=== PATIENT | female | born 1970 | race Caucasian/White ===

== ENCOUNTER → 2020-11-21 09:19 | Outpatient (BNVA) | payer OTHER, SELFPAY | PROVIDERS: PCP Internal Medicine; Visit Provider Nurse Practitioner ==

== ENCOUNTER 2020-11-25 15:42 | Outpatient (REF) | payer OTHER, SELFPAY ==
--- NOTE | ~2020-11-25 | XR_ITS ---
EXAMINATION: XR KNEE, RIGHT CLINICAL INFORMATION: Pain in right knee COMPARISON: None TECHNIQUE: Four views of the right knee. FINDINGS: No fracture or subluxation. Compartmental joint spaces are maintained. Small joint effusion. The soft tissues appear unremarkable. XR/XR knee RT 4V IMPRESSION: Small joint effusion. No acute osseous abnormality.
== END 2020-11-25 15:43 | disposition home or self-care (01) ==
LOC: HO.HMGCX 15:42
PROVIDERS: PCP Internal Medicine; Visit Provider Hospitalist
DX: M25.561 Pain in right knee (principal)
CPT/HCPCS: 73564

== ENCOUNTER 2020-12-17 18:27 | Outpatient (REF) | payer OTHER, SELFPAY ==
--- NOTE | ~2020-12-17 | MR_ITS ---
EXAMINATION: MR KNEE WITHOUT CONTRAST, RIGHT CLINICAL INFORMATION: Pain in right knee. Patient reports medial pain with symptoms for 2 months, no injury. COMPARISON: XR right knee 11/25/2020 TECHNIQUE: MRI of the knee without contrast was performed using routine sequences on a high-field scanner. FINDINGS: MENISCI: Medial Meniscus: Intact Lateral Meniscus: Intact LIGAMENTS: Cruciate: Intact Collateral: Intact EXTENSOR MECHANISM: Intact ARTICULAR CARTILAGE/BONE: Patellofemoral Compartment: Normal Medial Compartment: There is moderate patchy bone marrow edema in the medial femoral condyle extending to the intercondylar region, most intense in the immediate subchondral region. There is associated mild cortical thickening or sclerosis. There is no definite discrete subchondral fracture. The overlying cartilage appears intact. There is associated edema in the adjacent intercondylar fat. Lateral Compartment: Normal. JOINT FLUID AND BURSAE: There is a trace joint effusion. MR/MR knee RT wo con IMPRESSION: 1. Moderate patchy bone marrow edema in the medial femoral condyle, most intense in the subarticular region. Although there is no definite discrete fracture identified, this may represent an insufficiency injury. 2. Trace joint effusion. 3. Intact menisci and ligaments.
== END 2020-12-17 18:28 | disposition home or self-care (01) ==
LOC: HO.MRI 18:27
PROVIDERS: PCP Internal Medicine; Visit Provider Internal Medicine
DX: M25.561 Pain in right knee (principal)
CPT/HCPCS: 73721

== ENCOUNTER → 2021-05-27 09:01 | Outpatient (BNVA) | payer OTHER, SELFPAY | PROVIDERS: PCP Internal Medicine; Visit Provider Nurse Practitioner ==

== ENCOUNTER 2021-08-20 09:46 | Outpatient (REF) | payer OTHER, SELFPAY | END 2021-08-20 09:47 | disposition home or self-care (01) | LOC: HO.HMGCLDS 09:46 | PROVIDERS: PCP Internal Medicine; Visit Provider Internal Medicine | DX: Z20.822 Contact with and (suspected) exposure to COVID-19 (principal) | CPT/HCPCS: C9803; U0003; U0005 ==

== ENCOUNTER 2021-09-24 08:15 | Outpatient (REF) | payer OTHER, SELFPAY | END 2021-09-24 08:16 | disposition home or self-care (01) | LOC: HO.HMGCLDS 08:15 | PROVIDERS: Visit Provider Internal Medicine | DX: Z20.822 Contact with and (suspected) exposure to COVID-19 (principal) | CPT/HCPCS: C9803; U0003; U0005 ==

== ENCOUNTER 2022-05-02 07:01 | Outpatient (REF) | payer OTHER, SELFPAY ==
[2022-05-02 11:10] LABS: MANUAL DIFF FLAG NO
[2022-05-02 11:16] LABS: Basophils Percent Auto 0.5 % (0-2); Eosinophils Absolute Auto 0.3 X10*3/uL (0.0-0.4); Eosinophils Percent Auto 4.2 % (0-4); Hematocrit 38.8 % (37.0-47.0); Hemoglobin 12.2 g/dl (12.0-16.0); Imm Gran Abs Auto 0.03 X10*3/uL (0.00-0.03); Imm Gran Pct Auto 0.4 % (0.0-0.4); Lymphocytes Absolute Auto 2.9 X10*3/uL (1.2-4.9); Lymphocytes Percent Auto 38.8 % (20-40); Mean Corpuscular HGB Conc 31.4 g/dl (31.0-35.0); Mean Corpuscular Hemoglobin 23.2 pg (27.0-33.0); Mean Corpuscular Volume 73.9 fL (80.0-98.0); Mean Platelet Volume 10.9 fL (9.4-12.3); Monocytes Absolute Auto 0.7 X10*3/uL (0.1-1.2); Monocytes Percent Auto 9.1 % (2-11); Neutrophils Absolute Auto 3.5 x10*3/uL (2.0-8.3); Platelet Count 209 X10*3/uL (160-400); Red Blood Count 5.25 X10*6/uL (4.20-5.50); Red Cell Distribution Width 18.5 % (11.0-16.0); White Blood Count 7.4 X10*3/uL (4.8-10.8)
[2022-05-02 11:28] LABS: Appearance Urine CLEAR; Color Urine YELLOW; Glucose Urine UA NEG (NEG); Leukocyte Esterase Urine NEG (NEG); Nitrite Urine NEG (NEG); PH 6.5 (5.0-8.0); Urine Blood TRACE (NEG); Urine Ketones NEG (NEG); Urine Protein TRACE MG/DL (NEG-TRACE)
[2022-05-02 11:42] LABS: Alanine Aminotransferase 10 U/L (0-31); Albumin Level 4.3 g/dL (3.5-5.0); Alkaline Phosphatase 66 U/L (39-117); Anion Gap 17 (12-20); Aspartate Amino Transferase 13 U/L (5-31); Bilirubin Total 0.4 mg/dL (0.0-1.0); Blood Urea Nitrogen 11 mg/dL (9-16); Calcium 8.8 mg/dL (8.4-10.2); Carbon Dioxide 21 mmol/L (22-29); Chloride 104 mmol/L (96-108); Cholesterol 140 mg/dL; Estimated Glomerular Filt Rate > 60; Glucose Fasting 95 mg/dL (60-99); HDL Cholesterol 57 mg/dL; LDL Cholesterol Calculated 40 mg/dl; Sodium 138 mmol/L (135-145); Total Protein 6.8 g/dL (6.5-8.0); Triglycerides 219 mg/dL
[2022-05-02 11:57] LABS: RBC Urine 0 /HPF (0); Squamous Epithelial Cell Urine 3+ /LPF; WBC Urine 0 /HPF (0-4)
[2022-05-02 12:03] LABS: TSH reflex Free T4 0.86 uIU/mL (0.32-4.0)
== END 2022-05-02 07:02 | disposition home or self-care (01) ==
LOC: HO.HMGCLDS 07:01
PROVIDERS: PCP Internal Medicine; Visit Provider Internal Medicine
DX: Z00.00 Encounter for general adult medical examination without abnormal findings (principal)
CPT/HCPCS: 36415; 80053; 80061; 81001; 84443; 85025

== ENCOUNTER 2022-05-13 16:25 | Outpatient (REF) | payer OTHER, SELFPAY ==
[2022-05-13 17:19] LABS: Influenza A PCR NEGATIVE (Negative); Influenza B PCR NEGATIVE (Negative); Resp Syncy Virus RNA Qual PCR NEGATIVE (Negative); SARS COV2 PCR INHOUSE POSITIVE (Negative)
== END 2022-05-13 16:26 | disposition home or self-care (01) ==
LOC: HO.LNP 16:25
PROVIDERS: Visit Provider Family Medicine
DX: Z20.822 Contact with and (suspected) exposure to COVID-19 (principal); B34.9 Viral infection, unspecified
CPT/HCPCS: 0241U

== ENCOUNTER 2022-06-17 14:34 | Outpatient (REF) | payer OTHER, SELFPAY ==
[2022-06-20 14:16] LABS: HPV mRNA E6/E7 rflx Not Detected (Not Detected)
== END 2022-06-17 14:35 | disposition home or self-care (01) ==
LOC: HO.LNP 14:34
PROVIDERS: Visit Provider Internal Medicine
DX: Z01.419 Encounter for gynecological examination (general) (routine) without abnormal findings (principal); Z11.51 Encounter for screening for human papillomavirus (HPV)
CPT/HCPCS: 87624; 88142

== ENCOUNTER 2022-10-21 11:19 | Outpatient (REF) | payer OTHER, SELFPAY ==
[2022-10-21 12:15] LABS: Influenza A PCR NEGATIVE (Negative); Influenza B PCR NEGATIVE (Negative); Resp Syncy Virus RNA Qual PCR NEGATIVE (Negative); SARS COV2 PCR INHOUSE POSITIVE (Negative)
== END 2022-10-21 11:20 | disposition home or self-care (01) ==
LOC: HO.LNP 11:19
PROVIDERS: Visit Provider Internal Medicine
DX: R43.9 Unspecified disturbances of smell and taste (principal); Z20.822 Contact with and (suspected) exposure to COVID-19
CPT/HCPCS: 0241U

== ENCOUNTER 2023-06-14 08:59 | Outpatient (AMB) | payer OTHER, SELFPAY ==
--- NOTE | 2023-06-14 09:30 | MHC.OFFWIV ---
Intake Vital Signs 06/14/23 09:34 Height 4 ft 10 in Weight 54.148 kg BMI 24.9 BP 120/72 Blood Pressure Location Lt brachial Position Sitting Pulse 82 Pulse Source Pulse Oximeter Temp 96.3 F L Temp Source Temporal Artery Scan Pulse Oximetry (%) 100 Oxygen Delivery Method Room Air Intake Visit Reasons: EST/blood pressure issues Intake Note: Pt is here c/o having high BP over the weekend reading 163/103. Pt states she did take her bp med today and is reading 120/72. Patient Tobacco Use Status: Current everyday Tobacco user Allergies No Known Allergies [No Known Allergies*] Allergy (Verified 06/14/23 09:30) Do you need a note to return to daycare/school/sports/work: Yes HPI EST/blood pressure issues HPI Details Patient presents with intermittent heart palpitations over the past 1-2 weeks. She notes some episodes of high blood pressure even when taking her blood pressure med. Over the weekend she got readings of 160s/100s on a few occasions with a home cuff. She notes often times at work she will be standing and get heart palpitations where it feels like her heart will beat out of her chest. It lasts a few minutes then resolved but over return over the next hour or 2. I did review her previous labs from last year and she did have mild anemia and a low TSH but within normal limits. No personal history of thyroid disease however she notes significant family history. She also notes intake of 4 alcoholic drinks per night times 20 years. She notes when she is drinking she does not have these palpitations. Denies chest pain, shortness of breath, dyspnea on exertion. PENDING SALE TO [facility] Medical History Chronic anxiety COPD, mild Diarrhea Dysphagia GERD (gastroesophageal reflux disease) Hemorrhoids Surgical History History of section History of esophagogastroduodenoscopy (EGD) History of tubal ligation Hx of cholecystectomy Hx of colonoscopy Hx of tonsillectomy Family History Father No problems noted. Mother No problems noted. Social History Housing: House Alcohol intake: current Alcohol intake frequency: 3 or more drinks per day Patient Tobacco Use Status: Current everyday Tobacco user Cigarette Packs Per Day: 1 Cigarettes Per Day: 20 e-Cigarette/Vaping Use: Never Used service: No Current occupational status: employed Cognitive needs: No Hearing needs: No Vision needs: Yes Review of Systems Const Reports as per HPI and Reports no additional complaints Card Reports as per HPI and Reports no additional complaints Resp Reports as per HPI and Reports no additional complaints Neuro Reports no additional complaints and Reports as per HPI Physical Exam Vital Signs: Last Vital Signs Temp 96.3 F L 06/14/23 09:34 Pulse 82 06/14/23 09:34 BP 120/72 06/14/23 09:34 Pulse Ox 100 06/14/23 09:34 Oxygen Delivery Method Room Air 06/14/23 09:34 BMI result Body Mass Index 24.9 Const General: cooperative, comfortable and no acute distress Orientation/consciousness: patient oriented x3 Resp Effort & Inspection: normal respiratory effort Auscultation: clear to auscultation bilaterally Cardio Rate: regular rate Rhythm: regular rhythm Heart sounds: S1 normal heart sound present and S2 normal heart sound present Neuro General: patient oriented x3 Extrem General: Yes no pedal edema Office Procedures EKG 36101-[id number], Complete Results Reviewed Results Reviewed: EKG reviewed by me shows normal sinus rhythm with regular rate and intervals are no signs of ischemia. Assessment & Plan Assessment & Plan (1) Heart palpitations: Code(s): R00.2 - Palpitations Plan: Will check basic labs to rule out thyroid disease, anemia, electrolyte imbalance. I did discuss with patient that alcohol likely plays a role in her symptoms as withdrawals can cause arrhythmia. We discussed alcohol intake reduction moving towards complete cessation. She has follow-up with her PCP in 2-3 weeks. I encouraged her to reduce her nightly alcohol intake by 1 drink per week between now and then to see if it makes a difference in her symptoms. PCP may consider Holter monitor p.r.n. if symptoms persist. ER if chest pain shortness of breath or any persisting palpitations. (2) Alcohol intake above recommended sensible limits with complication: Code(s): F10.99 - Alcohol use, unspecified with unspecified alcohol-induced disorder Orders: Orders Complete Blood Count Auto Diff Today R00.2 - Palpitations IRON PROFILE Today R00.2 - Palpitations Basic Metabolic Panel Today R00.2 - Palpitations TSH reflex Free T4 Today R00.2 - Palpitations Coding Level of Care Code Est Pt Level 4 (73985) Diagnoses Heart palpitations R00.2 Alcohol intake above recommended sensible limits with complication F10.99 CPT Codes EKG - CPT: 28803-[id number], Complete ([id number])
[2023-06-14 09:34] VITALS: BP 120/72; PULSE 82; TEMP 35.7; O2SAT 100; BMI 24.9
== END 2023-06-14 10:49 | disposition home or self-care (01) ==
PROVIDERS: PCP Internal Medicine; Visit Provider Physician Assistant
DX: R00.2 Palpitations (principal); F10.99 Alcohol use, unspecified with unspecified alcohol-induced disorder
CPT/HCPCS: 93000; 99214

== ENCOUNTER 2023-06-14 10:51 | Outpatient (REF) | payer OTHER, SELFPAY ==
[2023-06-14 13:06] LABS: MANUAL DIFF FLAG NO
[2023-06-14 13:16] LABS: Basophils Percent Auto 0.3 % (0-2); Eosinophils Absolute Auto 0.1 X10*3/uL (0.0-0.4); Eosinophils Percent Auto 1.2 % (0-4); Hematocrit 38.9 % (37.0-47.0); Hemoglobin 11.5 g/dl (12.0-16.0); Imm Gran Abs Auto 0.04 X10*3/uL (0.00-0.03); Imm Gran Pct Auto 0.4 % (0.0-0.4); Lymphocytes Absolute Auto 2.7 X10*3/uL (1.2-4.9); Mean Corpuscular HGB Conc 29.6 g/dl (31.0-35.0); Mean Corpuscular Hemoglobin 22.2 pg (27.0-33.0); Mean Corpuscular Volume 75.1 fL (80.0-98.0); Mean Platelet Volume 10.6 fL (9.4-12.3); Monocytes Absolute Auto 0.7 X10*3/uL (0.1-1.2); Monocytes Percent Auto 6.2 % (2-11); Neutrophils Absolute Auto 6.9 x10*3/uL (2.0-8.3); Neutrophils Percent Auto 65.9 % (45-73); Platelet Count 222 X10*3/uL (160-400); Red Blood Count 5.18 X10*6/uL (4.20-5.50); White Blood Count 10.4 X10*3/uL (4.8-10.8)
[2023-06-14 13:48] LABS: Anion Gap 14 (12-20); Blood Urea Nitrogen 10 mg/dL (9-16); Calcium 9.1 mg/dL (8.4-10.2); Carbon Dioxide 20 mmol/L (22-29); Chloride 106 mmol/L (96-108); Estimated Glomerular Filt Rate > 60; Glucose Random 88 mg/dL (60-115); Iron 65 mcg/dL (30-160); Percent Iron Saturation 14 % (15-50); Potassium 4.2 mmol/L (3.3-5.1); Sodium 136 mmol/L (135-145); Total Iron Binding Capacity 454 mcg/dL (228-428); Unsaturated Iron Binding 389 ug/dL
[2023-06-14 13:49] LABS: TSH reflex Free T4 0.88 uIU/mL (0.32-4.0)
== END 2023-06-14 10:52 | disposition home or self-care (01) ==
LOC: HO.HMGCLDS 10:51
PROVIDERS: PCP Internal Medicine; Visit Provider Physician Assistant
DX: R00.2 Palpitations (principal); F10.99 Alcohol use, unspecified with unspecified alcohol-induced disorder; R03.0 Elevated blood-pressure reading, without diagnosis of hypertension
CPT/HCPCS: 36415; 80048; 83540; 84443; 85025

== ENCOUNTER → 2023-06-30 09:23 | Outpatient (BNVA) | payer OTHER, SELFPAY | PROVIDERS: PCP Internal Medicine; Visit Provider Physician Assistant | DX: M65.841 Other synovitis and tenosynovitis, right hand (principal) | CPT/HCPCS: 99204 ==

== ENCOUNTER 2023-07-06 08:51 | Outpatient (AMB) | payer OTHER, SELFPAY ==
[2023-07-06 08:58] VITALS: BP 120/60; PULSE 90; O2SAT 98; BMI 24.7
--- NOTE | 2023-07-06 08:58 | MHC.PC.OV ---
Vital Signs 07/06/23 08:58 Height 4 ft 10 in Weight 118 lb BMI 24.7 BP 120/60 Blood Pressure Location Lt brachial Position Sitting Pulse 90 Pulse Source Pulse Oximeter Pulse Oximetry (%) 98 Oxygen Delivery Method Room Air Intake Visit Reasons: Physical exam Intake Note: Pt is here today for PE. Allergies No Known Allergies [No Known Allergies*] Allergy (Verified 07/06/23 09:00) Medication List - Last Reconciled 07/06/23 by Agatha Cosme MD metoprolol succinate ER 50 mg PO DAILY Tobacco use date assessed: 07/06/23 Dental Screening Dental Screen Date: 07/06/23 Did you have a dental visit in the last 12 months?: No Did you have a dental problem in the last 6 months where you did not have access to dental care?: No Was dental information given to patient?: Patient declined HPI Physical exam HPI Details Patient presents for physical. [facility] Medical History (Updated 07/06/23 @ 09:46 by Agatha Cosme MD) Annual physical exam Diarrhea GERD (gastroesophageal reflux disease) Dysphagia Chronic anxiety COPD, mild Hemorrhoids Surgical History History of tubal ligation History of section Hx of tonsillectomy History of esophagogastroduodenoscopy (EGD) Hx of colonoscopy Hx of cholecystectomy Family History Father No problems noted. Mother No problems noted. Social History Housing: House Alcohol intake: current Alcohol intake frequency: 3 or more drinks per day Patient Tobacco Use Status: Current everyday Tobacco user Tobacco use type: Cigarette Cigarette Packs Per Day: 1 Cigarettes Per Day: 20 e-Cigarette/Vaping Use: Never Used service: No Current occupational status: employed Cognitive needs: No Hearing needs: No Vision needs: Yes Questionnaire PHQ-9 Over the last 2 weeks, how often have you been bothered by any of the following problems? 1. Little interest or pleasure in doing things: not at all 2. Feeling down, depressed, or hopeless: not at all 3. Trouble falling or staying asleep, or sleeping too much: nearly every day 4. Feeling tired or having little energy: nearly every day 5. Poor appetite or overeating: nearly every day 6. Feeling bad about yourself - or that you are a failure or have let yourself or your family down: not at all 7. Trouble concentrating on things, such as reading the newspaper or watching television: not at all 8. Moving or speaking so slowly that other people could have noticed. Or the opposite - being so fidgety or restless that you have been moving around a lot more than usual: not at all 9. Thoughts that you would be better off or of hurting yourself in some way: not at all Total score: 9 Depression Screening Interpretation: Positive Depression Screening Done: Yes Source: Developed by Drs. Harshil Giron, Mira Conrad, Andres Luke and colleagues, with an educational lily from [employer]. Thrive Questionnaire Date Thrive assessed: 07/06/23 I am a: Patient What is your living situation today?: I have a steady place to live Within the past 12 months, did the food you bought not last and you didn't have the money to get more?: Never true Within the past 12 months, did you worry whether your food would run out before you got money to buy more?: Never true Do you have trouble paying for medicines?: No Do you have trouble getting transportation to medical appointments?: No Do you have trouble paying your heating and electricity bill?: No Do you have trouble taking care of your child, family member or friend?: No Do you have trouble with day-to-day activities such as bathing, preparing meals, shopping, managing finances, etc.?: No Are you currently unemployed and looking for a job?: No Are you interested in more education?: No Please select the resources that you would like help with: None AUDIT C Alcohol Use Questionnaire (AUDIT-C) 1. How often do you have a drink containing alcohol?: 4 or more times a week 2. How many drinks containing alcohol do you have on a typical day when you are drinking?: 3 or 4 3. How often do you have six or more drinks on one occasion?: Never Total Score: 5 MARCO ANTONIO-7 AMB Questionnaire MARCO ANTONIO-7 Date MARCO ANTONIO - 7 assessed: 07/06/23 Feeling nervous, anxious, or on edge: 0 = Not at all Not being able to stop or control worryin = Not at all Worrying too much about different things: 3 = Nearly every day Trouble relaxin = Several days Being so restless that it is hard to sit still: 3 = Nearly every day Becoming easily annoyed or irritable: 0 = Not at all Feeling afraid as if something awful might happen: 0 = Not at all Total MARCO ANTONIO-7 score (0-4 normal; 5-9 mild; 10-14 moderate; 15-21 severe): 7 Source: Developed by Drs. Harshil Giron, Mira Conrad, Andres Luke and colleagues, with an educational lily from [employer]. Review of Systems Const All systems reviewed & are unremarkable except as noted in HPI and below Reports no additional complaints Eyes Reports no additional complaints ENT Reports no additional complaints Card Reports no additional complaints Resp Reports no additional complaints GI Reports no additional complaints Reports no additional complaints Musc Reports no additional complaints Physical exam (Primary Care) Vital Signs: Last Vital Signs Pulse 90 07/06/23 08:58 BP 120/60 07/06/23 08:58 Pulse Ox 98 07/06/23 08:58 Oxygen Delivery Method Room Air 07/06/23 08:58 BMI result Body Mass Index 24.7 Tobacco/Smoking Status: Tobacco use Status Tobacco use date assessed 07/06/23 07/06/23 09:04 Patient Tobacco Use Status Current everyday Tobacco 07/06/23 09:04 Tobacco use type Cigarette 07/06/23 09:04 e-Cigarette/Vaping Use Never Used 07/06/23 09:04 Depression Screening Interpretation: Positive Thrive Assessment: Date of Thrive Assessment Date Thrive assessed 05/01/22 07/06/23 09:04 Const General: no acute distress HENMT Face and sinus: Yes normal facial exam Mouth: Normal oral and palatal mucosa present Throat: Yes posterior oropharynx normal Eyes General: appearance normal, both eyes and all related structures Resp Effort & Inspection: normal respiratory effort Auscultation: wheezes Cardio Rhythm: regular rhythm Heart sounds: S1 normal heart sound present and S2 normal heart sound present GI Inspection: Yes normal to inspection Palpation (GI): Soft to palpation Percussion: Yes normal to percussion Auscultation: normal bowel sounds Assessment and Plan Assessment & Plan (1) Annual physical exam: Code(s): Z00.00 - Encounter for general adult medical examination without abnormal findings Plan: A well balanced diet regular physical activity discussed with the patient. She will schedule mammogram and obtain colonoscopy report (2) Cough: Code(s): R05.9 - Cough, unspecified Plan: For chronic cough check chest x-ray, obtain PFTs since started Spiriva. Tobacco quitting discussed with the patient (3) Hemorrhoids: Comment: intermittent rectal bleed, colonoscopy 2014? Dr. Guzman , pt will get a report 07/12 Code(s): K64.9 - Unspecified hemorrhoids Orders: Orders Hemoglobin A1c Today Z00.00 - Encounter for general adult medical examination without abnormal findings Lipid Panel Today Z00.00 - Encounter for general adult medical examination without abnormal findings PFT pulmonary function test Today J44.9 - Chronic obstructive pulmonary disease, unspecified Medications: New tiotropium bromide 2.5 mcg/actuation (Spiriva Respimat) 2 puffs inhalation DAILY 4 grams 4RF Coding Level of Care Code Est Pt Prev Care 40-64y(32651) Diagnoses Annual physical exam Z00.00 Cough R05.9 Hemorrhoids K64.9
== END 2023-07-06 09:55 | disposition home or self-care (01) ==
PROVIDERS: PCP Internal Medicine; Visit Provider Internal Medicine
DX: Z00.00 Encounter for general adult medical examination without abnormal findings (principal); R05.9 Cough, unspecified; K64.9 Unspecified hemorrhoids
CPT/HCPCS: 99396

== ENCOUNTER 2023-07-06 09:42 | Outpatient (REF) | payer OTHER, SELFPAY ==
--- NOTE | ~2023-07-06 | XR_ITS ---
EXAMINATION: XR CHEST CLINICAL INFORMATION: Cough, unspecified COMPARISON: Chest 12/07/2017 TECHNIQUE: 2 views of the chest were obtained. FINDINGS: No significant abnormality is noted involving the heart, lungs, mediastinum or soft tissues. There are mild degenerative changes of the thoracic spine. Surgical clips in the right upper quadrant are consistent with prior cholecystectomy. XR/XR chest 2V IMPRESSION: No acute cardiopulmonary disease.
== END 2023-07-06 09:43 | disposition home or self-care (01) ==
LOC: HO.HMGCX 09:42
PROVIDERS: PCP Internal Medicine; Visit Provider Internal Medicine
DX: R05.9 Cough, unspecified (principal)
CPT/HCPCS: 71046

== ENCOUNTER → 2023-07-08 09:26 | Outpatient (BNVA) | payer OTHER, SELFPAY | PROVIDERS: PCP Internal Medicine; Visit Provider Physician Assistant | DX: M65.841 Other synovitis and tenosynovitis, right hand (principal) | CPT/HCPCS: 99213 ==

== ENCOUNTER 2023-07-17 07:39 | Outpatient (REF) | payer OTHER, SELFPAY ==
[2023-07-17 11:35] LABS: Cholesterol 127 mg/dL (<200); HDL Cholesterol 45 mg/dL (>40); LDL Cholesterol Calculated 50 mg/dL (<100); Triglycerides 164 mg/dL (<150)
[2023-07-17 11:40] LABS: Estimated Average Glucose 105 mg/dL; Hemoglobin A1C 85.3938 umol/L; Hemoglobin A1c % 5.3 % (<6.0)
== END 2023-07-17 07:40 | disposition home or self-care (01) ==
LOC: HO.HMGCLDS 07:39
PROVIDERS: PCP Internal Medicine; Visit Provider Internal Medicine
DX: Z00.00 Encounter for general adult medical examination without abnormal findings (principal)
CPT/HCPCS: 36415; 80061; 83036

== ENCOUNTER 2023-07-24 09:15 | Outpatient (AMB) | payer OTHER, SELFPAY ==
[2023-07-24 09:54] VITALS: BP 134/80; PULSE 88; TEMP 36.6; O2SAT 99; BMI 24.7
--- NOTE | 2023-07-24 09:54 | AM.OFFWIN_ITS ---
Intake Vital Signs 07/24/23 09:54 Height 4 ft 10 in Weight 118 lb 4 oz BMI 24.7 BP 134/80 Blood Pressure Location Lt brachial Position Sitting Pulse 88 Pulse Source Pulse Oximeter Temp 97.9 F Temp Source Temporal Artery Scan Pulse Oximetry (%) 99 Oxygen Delivery Method Room Air Intake Visit Reasons: EP wheezing/coughing [phone] Intake Note: pt is here for c/o coughing and wheezing 1x week Patient Tobacco Use Status: Current everyday Tobacco user Allergies No Known Allergies [No Known Allergies*] Allergy (Verified 07/24/23 09:55) Do you need a note to return to daycare/school/sports/work: Yes HPI EP wheezing/coughing [phone] HPI Details Patient is 53-year-old asthmatic who complains of a few days of acute respiratory symptoms this seems to be aggravating her asthma causing wheezing and intermittent coughing. She has not tested yet for COVID. She states that albuterol temporarily relieves symptoms. She has associated postnasal drip and nasal congestion, with no reported fever or chills, and she denies nausea vomiting or diarrhea malaise or myalgias, weakness or dizziness, current chest pain or congestion, shortness of breath, significant sore throat, loss of sense of taste or smell or other significant associated symptoms. Reviewed past medical history [facility] Medical History (Updated 07/06/23 @ 09:46 by Agatha Cosme MD) Annual physical exam Diarrhea GERD (gastroesophageal reflux disease) Dysphagia Chronic anxiety COPD, mild Hemorrhoids Surgical History History of tubal ligation History of section Hx of tonsillectomy History of esophagogastroduodenoscopy (EGD) Hx of colonoscopy Hx of cholecystectomy Family History Father No problems noted. Mother No problems noted. Social History Housing: House Alcohol intake: current Alcohol intake frequency: 3 or more drinks per day Patient Tobacco Use Status: Current everyday Tobacco user Tobacco use type: Cigarette Cigarette Packs Per Day: 1 Cigarettes Per Day: 20 e-Cigarette/Vaping Use: Never Used service: No Current occupational status: employed Cognitive needs: No Hearing needs: No Vision needs: Yes Review of Systems Const All systems reviewed & are unremarkable except as noted in HPI and below Physical Exam Vital Signs: Last Vital Signs Temp 97.9 F 07/24/23 09:54 Pulse 88 07/24/23 09:54 BP 134/80 07/24/23 09:54 Pulse Ox 99 07/24/23 09:54 Oxygen Delivery Method Room Air 07/24/23 09:54 BMI result Body Mass Index 24.7 Const General: cooperative, healthy appearing, comfortable, no acute distress, alert, awake, Physically active and well groomed; No anxious, diaphoretic, ill appearing, intoxicated appearing, poor hygiene or tired appearing Nutritional Appearance: average body habitus Orientation/consciousness: oriented to person Limitations: no limitations HEENT Head: Yes normal to inspection, Yes normocephalic and Yes atraumatic Ears: hearing grossly normal bilaterally, external ears normal, EAC's normal and TM abnormal (b/l) erythematous General nose exam: Normal external nose present, Normal nares present, No nasal polyps present, Normal nasal mucous membranes and turbinates present, Normal septum present and No nasal discharge present Face and sinus: Yes face symmetric and Yes sinus tenderness Mouth: Normal oral and palatal mucosa present, lip normal, tongue normal, no drooling and no trismus Throat: Yes uvula midline, Yes abnormal tonsil (mildly erythematous bilaterally), No peritonsillar mass, Yes postnasal drainage, No uvular edema and No cobblestoning Eyes General: appearance normal, both eyes and all related structures Neck Neck: Yes normal visual inspection, Yes no lymphadenopathy, Yes trachea midline, Yes supple and No anterior neck swelling Chest Chest palpation & inspection: normal palpation of entire chest wall Resp Effort & Inspection: normal respiratory effort, able to speak in complete sentences, no audible wheezes, no grunting, not labored, no nasal flaring, no retractions and symmetric chest movement Auscultation: clear to auscultation bilaterally, no crackles, no rales, no rho nchi, no wheezes, lung sounds not diminished and No rub present Cardio Rate: regular rate Rhythm: regular rhythm Skin Other: Good color, warm and dry Neuro General: oriented to person Psych Appearance: grossly normal Mental Status: mental status grossly normal Speech and movement: Normal speech and movement present Affect: normal affect Attitude: cooperative Thought process: Normal thought process present Insight: Good insight present (Psych) Judgement: Good judgement present (Psych) Results Reviewed Results Reviewed: No acute cardiopulmonary disease on wet read of two view chest x-ray Assessment & Plan Assessment & Plan (1) Wheezing: Code(s): R06.2 - Wheezing Plan: Pending results for rapid COVID testing, as well as respiratory panel to rule out flu COVID and RSV. Will start patient on oral prednisone due to wheezing on exam, as well as frequent congested as well as reactive coughing, in setting of exacerbated asthma due to illness. Will also start her on azithromycin course, and she can use albuterol as needed with her nebulizer, as this improved her symptoms in the office today. Chest x-ray shows no acute cardiopulmonary disease on wet read. She is stable for outpatient treatment, but knows to go to the emergency department if she develops symptoms of shortness of breath. (2) Asthma exacerbation: Code(s): J45.901 - Unspecified asthma with (acute) exacerbation Qualifiers: Asthma severity: mild Asthma persistence: unspecified Qualified Code(s): J45.901 - Unspecified asthma with (acute) exacerbation Orders: Orders BinaxNOW Covid-19 Ag 07/24/23 Z20.822 - Contact with and (suspected) exposure to COVID-19 SARS-CoV2/FLU/RSV 07/24/23 R05.9 - Cough, unspecified XR chest 2V 07/24/23 R05.9 - Cough, unspecified AMB Nebulizer Treatment 07/24/23 R06.2 - Wheezing Medications: New albuterol sulfate 2.5 mg (3 mL) inhalation Q4-6H PRN 90 mL 2RF shortness of breath or wheezing prednisone then take 2 and half tabs daily for 3 days, then take 2 tabs daily for 3 days, then take 1 and half tabs daily for 3 days, and then take 1 tab daily for 3 days 60 mg (3 x 20 mg) PO DAILY 30 tabs 0RF 3 days azithromycin take 500 mg today (day 1), then 250 mg for 4 days (days 2-5) PO 6 tabs 0RF albuterol sulfate 2.5 mg (3 mL) inhalation ONCE 3 mL 0RF R06.2 - Wheezing Coding Level of Care Code Est Pt Level 5 (44529) Diagnoses Wheezing R06.2 Mild asthma with exacerbation, unspecified whether persistent J45.901 Asthma severity: mild Asthma persistence: unspecified
== END 2023-07-24 12:11 | disposition home or self-care (01) ==
PROVIDERS: PCP Internal Medicine; Visit Provider Physician Assistant Medical
DX: J45.901 Unspecified asthma with (acute) exacerbation (principal)
CPT/HCPCS: 99051; 99214

== ENCOUNTER 2023-07-24 10:43 | Outpatient (REF) | payer OTHER, SELFPAY ==
--- NOTE | ~2023-07-24 | XR_ITS ---
EXAMINATION: CHEST 2 VIEWS CLINICAL INFORMATION: R05.9 - Cough, unspecified. COMPARISON: 07/06/2023. TECHNIQUE: PA and lateral views of the chest obtained. FINDINGS: The lungs are well expanded. No focal infiltrate, effusion, edema, or pneumothorax. Cardiac and mediastinal silhouettes are within normal limits for technique. No acute bony abnormality seen with degenerative changes in the spine. Surgical clips in the right upper quadrant. XR/XR chest 2V IMPRESSION: No evidence of acute disease
[2023-07-24 11:53] LABS: Binax Internal Control QC Valid; Binax Now Covid-19 Ag Negative (Negative); Binax Performed by: HO.BONILM
== END 2023-07-24 10:44 | disposition home or self-care (01) ==
LOC: HO.HMGCX 10:43
PROVIDERS: PCP Internal Medicine; Visit Provider Physician Assistant Medical
DX: Z11.52 Encounter for screening for COVID-19 (principal); Z20.822 Contact with and (suspected) exposure to COVID-19; R05.9 Cough, unspecified
CPT/HCPCS: 71046; 87811; C9803

== ENCOUNTER 2023-07-24 11:25 | Outpatient (REF) | payer OTHER, SELFPAY ==
[2023-07-24 15:05] LABS: Influenza A PCR NEGATIVE (Negative); Influenza B PCR NEGATIVE (Negative); Resp Syncy Virus RNA Qual PCR NEGATIVE (Negative); SARS COV2 PCR INHOUSE NEGATIVE (Negative)
== END 2023-07-24 11:26 | disposition home or self-care (01) ==
LOC: HO.LAB 11:25
PROVIDERS: Visit Provider Physician Assistant Medical
DX: Z11.52 Encounter for screening for COVID-19 (principal); Z20.822 Contact with and (suspected) exposure to COVID-19; R05.9 Cough, unspecified
CPT/HCPCS: 0241U

== ENCOUNTER 2023-08-03 07:38 | Outpatient (REF) | payer OTHER, SELFPAY ==
--- NOTE | 2023-08-03 08:28 | PFT_ITS ---
Forced vital capacity 104%, FEV1 84%, FEV1/FVC ratio is 66. [id number] 38% and MVV 76%. Post bronchodilator therapy, there is a significant improvement in [id number]. No other change. Total lung capacity 98% and residual volume 101%. Diffusion capacity 73%. CONCLUSION: Mild obstructive airway disorder. There is good response to bronchodilator therapy as shown by improved [id number]. These findings suggest bronchial asthma, mild, clinical correlation is recommended. MD GREG Santana/MODL / [id number]
== END 2023-08-03 07:39 | disposition home or self-care (01) ==
LOC: HO.RESP 07:38
PROVIDERS: PCP Internal Medicine; Visit Provider Internal Medicine
DX: J44.9 Chronic obstructive pulmonary disease, unspecified (principal)
CPT/HCPCS: 94010; 94727; 94729

== ENCOUNTER → 2023-08-03 08:28 | Outpatient (BNV) | payer OTHER, SELFPAY | PROVIDERS: PCP Internal Medicine; Visit Provider Internal Medicine | DX: J44.9 Chronic obstructive pulmonary disease, unspecified (principal) | CPT/HCPCS: 94060; 94727; 94729 ==

== ENCOUNTER 2023-09-07 10:01 | Outpatient (AMB) | payer OTHER, SELFPAY ==
[2023-09-07 10:04] VITALS: BP 122/66; PULSE 90; O2SAT 99; BMI 25.9
--- NOTE | 2023-09-07 10:04 | MHC.PC.OV ---
Vital Signs 09/07/23 10:04 Height 4 ft 10 in Weight 124 lb BMI 25.9 BP 122/66 Blood Pressure Location Lt brachial Position Sitting Pulse 90 Pulse Source Pulse Oximeter Pulse Oximetry (%) 99 Oxygen Delivery Method Room Air Intake Visit Reasons: 2 month follow up Intake Note: Pt is here today for 2 months follow up visit. Allergies spiriva Adverse Reaction (Intermediate, Uncoded 09/07/23 11:02) Chest Pain Medication List - Last Reconciled 09/07/23 by Agatha Cosme MD albuterol sulfate 2.5 mg (3 mL) inhalation Q4-6H PRN bupropion HCl 75 mg PO TID metoprolol succinate ER 50 mg PO DAILY Tobacco use date assessed: 09/07/23 Dental Screening Dental Screen Date: 09/07/23 Did you have a dental visit in the last 12 months?: No Did you have a dental problem in the last 6 months where you did not have access to dental care?: No Was dental information given to patient?: Patient declined HPI 2 month follow up HPI Details Patient presents for the follow-up of recurrent bronchitis. She tried Spiriva but could not tolerate because of chest pain. Patient has been using albuterol updraft at least twice a day and reports intermittent cough wheezing but no sore throat fever chills or sputum production. She is cutting down on smoking down to half a pack a day. [facility] Medical History (Updated 09/07/23 @ 11:04 by Agatha Cosme MD) Annual physical exam Diarrhea GERD (gastroesophageal reflux disease) Dysphagia Chronic anxiety COPD, mild Hemorrhoids Surgical History History of tubal ligation History of section Hx of tonsillectomy History of esophagogastroduodenoscopy (EGD) Hx of colonoscopy Hx of cholecystectomy Family History Father No problems noted. Mother No problems noted. Social History Housing: House Alcohol intake: current Alcohol intake frequency: 3 or more drinks per day Patient Tobacco Use Status: Current everyday Tobacco user Tobacco use type: Cigarette Cigarettes Per Day: 10 e-Cigarette/Vaping Use: Never Used service: No Current occupational status: employed Cognitive needs: No Hearing needs: No Vision needs: Yes Questionnaire Thrive Questionnaire Date Thrive assessed: 07/06/23 MARCO ANTONIO-7 AMB Questionnaire MARCO ANTONIO-7 Date MARCO ANTONIO - 7 assessed: 07/06/23 Source: Developed by Drs. Harshil Giron, Mira Conrad, Andres Luke and colleagues, with an educational lily from [employer]. Review of Systems Const All systems reviewed & are unremarkable except as noted in HPI and below Reports no additional complaints Eyes Reports no additional complaints ENT Reports no additional complaints Card Reports no additional complaints Resp Reports no additional complaints GI Reports no additional complaints Reports no additional complaints Physical exam (Primary Care) Vital Signs: Last Vital Signs Pulse 90 09/07/23 10:04 BP 122/66 09/07/23 10:04 Pulse Ox 99 09/07/23 10:04 Oxygen Delivery Method Room Air 09/07/23 10:04 BMI result Body Mass Index 25.9 Tobacco/Smoking Status: Tobacco use Status Tobacco use date assessed 09/07/23 09/07/23 10:09 Patient Tobacco Use Status Current everyday Tobacco 09/07/23 10:09 Tobacco use type Cigarette 09/07/23 10:09 e-Cigarette/Vaping Use Never Used 09/07/23 10:09 Thrive Assessment: Date of Thrive Assessment Date Thrive assessed 07/06/23 09/07/23 10:09 Const General: no acute distress HENMT Head: Yes normal to inspection Ears: hearing grossly normal bilaterally Face and sinus: Yes normal facial exam Throat: Yes posterior oropharynx normal Neck Neck: Yes no lymphadenopathy Resp Effort & Inspection: normal respiratory effort Auscultation: wheezes and diminished lung sounds Cardio Rhythm: regular rhythm Heart sounds: S1 normal heart sound present and S2 normal heart sound present Assessment and Plan Assessment & Plan (1) Environmental allergies: Code(s): Z91.09 - Other allergy status, other than to drugs and biological substances Plan: Patient was advised to start Claritin and will be referred to driver starting gate for testing (2) COPD (chronic obstructive pulmonary disease): Comment: Intolerant to Spiriva Code(s): J44.9 - Chronic obstructive pulmonary disease, unspecified Plan: Start Symbicort 80/4.5 2 puffs twice a day and continue albuterol as needed, patient is trying to quit smoking and will try bupropion (3) HTN (hypertension): Code(s): I10 - Essential (primary) hypertension Plan: Change metoprolol to olmesartan 20 mg a day and follow-up in 1 month Orders: Referrals Allergy & Immunology Referral Z91.09 - Other allergy status, other than to drugs and biological substances Medications: New budesonide-formoterol 80-4.5 mcg/actuation (Symbicort) 2 puffs inhalation BID 10.2 grams 1RF olmesartan 20 mg PO DAILY 30 tabs 2RF bupropion HCl administer 6 hours apart 75 mg PO BID 60 tabs 2RF Refilled albuterol sulfate 2.5 mg (3 mL) inhalation Q4-6H PRN 180 mL 3RF shortness of breath or wheezing Discontinued metoprolol succinate ER Discontinued Reason: Doctor's Order 50 mg PO DAILY 90 tabs 3RF Coding Level of Care Code Est Pt Level 4 (22956) Diagnoses Environmental allergies Z91.09 COPD (chronic obstructive pulmonary disease) J44.9 HTN (hypertension) I10
== END 2023-09-07 11:07 | disposition home or self-care (01) ==
PROVIDERS: PCP Internal Medicine; Visit Provider Internal Medicine
DX: Z91.09 Other allergy status, other than to drugs and biological substances (principal); J44.9 Chronic obstructive pulmonary disease, unspecified; I10 Essential (primary) hypertension
CPT/HCPCS: 99214

== ENCOUNTER 2023-10-18 12:19 | Outpatient (AMB) | payer OTHER, SELFPAY ==
--- NOTE | 2023-10-18 12:35 | A.OFFPC_ITS ---
Vital Signs 10/18/23 12:36 Height 4 ft 10 in Weight 124 lb BMI 25.9 BP 110/64 Blood Pressure Location Lt brachial Position Sitting Pulse 81 Pulse Source Pulse Oximeter Pulse Oximetry (%) 99 Oxygen Delivery Method Room Air Intake Visit Reasons: 1 Month Follow Up ( HTN, COPD) Intake Note: Pt is here today for 1 month follow up on HTN and COPD. Allergies spiriva Adverse Reaction (Intermediate, Uncoded 10/18/23 12:39) Chest Pain Medication List - Last Reviewed 10/18/23 by JULIEN Kaiser albuterol sulfate 2.5 mg (3 mL) inhalation Q4-6H PRN budesonide-formoterol 80-4.5 mcg/actuation (Symbicort) 2 puffs inhalation BID bupropion HCl 75 mg PO BID metoprolol succinate ER 50 mg PO DAILY Tobacco use date assessed: 10/18/23 Dental Screening Dental Screen Date: 10/18/23 Did you have a dental visit in the last 12 months?: No Did you have a dental problem in the last 6 months where you did not have access to dental care?: No Was dental information given to patient?: Patient declined HPI 1 Month Follow Up ( HTN, COPD) HPI Details Pt presents for HTN and COPD. Patient could not tolerate olmesartan and restarted metoprolol. She is feeling better and cough resolved patient has been using albuterol up to 3 times a week and did not start Symbicort. she is waiting for an appointment for allergy testing. Patient smokes only 4 cigarettes a day and is trying to quit PFSH Medical History Annual physical exam Diarrhea GERD (gastroesophageal reflux disease) Dysphagia Chronic anxiety COPD, mild Hemorrhoids Surgical History History of tubal ligation History of section Hx of tonsillectomy History of esophagogastroduodenoscopy (EGD) Hx of colonoscopy Hx of cholecystectomy Family History Father No problems noted. Mother No problems noted. Social History Housing: House Alcohol intake: current Alcohol intake frequency: 3 or more drinks per day Patient Tobacco Use Status: Current everyday Tobacco user Tobacco use type: Cigarette Cigarettes Per Day: 10 e-Cigarette/Vaping Use: Never Used service: No Current occupational status: employed Cognitive needs: No Hearing needs: No Vision needs: Yes Questionnaire PHQ-9 Over the last 2 weeks, how often have you been bothered by any of the following problems? 1. Little interest or pleasure in doing things: not at all 2. Feeling down, depressed, or hopeless: not at all 3. Trouble falling or staying asleep, or sleeping too much: nearly every day 4. Feeling tired or having little energy: nearly every day 5. Poor appetite or overeating: not at all 6. Feeling bad about yourself - or that you are a failure or have let yourself or your family down: not at all 7. Trouble concentrating on things, such as reading the newspaper or watching television: not at all 8. Moving or speaking so slowly that other people could have noticed. Or the op posite - being so fidgety or restless that you have been moving around a lot more than usual: not at all 9. Thoughts that you would be better off or of hurting yourself in some way: not at all Total score: 6 Depression Screening Interpretation: Negative Depression Screening Done: Yes Source: Developed by Drs. Harshil Giron, Mira Conrad, Andres Luke and colleagues, with an educational lily from [employer]. Thrive Questionnaire Date Thrive assessed: 10/18/23 I am a: Patient What is your living situation today?: I have a steady place to live Within the past 12 months, did the food you bought not last and you didn't have the money to get more?: Never true Within the past 12 months, did you worry whether your food would run out before you got money to buy more?: Never true Do you have trouble paying for medicines?: No Do you have trouble getting transportation to medical appointments?: No Do you have trouble paying your heating and electricity bill?: No Do you have trouble taking care of your child, family member or friend?: No Do you have trouble with day-to-day activities such as bathing, preparing meals, shopping, managing finances, etc.?: No Are you currently unemployed and looking for a job?: No Are you interested in more education?: No Please select the resources that you would like help with: None Currently or been in a relationship where the following occur: no concerns reported THRIVE Score: 0 AUDIT C Alcohol Use Questionnaire (AUDIT-C) 1. How often do you have a drink containing alcohol?: 2-3 times a week 2. How many drinks containing alcohol do you have on a typical day when you are drinking?: 1 or 2 3. How often do you have six or more drinks on one occasion?: Never Total Score: 3 MARCO ANTONIO-7 AMB Questionnaire MARCO ANTONIO-7 Date MARCO ANTONIO - 7 assessed: 10/18/23 Feeling nervous, anxious, or on edge: 0 = Not at all Not being able to stop or control worryin = Not at all Worrying too much about different things: 0 = Not at all Trouble relaxin = Not at all Being so restless that it is hard to sit still: 0 = Not at all Becoming easily annoyed or irritable: 0 = Not at all Feeling afraid as if something awful might happen: 0 = Not at all Total MARCO ANTONIO-7 score (0-4 normal; 5-9 mild; 10-14 moderate; 15-21 severe): 0 Source: Developed by Drs. Harshil Giron, Mira Conrad, Andres Luke and colleagues, with an educational lily from [employer]. Review of Systems Const All systems reviewed & are unremarkable except as noted in HPI and below Reports no additional complaints Eyes Reports no additional complaints ENT Reports no additional complaints Card Reports no additional complaints Resp Reports no additional complaints GI Reports no additional complaints Reports no additional complaints Physical exam (Primary Care) Vital Signs: Last Vital Signs Pulse 81 10/18/23 12:36 BP 110/64 10/18/23 12:36 Pulse Ox 99 10/18/23 12:36 Oxygen Delivery Method Room Air 10/18/23 12:36 BMI result Body Mass Index 25.9 Tobacco/Smoking Status: Tobacco use Status Tobacco use date assessed 10/18/23 10/18/23 12:41 Patient Tobacco Use Status Current everyday Tobacco 10/18/23 12:36 Tobacco use type Cigarette 10/18/23 12:36 e-Cigarette/Vaping Use Never Used 10/18/23 12:36 Depression Screening Interpretation: Negative Thrive Assessment: Date of Thrive Assessment Date Thrive assessed 07/06/23 10/18/23 12:36 Currently or been in a relationship where the following occur: no concerns reported Const General: no acute distress HENMT Face and sinus: Yes normal facial exam Neck Neck: Yes supple Resp Effort & Inspection: normal respiratory effort Auscultation: clear to auscultation bilaterally Cardio Rhythm: regular rhythm Heart sounds: S1 normal heart sound present and S2 normal heart sound present Assessment and Plan Assessment & Plan (1) HTN (hypertension): Code(s): I10 - Essential (primary) hypertension Plan: Continue med (2) COPD (chronic obstructive pulmonary disease): Comment: Intolerant to Spiriva Code(s): J44.9 - Chronic obstructive pulmonary disease, unspecified Plan: Patient was advised to use Symbicort least once a day and albuterol as needed. Tobacco quitting discussed with the patient. She will have allergy testing (3) Annual physical exam: Code(s): Z00.00 - Encounter for general adult medical examination without abnormal findings Plan: Refer for colonoscopy and mammogram Orders: Orders MM screening mammo BI Today Z12.31 - Encounter for screening mammogram for malignant neoplasm of breast Comprehensive [place]. Panel Fast 10 Months I10 - Essential (primary) hypertension, J44.9 - Chronic obstructive pulmonary disease, unspecified, Z00.00 - Encounter for general adult medical examination without abnormal findings Complete Blood Count Auto Diff 10 Months I10 - Essential (primary) hypertension, J44.9 - Chronic obstructive pulmonary disease, unspecified, Z00.00 - Encounter for general adult medical examination without abnormal findings TSH reflex Free T4 10 Months I10 - Essential (primary) hypertension, J44.9 - Chronic obstructive pulmonary disease, unspecified, Z00.00 - Encounter for general adult medical examination without abnormal findings Lipid Panel 10 Months I10 - Essential (primary) hypertension, J44.9 - Chronic obstructive pulmonary disease, unspecified, Z00.00 - Encounter for general adult medical examination without abnormal findings Referrals Gastroenterology Referral Z00.00 - Encounter for general adult medical examination without abnormal findings Coding Level of Care Code Est Pt Level 3 (73700) Diagnoses HTN (hypertension) I10 COPD (chronic obstructive pulmonary disease) J44.9 Annual physical exam Z00.00
[2023-10-18 12:36] VITALS: BP 110/64; PULSE 81; O2SAT 99; BMI 25.9
== END 2023-10-18 13:16 | disposition home or self-care (01) ==
PROVIDERS: PCP Internal Medicine; Visit Provider Internal Medicine
DX: I10 Essential (primary) hypertension (principal); J44.9 Chronic obstructive pulmonary disease, unspecified; Z00.00 Encounter for general adult medical examination without abnormal findings
CPT/HCPCS: 99213

== ENCOUNTER 2023-11-30 15:21 | Outpatient (REF) | payer OTHER, SELFPAY ==
--- NOTE | ~2023-11-30 | MM_ITS ---
EXAMINATION: MM SCREENING DIGITAL BREAST TOMOSYNTHESIS, BILATERAL CLINICAL INFORMATION: Screening. Asymptomatic. COMPARISON: Mammography: There are no prior mammograms for comparison. TECHNIQUE: Digital breast tomosynthesis is performed in both the craniocaudal and mediolateral oblique views along with computer-aided detection (CAD). Synthesized 2D images are generated from the tomosynthesis. FINDINGS: There are scattered areas of fibroglandular density (ACR BI-RADS breast composition Category b). There are no significant masses, abnormal calcifications, or other abnormalities. There is tissue marker in the upper inner quadrant of the right breast from prior percutaneous biopsy. MM/MM tomosynthesis screening BI IMPRESSION: No mammographic evidence of malignancy. ASSESSMENT: BI-RADS BI-RADS 2 - Benign Findings RECOMMENDATION: Routine annual mammography screening. 1 year F/U This examination should not preclude the clinical evaluation of a suspicious palpable abnormality. This patient's information was entered into a reminder system with a target due date for their next mammogram.
== END 2023-11-30 15:22 | disposition home or self-care (01) ==
LOC: HO.MAMMO 15:21
PROVIDERS: PCP Internal Medicine; Visit Provider Internal Medicine
DX: Z12.31 Encounter for screening mammogram for malignant neoplasm of breast (principal)
CPT/HCPCS: 77063; 77067

== ENCOUNTER → 2023-11-30 16:00 | Outpatient (BNV) | payer OTHER, SELFPAY | PROVIDERS: PCP Internal Medicine; Visit Provider Radiology Diagnostic Radiology | DX: Z12.31 Encounter for screening mammogram for malignant neoplasm of breast (principal) | CPT/HCPCS: 77063; 77067 ==

== ENCOUNTER 2023-12-10 08:11 | Outpatient (AMB) | payer OTHER, SELFPAY ==
--- NOTE | 2023-12-10 08:17 | A.OFFVIS_ITS ---
Intake Vital Signs 3 12/10/23 08:20 Height 4 ft 10 in Weight 123 lb 7.342 oz BMI 25.8 BP 134/82 Blood Pressure Location Lt brachial Position Sitting Pulse 90 Intake Visit Reasons: colonoscopy screening Intake Note: Maggie presents in the office as a colonoscopy screening. CC: She states that she has had one 10 years ago. Process Control Engineer Required: No Allergies spiriva Adverse Reaction (Intermediate, Uncoded 12/10/23 08:20) Chest Pain HPI colonoscopy screening 2 HPI0 Details Assessment & Plan (1) GERD (gastroesophageal reflux diseas e): ?Code(s): K21.9 - Gastro-esophageal reflux disease without esophagitis ?Category:?Medical ?Plan - GEORGE La: 9:50 no ans, mailbox full.? I had to dig into the chart to discover she has a cellphone that is not listed as her primary phone number and this is how I reached the patient eventually at 10:00 o'clock. She continues to do well on her cholestyramine with good control of her diarrhea.? She also continues on her omeprazole and she is quite happy to report this is controlling her acid reflux well.? She remains satisfied with her regimen. She is agreeable to a 6 month follow-up and will call me if she has any worsening symptoms. (2) Diarrhea: ?Code(s): R19.7 - Diarrhea, unspecified ?Category:?Medical TODAY'S VISIT PATIENT HAS BEEN LOST TO FOLLOW-UP SINCE 05/27/2021. She had a prior scope at [facility] with Dr Guzman that was negative except for TICS. Her COPD is well controlled and she denies any cardiac problems. There are no prior problems with anesthesia or sedation. There are no infectious disease problems. As above her prior colonoscopy was negative in this no known family history of colon cancer or polyps. [facility] Medical History Annual physical exam Diarrhea GERD (gastroesophageal reflux disease) Dysphagia Chronic anxiety COPD, mild Hemorrhoids Surgical History History of tubal ligation History of section Hx of tonsillectomy History of esophagogastroduodenoscopy (EGD) Hx of colonoscopy Hx of cholecystectomy Family History Father No problems noted. Mother No problems noted. Social History Housing: House Alcohol intake: current Alcohol intake frequency: 3 or more drinks per day Patient Tobacco Use Status: Current everyday Tobacco user Tobacco use type: Cigarette Cigarettes Per Day: 10 e-Cigarette/Vaping Use: Never Used service: No Current occupational status: employed Cognitive needs: No Hearing needs: No Vision needs: Yes Review of Systems Const Denies fatigue, Denies fever(s), Denies night sweats, Denies poor appetite and Denies weight loss Eyes Details: glasses Reports requires corrective lenses ENT Reports Normal hearing present, Denies dental pain, Denies dysphagia, Denies hearing loss, Denies mouth pain, Denies odynophagia, Denies throat swelling, Denies tongue swelling and Reports other (Dentition adequate) Card Reports no additional complaints Resp Reports no additional complaints GI Details: Denies abdominal pain, Denies melena, Denies bloating, Denies hematochezia, Denies constipation, Denies GI cramping, Denies dysphagia, Denies excessive flatus, Denies early satiety, Reports heartburn, Reports diarrhea, Denies nausea, Denies odynophagia, Denies vomiting and Denies hematemesis Skin/Breast Denies pruritus, Denies lesions, Denies rash and Denies jaundice Neuro Reports Normal hearing present and Denies Abnormal speech present Endo Denies fatigue Aller/Immun Denies throat swelling and Denies tongue swelling Physical Exam Vital Signs: Last Vital Signs Pulse 90 12/10/23 08:20 BP 134/82 12/10/23 08:20 BMI result Body Mass Index 25.8 Const General: cooperative, no acute distress, well developed and well groomed Nutritional Appearance: well nourished and obese centrally obese Orientation/consciousness: oriented to person, oriented to place and oriented to time Limitations: No language barrier HEENT Head: Yes normocephalic and Yes atraumatic Eyes General: appearance normal, both eyes and all related structures Pupils: Equal, round and reactive pupils present Neck Neck: Yes normal visual inspection and Yes no lymphadenopathy Thyroid: Thyroid normal Resp Effort & Inspection: normal respiratory effort and able to speak in complete sentences Auscultation: clear to auscultation bilaterally Cardio Rate: regular rate Rhythm: regular rhythm Heart sounds: Normal, physiologic split S2 sound present Peripheral pulses: radial pulses present and posterior tibial pulses present GI Inspection: No distended, Yes Abdominal panniculus present and Yes obesity Palpation (GI): Soft to palpation, nontender, no guarding, not rigid and No hepatosplenomegaly present Percussion: Yes normal to percussion Auscultation: normal bowel sounds Rectal Exam - Female: deferred Abdomen image: 2 1. surgical scar Skin General skin exam: no rashes or lesions noted, turgor normal, skin not dry, no jaundice, No spider nevi and no striae Rashes: no rashes Nails: normal Neuro General: oriented to person, oriented to place and oriented to time Cranial nerves: Yes Equal, round and reactive pupils present and Yes Normal hearing present Speech: No Abnormal speech present Extrem General: Yes normal to inspection, No clubbing, No cyanosis and No edema Psych Appearance: grossly normal and well kempt Mental Status: mental status grossly normal Speech and movement: Normal speech and movement present Affect: normal affect Attitude: cooperative Thought process: Normal thought process present and not confabulating Thought content: Normal thought content present Insight: Fair insight present (Psych) Judgement: Fair judgement present (Psych) Assessment & Plan Assessment & Plan (1) Post-cholecystectomy syndrome: Code(s): K91.5 - Postcholecystectomy syndrome (2) GERD (gastroesophageal reflux disease): Code(s): K21.9 - Gastro-esophageal reflux disease without esophagitis (3) Pre-op examination: Code(s): Z01.818 - Encounter for other preprocedural examination Plan PATIENT HAS BEEN LOST TO FOLLOW-UP SINCE 05/27/2021. She had a prior scope at [facility] with Dr Guzman that was negative except for TICS. Her COPD is well controlled and she denies any cardiac problems. There are no prior problems with anesthesia or sedation. There are no infectious disease problems. As above her prior colonoscopy was negative in this no known family history of colon cancer or polyps. Orders: Orders 2 Colonoscopy - GI Use Only 03/22/24 Z01.818 - Encounter for other preprocedural examination Comprehensive Met. Panel 12/10/23 Z01.818 - Encounter for other preprocedural examination Complete Blood Count Auto Diff 12/10/23 Z01.818 - Encounter for other preprocedural examination Medications: New 2 bisacodyl (Dulcolax (bisacodyl)) 10 mg (2 x 5 mg) PO BEDTIME 4 tabs 0RF 2 days peg 3350-electrolytes 236-22.74-6.74 -5.86 gram (Golytely) until fecal effluent is clear; do not exceed a total volume of 2,000 mL 240 mL PO Q10M 4,000 mL 0RF 1 day Z12.11 - Encounter for screening for malignant neoplasm of colon Coding Level of Care Code Est Pt Level 4 (59260) Diagnoses Post-cholecystectomy syndrome K91.5 GERD (gastroesophageal reflux disease) K21.9 Pre-op examination Z
[2023-12-10 08:20] VITALS: BP 134/82; PULSE 90; BMI 25.8
== END 2023-12-10 08:45 | disposition home or self-care (01) ==
PROVIDERS: PCP Internal Medicine; Visit Provider Nurse Practitioner
DX: K91.5 Postcholecystectomy syndrome (principal); K21.9 Gastro-esophageal reflux disease without esophagitis; Z01.818 Encounter for other preprocedural examination
CPT/HCPCS: 99214

== ENCOUNTER → 2023-12-10 08:11 | Outpatient (BNVA) | payer OTHER, SELFPAY | PROVIDERS: PCP Internal Medicine; Visit Provider Nurse Practitioner ==

== ENCOUNTER 2024-02-05 09:09 | Outpatient (AMB) | payer OTHER, SELFPAY ==
[2024-02-05 09:17] VITALS: BP 136/74; PULSE 73; TEMP 36.8; O2SAT 98; BMI 26.1
--- NOTE | 2024-02-05 09:17 | AM.OFFWIN_ITS ---
Intake Vital Signs 02/05/24 09:17 Height 4 ft 10 in Weight 125 lb BMI 26.1 BP 136/74 Blood Pressure Location Lt brachial Position Sitting Pulse 73 Pulse Source Pulse Oximeter Temp 98.3 F Temp Source Oral Pulse Oximetry (%) 98 Oxygen Delivery Method Room Air Intake Visit Reasons: EP RT wrist pain Intake Note: Pt is here today c/o Rt wrist pain no injury noted [id number] Patient Tobacco Use Status: Current everyday Tobacco user Allergies spiriva Adverse Reaction (Intermediate, Uncoded 02/05/24 09:18) Chest Pain HPI EP RT wrist pain HPI0 Details Patient is a 53-year-old female apparent right wrist pain for 2 weeks, to the thumb side, with underlying job duties that require repetitive use of the hands and wrists. She does have a history of some pain due to her job duties, and was supposed to be wearing wrist immobilizers at night, however when symptoms improved she stopped the use of the nighttime splinting. She reports starting back up just 2 days ago, but no daytime relief has been shown yet. She has not used anti-inflammatories. And no icing yet, or heating. She denies weakness, numbness or tingling PFSH Medical History Annual physical exam Diarrhea GERD (gastroesophageal reflux disease) Dysphagia Chronic anxiety COPD, mild Hemorrhoids Surgical History History of tubal ligation History of section Hx of tonsillectomy History of esophagogastroduodenoscopy (EGD) Hx of colonoscopy Hx of cholecystectomy Family History Father No problems noted. Mother No problems noted. Social History Housing: House Alcohol intake: current Alcohol intake frequency: 3 or more drinks per day Patient Tobacco Use Status: Current everyday Tobacco user Tobacco use type: Cigarette Cigarettes Per Day: 10 e-Cigarette/Vaping Use: Never Used service: No Current occupational status: employed Cognitive needs: No Hearing needs: No Vision needs: Yes Review of Systems Const All systems reviewed & are unremarkable except as noted in HPI and below Physical Exam Vital Signs: Last Vital Signs Temp 98.3 F 02/05/24 09:17 Pulse 73 02/05/24 09:17 BP 136/74 02/05/24 09:17 Pulse Ox 98 02/05/24 09:17 Oxygen Delivery Method Room Air 02/05/24 09:17 BMI result Body Mass Index 26.1 Extrem Other: Right wrist tender at the radial aspect/thumb, and increased with range of motion, which is decreased especially with pincer action of the thumb and with thumb extension, as well as ulnar deviation. She has a positive Julio's test. Neurovascularly intact distally Results Reviewed Results Reviewed: Wet read of right wrist x-ray today shows no acute osseous trauma, consistent with radiologist read. There is some enthesophytes visible Assessment & Plan Assessment & Plan (1) De Quervain's disease (tenosynovitis): Code(s): M65.4 - Radial styloid tenosynovitis [de Quervain] Plan Patient with likely repetitive use injury to the right wrist, which seems to be a de Quervain tenosynovitis at this time. Plain film x-ray done and shows no acute trauma. We discussed starting an anti-inflammatory and continuing with the splinting of the wrist, during the day also for now, at least until symptoms start to resolve. As this is likely work related, I advised she consider getting authorization from work to [facility]-up [facility], for which she has been seen there in the past for a similar issue. She might benefit from orthopedic referral if symptoms are not improving with the oral regimen and the splinting. She might also be considered for occupational therapy evaluation for a custom splint, and therapy. Orders: Orders XR wrist RT min 3V 02/05/24 M25.531 - Pain in right wrist Medications: New naproxen 500 mg PO BID 14 days PRN 28 tabs 0RF pain Coding Level of Care Code Est Pt Level 4 (64760) Diagnoses De Quervain's disease (tenosynovitis) M65.4
== END 2024-02-05 10:50 | disposition home or self-care (01) ==
PROVIDERS: PCP Internal Medicine; Visit Provider Physician Assistant Medical
DX: M65.4 Radial styloid tenosynovitis [de Quervain] (principal)
CPT/HCPCS: 99214

== ENCOUNTER 2024-02-05 09:53 | Outpatient (REF) | payer OTHER, SELFPAY ==
--- NOTE | ~2024-02-05 | XR_ITS ---
EXAMINATION: XR WRIST, RIGHT CLINICAL INFORMATION: Right wrist pain. COMPARISON: Right wrist radiograph dated 06/30/2023. TECHNIQUE: PA, lateral, oblique, and scaphoid views of the right wrist. FINDINGS: No acute fracture or dislocation. Normal carpal alignment. No joint space narrowing or marginal osteophytes. No osseous erosion. No abnormal soft tissue calcification. XR/XR wrist RT min 3V IMPRESSION: No acute osseous abnormality.
== END 2024-02-05 09:54 | disposition home or self-care (01) ==
LOC: HO.HMGCX 09:53
PROVIDERS: PCP Internal Medicine; Visit Provider Physician Assistant Medical
DX: M25.531 Pain in right wrist (principal)
CPT/HCPCS: 73110

== ENCOUNTER 2024-04-29 06:35 | Outpatient (REF) | payer OTHER, SELFPAY ==
[2024-04-29 11:01] LABS: MANUAL DIFF FLAG NO
[2024-04-29 11:05] LABS: Basophils Percent Auto 0.4 % (0-2); Eosinophils Absolute Auto 0.2 X10*3/uL (0.0-0.4); Eosinophils Percent Auto 2.8 % (0-4); Hematocrit 36.9 % (37.0-47.0); Hemoglobin 10.7 g/dl (12.0-16.0); Imm Gran Abs Auto 0.02 X10*3/uL (0.00-0.03); Imm Gran Pct Auto 0.3 % (0.0-0.4); Lymphocytes Absolute Auto 2.1 X10*3/uL (1.2-4.9); Lymphocytes Percent Auto 30.7 % (20-40); Mean Corpuscular Hemoglobin 20.7 pg (27.0-33.0); Mean Corpuscular Volume 71.2 fL (80.0-98.0); Mean Platelet Volume 10.6 fL (9.4-12.3); Monocytes Absolute Auto 0.8 X10*3/uL (0.1-1.2); Monocytes Percent Auto 12.4 % (2-11); Neutrophils Absolute Auto 3.6 x10*3/uL (2.0-8.3); Neutrophils Percent Auto 53.4 % (45-73); Platelet Count 307 X10*3/uL (160-400); Red Blood Count 5.18 X10*6/uL (4.20-5.50); Red Cell Distribution Width 18.4 % (11.0-16.0); White Blood Count 6.8 X10*3/uL (4.8-10.8)
[2024-04-29 11:18] LABS: Alanine Aminotransferase 13 U/L (0-31); Albumin Level 4.2 g/dL (3.5-5.0); Alkaline Phosphatase 78 U/L (39-117); Anion Gap 11 (12-20); Aspartate Amino Transferase 16 U/L (5-31); Bilirubin Total 0.3 mg/dL (0.0-1.0); Blood Urea Nitrogen 9 mg/dL (9-16); Calcium 8.9 mg/dL (8.4-10.2); Carbon Dioxide 23 mmol/L (22-29); Chloride 105 mmol/L (96-108); Cholesterol 138 mg/dL (<200); Estimated Glomerular Filt Rate > 60; Glucose Fasting 91 mg/dL (60-99); Glucose Random 91 mg/dL (60-115); HDL Cholesterol 44 mg/dL (>40); LDL Cholesterol Calculated 76 mg/dL (<100); Potassium 4.2 mmol/L (3.3-5.1); Sodium 135 mmol/L (135-145); Total Protein 6.5 g/dL (6.5-8.0); Triglycerides 93 mg/dL (<150)
[2024-04-29 11:42] LABS: TSH reflex Free T4 1.03 uIU/mL (0.32-4.0)
== END 2024-04-29 06:36 | disposition home or self-care (01) ==
LOC: HO.HMGCLDS 06:35
PROVIDERS: Nurse Practitioner; PCP Internal Medicine; Visit Provider Internal Medicine
DX: Z01.818 Encounter for other preprocedural examination (principal); I10 Essential (primary) hypertension; J44.9 Chronic obstructive pulmonary disease, unspecified
CPT/HCPCS: 36415; 80053; 80061; 84443; 85025

== ENCOUNTER 2024-06-02 07:30 | Day surgery (SDC) | payer OTHER, SELFPAY ==
--- NOTE | 2024-05-31 15:12 | HO.ANESPROP2 ---
HPI - Anesthesia Eval Consult details Narrative: 53yo F for Colonoscopy PMFSH Active Problems Active Problems: All Active Problems Pre-op examination (Acute) HTN (hypertension) (Acute) Environmental allergies (Acute) COPD (chronic obstructive pulmonary disease) (Acute) Cough (Acute) Annual physical exam (Acute) Upper respiratory tract infection (Acute) Acute bronchitis (Acute) Viral illness (Acute) Post-cholecystectomy syndrome (Acute) Hemorrhagic gastritis (Acute) Hemorrhoids (Acute) GERD (gastroesophageal reflux disease) (Acute) Right knee pain (Acute) Past Medical History Medical History HTN (hypertension) Annual physical exam Diarrhea GERD (gastroesophageal reflux disease) Dysphagia Chronic anxiety COPD, mild Hemorrhoids Family History Family History Father No problems noted. Mother No problems noted. Surgical History Surgical History History of tubal ligation History of section Hx of tonsillectomy History of esophagogastroduodenoscopy (EGD) Hx of colonoscopy Hx of cholecystectomy Social History Social History Housing: House Alcohol intake: current Alcohol intake frequency: 3 or more drinks per day Patient Tobacco Use Status: Current everyday Tobacco user Tobacco use type: Cigarette Cigarettes Per Day: 15 e-Cigarette/Vaping Use: Never Used service: No Current occupational status: employed Cognitive needs: No Hearing needs: No Vision needs: Yes Meds Allergies Allergy/AdvReac Type Severity Reaction Status Date / Time spiriva AdvReac Intermediate Chest Pain Uncoded 06/02/24 07:57 Assessment and Plan Assessment Anesthesia Assessment: Chart Reviewed
--- NOTE | 2024-06-02 07:21 | MHC.SHP ---
Pre-Procedural Eval Section A - 24 Hr Update-Section A only Date of Service: 06/02/24 The patient is an INPATIENT: No The patient has been examined within 24 hours of the surgical procedure. The History & Physical has been completed within 30 days and I have reviewed it.: No Section B - Complete if H&P > 30 days Chief Complaint: Colon cancer screening Relevant Family History (Specify if Yes): No Relevant Social History: Tobacco Use Present Medications: see Short Stay Collaborative assessment Medical History: Significant History (Diarrhea GERD (gastroesophageal reflux disease) Dysphagia Chronic anxiety COPD, mild Hemorrhoids) History of Previous Operations: Relevant previous surgery/procedure and date(s) (History of tubal ligation History of section Hx of tonsillectomy History of esophagogastroduodenoscopy (EGD) Hx of colonoscopy Hx of cholecystectomy) Allergies: Allergies Allergy/AdvReac Type Severity Reaction Status Date / Time spiriva AdvReac Intermediate Chest Pain Uncoded 02/05/24 09:18 Review of Systems Sugical H&P ROS: Negative: Constitution, Cardiovascular, Respiratory and Gastrointestinal Exam Surgical H&P Exam: Normal: Heart, Normal: Lungs, Normal: Extremities and Normal: Abdomen Plan Diagnosis/Plan: Unchanged I have reviewed the history and physical and performed a pertinent physical examination on my patient. No changes have occurred unless specified. Time Spent With Patient Time: Total time managing care of this patient today ____ minutes.
[2024-06-02 07:58] VITALS: BMI 24.9
[2024-06-02 08:07] VITALS: BP 136/90; PULSE 89; RESP 16; TEMP 36.7; O2SAT 96
[2024-06-02] MEDS: Lactated Ringers 1,000 ML 100 ML IVCONT (08:08)
--- NOTE | 2024-06-02 08:20 | P.CONAN_ITS ---
[facility] Active Problems Active Problems: All Active Problems Pre-op examination (Acute) HTN (hypertension) (Acute) Environmental allergies (Acute) COPD (chronic obstructive pulmonary disease) (Acute) Cough (Acute) Upper respiratory tract infection (Acute) Acute bronchitis (Acute) Viral illness (Acute) Post-cholecystectomy syndrome (Acute) Hemorrhagic gastritis (Acute) Right knee pain (Acute) Annual physical exam (Acute) Hemorrhoids (Acute) GERD (gastroesophageal reflux disease) (Acute) Past Medical History Medical History HTN (hypertension) Annual physical exam Diarrhea GERD (gastroesophageal reflux disease) Dysphagia Chronic anxiety COPD, mild Hemorrhoids Patient : No Family History Family History Father No problems noted. Mother No problems noted. Family history of problems with anesthesia: No Surgical History Surgical History History of tubal ligation History of section Hx of tonsillectomy History of esophagogastroduodenoscopy (EGD) Hx of colonoscopy Hx of cholecystectomy History of Problems with Anesthesia: No Social History Social History Housing: House Alcohol intake: current Alcohol intake frequency: 3 or more drinks per day Patient Tobacco Use Status: Current everyday Tobacco user Tobacco use type: Cigarette Cigarettes Per Day: 15 e-Cigarette/Vaping Use: Never Used Use of substances other than those prescribed or required for medical reasons: No Are you DNR?: No Advance Directives: No Advance Directives Information Provided: Yes service: No Current occupational status: employed Cognitive needs: No Hearing needs: No Vision needs: Yes Meds Allergies Allergy/AdvReac Type Severity Reaction Status Date / Time spiriva AdvReac Intermediate Chest Pain Uncoded 06/02/24 07:57 Active Medications: Current Medications Albuterol Sulfate (Albuterol Sulfate (0.083%) 2.5 Mg/3 Ml Vial.Neb) 2.5 mg INHALE ONCE PRN PRN Reason: Shortness of Breath/Wheezing Lactated Ringer's (Lr) 1,000 mls @ 100 mls/hr IVCONT .Q10H SHABNAM Last Admin: 06/02/24 08:08 Dose: 100 mls/hr Exam Height,Weight and Vital Signs: Height 4 ft 10 in Weight 53.977 kg Last Vital Signs Temp 98.1 F 06/02/24 08:07 Pulse 89 06/02/24 08:07 Resp 16 06/02/24 08:07 BP 136/90 H 06/02/24 08:07 Pulse Ox 96 06/02/24 08:07 O2 Del Method Room Air 06/02/24 08:07 Airway Mallampati Class: II TM Dist: >3cm Neck ROM: Full Heart: RRR Lungs: CTA Assessment and Plan Assessment Anesthesia Assessment: Anesthesia Plan Discussed and Chart Reviewed Final Anesthetic Review Family History of Problems with Anesthesia: No History of Problems with Anesthesia: No NPO: Yes ASA Class: II Final Preanesthetic Review: Meds/Allgs Chart Reviewed, Consent Obtained/Reviewed and Anes Risks/Benef Reviewed Patient Risk: Low Procedure Risk: Low Anesthetic Plan Anesthetic Plan: MAC: Disposition: Standard PACU
--- NOTE | 2024-06-02 09:02 | HO.OPN-COLON ---
Colonoscopy Operative Note Operative Note Date of Service: 06/02/24 Narrative: COLONOSCOPY TILL CECUM WITH BIOPSIES Pre-op diagnosis: Colon cancer screening (2nd colon). Post-op diagnosis:? colon polyp, Diverticulosis, hemorrhoids Endoscopist:? Miley Caraballo MD Anesthesia:?MAC Consent: Indications for the procedure and potential complications of bleeding, perforation, reaction to medications and missed diagnosis were discussed with the patient and informed consent was obtained. Instrument: Olympus PCF H 190 L variable stiffness pediatric colonoscope Monitoring: Vital signs and clinical assessment, intermittent blood pressure monitoring, continuous EKG monitoring, Pulse oximetry and Carbon Dioxide monitoring were done throughout the procedure. Please see anesthesia flowsheet. Colon withdrawl time was 18 minutes. Procedure: The patient was placed in the left lateral decubitis position and pre-procedure medications were administered. After a digital rectal examination of the ano-rectum, the video colonoscope was inserted into the rectum and advanced through the colon to the cecum. The colonoscope was slowly withdrawn in a retrograde panoramic fashion and the colon mucosa was carefully examined including a retroflexed view of the rectum. Findings and interventions are described below. Procedure Difficulty: without difficulty Findings: Terminal Ileum: Not evaluated Cecum: Normal Ascending Colon: A 2-3 mm sessile polyp - removed with a cold biopsy. Moderate diverticulosis throughout the entire colon Transverse Colon: Moderate diverticulosis throughout the entire colon Descending Colon: Moderate diverticulosis throughout the entire colon Sigmoid Colon: Severe diverticulosis with luminal narrowing Rectum: Normal Ano-rectum: Moderate internal hemorrhoids Colon preparation: Good after copious irrigation. [place] Bowel Preparation Scale Right colon; 2 Transverse colon: 2 Left colon; 2 (0 = Unprepared colon segment with mucosa not seen due to solid stool that cannot be cleared. 1 = Portion of mucosa of the colon segment seen, but other areas of the colon segment not well seen due to staining, residual stool and/or opaque liquid. 2 = Minor amount of residual staining, small fragments of stool and/or opaque liquid, but mucosa of colon segment seen well. 3 = Entire mucosa of colon segment seen well with no residual staining, small fragments of stool or opaque liquid) Impression and Post Procedure Diagnosis: Colonoscopy Findings: One small polyp was removed Random biopsies were obtained from right and left colon to check for microscopic colitis Moderate to severe diverticulosis seen in the entire colon Moderate hemorrhoids on retroflexed exam. Plan: Pt has a FU appointment on 06/13/24 with Hannah Avalos NP, Repeat Colonoscopy in 5 years if polyps are adenomatous and 10 year if polyps are hyperplastic. Above findings were reviewed with the patient and relevant handouts were given and the discharge area.
[2024-06-02 09:03] VITALS: BP 91/54; PULSE 92; RESP 16; TEMP 36.2; O2SAT 97
[2024-06-02 09:18] VITALS: BP 147/90; PULSE 81; RESP 16; TEMP 36.4; O2SAT 99
--- NOTE | 2024-06-02 13:25 | HO.POSTANES ---
Post Anesthesia Evaluation Post Anesthesia Evaluation Date of Service: 06/02/24 Vital Signs: Vital Signs Temp Pulse Resp BP Pulse Ox O2 Del Method 06/02/24 09:18 97.5 F 81 16 147/90 H 99 Room Air 06/02/24 09:03 97.1 F 92 16 91/54 L 97 Room Air 06/02/24 08:07 98.1 F 89 16 136/90 H 96 Room Air Anesthesia: Monitored Mental Status: Awake Pain Control: Satisfactory Nausea/Vomiting: None Hydration: Adequate Anesthesia-Related Issues: No Anes. Related Issues
== END 2024-06-02 09:50 | disposition home or self-care (01) ==
PROVIDERS: PCP Internal Medicine; Visit Provider Internal Medicine Gastroenterology
PROC: 0DJD8ZZ Inspection of Lower Intestinal Tract, Via Natural or Artificial Opening Endoscopic (ICD-10-PCS; CPT 45378; principal; 2024-06-02 08:30)
DX: Z12.11 Encounter for screening for malignant neoplasm of colon (principal); K63.5 Polyp of colon; K57.30 Diverticulosis of large intestine without perforation or abscess without bleeding; K64.8 Other hemorrhoids; K56.699 Other intestinal obstruction unspecified as to partial versus complete obstruction; I10 Essential (primary) hypertension; J44.9 Chronic obstructive pulmonary disease, unspecified; K91.5 Postcholecystectomy syndrome; K21.9 Gastro-esophageal reflux disease without esophagitis; F17.210 Nicotine dependence, cigarettes, uncomplicated; Z79.899 Other long term (current) drug therapy
CPT/HCPCS: 45380; 88305; J2704

== ENCOUNTER → 2024-06-02 07:30 | Outpatient (BNV) | payer OTHER, SELFPAY | PROVIDERS: PCP Internal Medicine; Visit Provider Internal Medicine Gastroenterology | DX: Z12.11 Encounter for screening for malignant neoplasm of colon (principal); D12.2 Benign neoplasm of ascending colon; K57.90 Diverticulosis of intestine, part unspecified, without perforation or abscess without bleeding; K64.8 Other hemorrhoids | CPT/HCPCS: 45380 ==

== ENCOUNTER 2024-06-13 08:52 | Outpatient (AMB) | payer OTHER, SELFPAY ==
[2024-06-13 09:02] VITALS: BP 121/68; BMI 25.6
--- NOTE | 2024-06-13 09:02 | A.OFFVIS_ITS ---
Vital Signs 06/13/24 09:02 Height 4 ft 10 in Weight 122 lb 9.232 oz BMI 25.6 BP 121/68 Blood Pressure Location Lt brachial Position Sitting Intake Visit Reasons: s/p colonoscopy Intake Note: Maggie presents in follow up s/p colonoscopy. CC: Patient reports doing well and denies having any GI symptoms today. 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 She had a prior scope at [facility] with Dr Guzman that was negative except for TICS. Her COPD is well controlled and she denies any cardiac problems. There are no prior problems with anesthesia or sedation. There are no infectious disease problems. As above her prior colonoscopy was negative in this no known family history of colon cancer or polyps. Orders: Orders Colonoscopy - GI Use Only 12/10/23 Z01.818 - Encounter for other preprocedural examination Comprehensive Met. Panel 12/10/23 Z01.818 - Encounter for other preprocedural examination Complete Blood Count Auto Diff 12/10/23 Z01.818 - Encounter for other preprocedural examination Medications: New bisacodyl (Dulcolax (bisacodyl)) 10 mg (2 x 5 mg) PO BEDTIME 4 tabs 0RF 2 days peg 3350-electrolytes 236-22.74-6.74 -5.86 gram (Golytely) until fecal effluent is clear; do not exceed a total volume of 2,000 mL 240 mL PO Q10M 4,000 mL 0RF 1 day Z12.11 - Encounter for screening for malignant neoplasm of colon LABS: Laboratory Tests 04/29/24 06:39 WBC 6.8 Hgb 10.7 L Hct 36.9 L MCV 71.2 L MCH 20.7 L MCHC 29.0 L Plt Count 307 D Estimated GFR > 60 Total Bilirubin 0.3 AST 16 ALT 13 Alkaline Phosphatase 78 TSH 1.03 COLONOSCOPY 06/02/24 Findings: Terminal Ileum: Not evaluated Cecum: Normal Ascending Colon: A 2-3 mm sessile polyp - removed with a cold biopsy. Moderate diverticulosis throughout the entire colon Transverse Colon: Moderate diverticulosis throughout the entire colon Descending Colon: Moderate diverticulosis throughout the entire colon Sigmoid Colon: Severe diverticulosis with luminal narrowing Rectum: Normal Ano-rectum: Moderate internal hemorrhoids Impression and Post Procedure Diagnosis: Colonoscopy Findings: One small polyp was removed Random biopsies were obtained from right and left colon to check for microscopic colitis Moderate to severe diverticulosis seen in the entire colon Moderate hemorrhoids on retroflexed exam. Plan: Pt has a FU appointment on 06/13/24 with Hannah Avalos NP, Repeat Colonoscopy in 5 years if polyps are adenomatous and 10 year if polyps are hyperplastic. BIOPSY Received: 06/02/24 Diagnosis A. Colon, ascending polyp, biopsy: Clinically polypoid colonic mucosa noted; negative for a hyperplastic or neoplastic process. B. Colon, right, biopsy: Colonic mucosa within normal limits; negative for active, chronic or microscopic colitis. C. Colon, left, biopsy: Colonic mucosa within normal limits; negative for active, chronic or microscopic colitis TODAY'S VISIT The procedure should be repeated in 10 years. The procedure was well tolerated. The results were explained and the patient is agreeable to the follow-up interval as stated. The bowel pattern has returned to normal. Education was provided to tell any 1st degree relatives about their findings to be sure that they are screened by age 45. Educated that they will be put on a recall list when it is time for their repeat scope but should they move out of state or away from the hospital they will need to remember along with their primary to repeat the procedure in a timely fashion to avoid any adverse complications. [facility] Medical History HTN (hypertension) Annual physical exam Diarrhea GERD (gastroesophageal reflux disease) Dysphagia Chronic anxiety COPD, mild Hemorrhoids Surgical History (Updated 06/13/24 @ 09:13 by GEORGE La) History of tubal ligation History of section Hx of tonsillectomy History of esophagogastroduodenoscopy (EGD) Hx of colonoscopy Hx of cholecystectomy Family History Father No problems noted. Mother No problems noted. Social History Housing: House Alcohol intake: current Alcohol intake frequency: 3 or more drinks per day Patient Tobacco Use Status: Current everyday Tobacco user Tobacco use type: Cigarette Cigarettes Per Day: 15 e-Cigarette/Vaping Use: Never Used service: No Current occupational status: employed Cognitive needs: No Hearing needs: No Vision needs: Yes Review of Systems Const Denies fatigue, Denies fever(s), Denies night sweats, Denies poor appetite and Denies weight loss Eyes Details: glasses Reports requires corrective lenses ENT Reports Normal hearing present, Denies dental pain, Denies dysphagia, Denies hearing loss, Denies mouth pain, Denies odynophagia, Denies throat swelling, Denies tongue swelling and Reports other (Dentition adequate) GI Details: Denies abdominal pain, Denies melena, Denies bloating, Denies hematochezia, Denies constipation, Denies GI cramping, Denies dysphagia, Denies excessive flatus, Denies early satiety, Denies heartburn, Denies diarrhea, Denies nausea, Denies odynophagia, Denies vomiting and Denies hematemesis Skin/Breast Denies pruritus, Denies lesions, Denies rash and Denies jaundice Neuro Reports Normal hearing present and Denies Abnormal speech present Endo Denies fatigue Aller/Immun Denies throat swelling and Denies tongue swelling Physical Exam Vital Signs: Last Vital Signs BP 121/68 06/13/24 09:02 BMI result Body Mass Index 25.6 Const General: cooperative, no acute distress, well developed and well groomed Nutritional Appearance: average body habitus and well nourished Orientation/consciousness: oriented to person, oriented to place and oriented to time Limitations: No language barrier HEENT Head: Yes normocephalic and Yes atraumatic Eyes General: appearance normal, both eyes and all related structures Pupils: Equal, round and reactive pupils present Neck Neck: Yes normal visual inspection and Yes no lymphadenopathy Thyroid: Thyroid normal Resp Effort & Inspection: normal respiratory effort and able to speak in complete sentences Auscultation: clear to auscultation bilaterally Cardio Rate: regular rate Rhythm: regular rhythm Heart sounds: Normal, physiologic split S2 sound present Peripheral pulses: radial pulses present and posterior tibial pulses present GI Inspection: No distended and No Abdominal panniculus present Palpation (GI): Soft to palpation, nontender, no guarding, not rigid and No hepatosplenomegaly present Percussion: Yes normal to percussion Auscultation: normal bowel sounds Rectal Exam - Female: deferred Skin General skin exam: no rashes or lesions noted, turgor normal, skin not dry, no jaundice, No spider nevi and no striae Rashes: no rashes Nails: normal Neuro General: oriented to person, oriented to place and oriented to time Cranial nerves: Yes Equal, round and reactive pupils present and Yes Normal hearing present Speech: No Abnormal speech present Extrem General: Yes normal to inspection, No clubbing, No cyanosis and No edema Psych Appearance: grossly normal and well kempt Mental Status: mental status grossly normal Speech and movement: Normal speech and movement present Affect: normal affect Attitude: cooperative Thought process: Normal thought process present and not confabulating Thought content: Normal thought content present Insight: Good insight present (Psych) Judgement: Good judgement present (Psych) Assessment & Plan Assessment & Plan (1) Hx of colonoscopy: Comment: 04/2024 scope= negative study polyps were not adenomas repeat in 10 years Code(s): Z98.890 - Other specified postprocedural states Category: Surgical Plan The procedure should be repeated in 10 years. The procedure was well tolerated. The results were explained and the patient is agreeable to the follow-up interval as stated. The bowel pattern has returned to normal. Education was provided to tell any 1st degree relatives about their findings to be sure that they are screened by age 45. Educated that they will be put on a recall list when it is time for their repeat scope but should they move out of state or away from the hospital they will need to remember along with their primary to repeat the procedure in a timely fashion to avoid any adverse complication Coding Level of Care Code Est Pt Level 3 (38126) Diagnoses Hx of colonoscopy Z98.890
== END 2024-06-13 09:16 | disposition home or self-care (01) ==
PROVIDERS: PCP Internal Medicine; Visit Provider Nurse Practitioner
DX: Z98.890 Other specified postprocedural states (principal)
CPT/HCPCS: 99213

== ENCOUNTER → 2024-06-13 08:52 | Outpatient (BNVA) | payer OTHER, SELFPAY | PROVIDERS: PCP Internal Medicine; Visit Provider Nurse Practitioner ==

== ENCOUNTER 2024-07-19 11:26 | Outpatient (AMB) | payer OTHER, SELFPAY ==
[2024-07-19 11:27] VITALS: BP 108/64; PULSE 69; O2SAT 97; BMI 25.5
--- NOTE | 2024-07-19 11:27 | MHC.PC.OV ---
Vital Signs 07/19/24 11:27 Height 4 ft 10 in Weight 122 lb BMI 25.5 BP 108/64 Blood Pressure Location Lt brachial Position Sitting Pulse 69 Pulse Source Pulse Oximeter Pulse Oximetry (%) 97 Oxygen Delivery Method Room Air Intake Visit Reasons: Annual PE Intake Note: Pt is here today for PE. Allergies spiriva Adverse Reaction (Intermediate, Uncoded 07/19/24 11:30) Chest Pain Medication List - Last Reconciled 07/19/24 by Agatha Cosme MD albuterol sulfate 2.5 mg (3 mL) inhalation Q4-6H PRN budesonide-formoterol 80-4.5 mcg/actuation (Symbicort) 2 puffs inhalation BID metoprolol succinate ER 50 mg PO DAILY naproxen 500 mg PO BID PRN 14 days Tobacco use date assessed: 07/19/24 Dental Screening Dental Screen Date: 07/19/24 Did you have a dental visit in the last 12 months?: No Did you have a dental problem in the last 6 months where you did not have access to dental care?: No Was dental information given to patient?: Patient declined HPI Annual PE HPI Details Patient presents for physical. She complains of sinus congestion postnasal drip productive cough with yellow sputum for 1 week. She denies pleurisy fever chills. FORMERLY [facility], [facility] Medical History (Updated 07/19/24 @ 12:20 by Agatha Cosme MD) HTN (hypertension) Annual physical exam Diarrhea GERD (gastroesophageal reflux disease) Dysphagia Chronic anxiety COPD, mild Hemorrhoids Surgical History (Updated 06/13/24 @ 09:13 by GEORGE La) History of tubal ligation History of section Hx of tonsillectomy History of esophagogastroduodenoscopy (EGD) Hx of colonoscopy Hx of cholecystectomy Family History Father No problems noted. Mother No problems noted. Social History Housing: House Alcohol intake: current Alcohol intake frequency: 3 or more drinks per day Patient Tobacco Use Status: Current everyday Tobacco user Tobacco use type: Cigarette Cigarettes Per Day: 15 e-Cigarette/Vaping Use: Never Used service: No Current occupational status: employed Cognitive needs: No Hearing needs: No Vision needs: Yes Questionnaire PHQ-9 Over the last 2 weeks, how often have you been bothered by any of the following problems? 1. Little interest or pleasure in doing things: not at all 2. Feeling down, depressed, or hopeless: not at all 3. Trouble falling or staying asleep, or sleeping too much: not at all 4. Feeling tired or having little energy: nearly every day 5. Poor appetite or overeating: not at all 6. Feeling bad about yourself - or that you are a failure or have let yourself or your family down: not at all 7. Trouble concentrating on things, such as reading the newspaper or watching television: not at all 8. Moving or speaking so slowly that other people could have noticed. Or the opposite - being so fidgety or restless that you have been moving around a lot more than usual: not at all 9. Thoughts that you would be better off or of hurting yourself in some way: not at all Total score: 3 Depression Screening Interpretation: Negative Depression Screening Done: Yes 53677 - PHQ-9 Billing: Yes Source: Developed by Drs. Harshil Giron, Mira Conrad, Andres Luke and colleagues, with an educational lily from [employer]. Thrive Questionnaire Date Thrive assessed: 07/19/24 I am a: Patient What is your living situation today?: I have a steady place to live Within the past 12 months, did the food you bought not last and you didn't have the money to get more?: Never true Within the past 12 months, did you worry whether your food would run out before you got money to buy more?: Never true Do you have trouble paying for medicines?: No Do you have trouble getting transportation to medical appointments?: No Do you have trouble paying your heating and electricity bill?: No Do you have trouble taking care of your child, family member or friend?: No Do you have trouble with day-to-day activities such as bathing, preparing meals, shopping, managing finances, etc.?: No Are you currently unemployed and looking for a job?: No Are you interested in more education?: No Please select the resources that you would like help with: None Currently or been in a relationship where the following occur: No concerns reported THRIVE Score: 0 AUDIT C Alcohol Use Questionnaire (AUDIT-C) 1. How often do you have a drink containing alcohol?: 4 or more times a week 2. How many drinks containing alcohol do you have on a typical day when you are drinking?: 1 or 2 3. How often do you have six or more drinks on one occasion?: Weekly Total Score: 7 MARCO ANTONIO-7 AMB Questionnaire MARCO ANTONIO-7 Date MARCO ANTONIO - 7 assessed: 07/19/24 Feeling nervous, anxious, or on edge: 0 = Not at all Not being able to stop or control worryin = Not at all Worrying too much about different things: 0 = Not at all Trouble relaxin = Nearly every day Being so restless that it is hard to sit still: 3 = Nearly every day Becoming easily annoyed or irritable: 3 = Nearly every day Feeling afraid as if something awful might happen: 0 = Not at all Total MARCO ANTONIO-7 score (0-4 normal; 5-9 mild; 10-14 moderate; 15-21 severe): 9 Source: Developed by Drs. Harshil Giron, Mira Conrad, Andres Luke and colleagues, with an educational lily from [employer]. MARCO ANTONIO-7 Assessment Billing MARCO ANTONIO-7 Assessment Tool: MARCO ANTONIO-7 Assessment 21891 Review of Systems Const All systems reviewed & are unremarkable except as noted in HPI and below Eyes Reports no additional complaints ENT Reports no additional complaints Card Reports no additional complaints Resp Reports no additional complaints GI Reports no additional complaints Reports no additional complaints Physical exam (Primary Care) Vital Signs: Last Vital Signs Pulse 69 07/19/24 11:27 BP 108/64 07/19/24 11:27 Pulse Ox 97 07/19/24 11:27 Oxygen Delivery Method Room Air 07/19/24 11:27 BMI result Body Mass Index 25.5 Tobacco/Smoking Status: Tobacco use Status Tobacco use date assessed 07/19/24 07/19/24 11:33 Patient Tobacco Use Status Current everyday Tobacco 07/19/24 11:33 Tobacco use type Cigarette 07/19/24 11:33 e-Cigarette/Vaping Use Never Used 07/19/24 11:33 PHQ-9: PHQ-9 Score PHQ-9: Total score 3 07/19/24 11:33 Depression Screening Interpretation: Negative Thrive Assessment: Date of Thrive Assessment Date Thrive assessed 07/19/24 07/19/24 11:33 Currently or been in a relationship where the following occur: No concerns reported Const General: no acute distress HENMT Head: Yes normal to inspection Ears: TM's normal bilaterally Face and sinus: Yes normal facial exam and Yes sinus tenderness Throat: Yes postnasal drainage Eyes General: appearance normal, both eyes and all related structures Neck Neck: Yes no lymphadenopathy and Yes supple Resp Effort & Inspection: normal respiratory effort Auscultation: diminished lung sounds Cardio Rhythm: regular rhythm Heart sounds: S1 normal heart sound present and S2 normal heart sound present GI Inspection: Yes normal to inspection Palpation (GI): Soft to palpation Percussion: Yes normal to percussion Auscultation: normal bowel sounds Coding Level of Care Code Est Pt Prev Care 40-64y(86615) Diagnoses HTN (hypertension) I10 COPD (chronic obstructive pulmonary disease) J44.9 Annual physical exam Z00.00 Sinusitis J32.9 Additional Codes MARCO ANTONIO-7 Assessment Billing - MARCO ANTONIO-7 Assessment Tool: MARCO ANTONIO-7 Assessment 96868 ([id number]) Assessment & Plan Assessment & Plan (1) HTN (hypertension): Code(s): I10 - Essential (primary) hypertension Category: Medical Plan: cont Metoprolol (2) COPD (chronic obstructive pulmonary disease): Comment: Intolerant to Spiriva Code(s): J44.9 - Chronic obstructive pulmonary disease, unspecified Category: Medical Plan: Continue Symbicort, tobacco quitting discussed with the patient patient like to try Chantix (3) Annual physical exam: Code(s): Z00.00 - Encounter for general adult medical examination without abnormal findings Category: Medical Plan: Well-balanced diet regular exercise discussed with the patient she is up-to-date with the mammogram colonoscopy. (4) Sinusitis: Code(s): J32.9 - Chronic sinusitis, unspecified Category: Medical Plan: Z-Braden is prescribed and supportive care discussed with the patient Orders: Orders Comprehensive [place]. Panel Fast 1 Year I10 - Essential (primary) hypertension, J44.9 - Chronic obstructive pulmonary disease, unspecified, Z00.00 - Encounter for general adult medical examination without abnormal findings Complete Blood Count Auto Diff 1 Year I10 - Essential (primary) hypertension, J44.9 - Chronic obstructive pulmonary disease, unspecified, Z00.00 - Encounter for general adult medical examination without abnormal findings Lipid Panel 1 Year I10 - Essential (primary) hypertension, J44.9 - Chronic obstructive pulmonary disease, unspecified, Z00.00 - Encounter for general adult medical examination without abnormal findings TSH reflex Free T4 1 Year I10 - Essential (primary) hypertension, J44.9 - Chronic obstructive pulmonary disease, unspecified, Z00.00 - Encounter for general adult medical examination without abnormal findings IRON PROFILE 1 Year I10 - Essential (primary) hypertension, J44.9 - Chronic obstructive pulmonary disease, unspecified, Z00.00 - Encounter for general adult medical examination without abnormal findings Medications: New azithromycin For 250 mg dose pack: take 500 mg today (day 1), then 250 mg for 4 days (days 2-5) PO 6 tabs 0RF azithromycin For 250 mg dose pack: take 500 mg today (day 1), then 250 mg for 4 days (days 2-5) PO 6 tabs 0RF benzonatate 100 mg PO BID-TID PRN 30 caps 0RF cough varenicline (Chantix Continuing Month Box) 1 mg PO BID 56 tabs 1RF benzonatate 100 mg PO BID-TID PRN 30 caps 0RF cough varenicline (Chantix Starting Month Box) PO PER PKG DIR 53 ea 0RF Refilled budesonide-formoterol 80-4.5 mcg/actuation (Symbicort) 2 puffs inhalation BID 10.2 grams 1RF metoprolol succinate ER 50 mg PO DAILY 90 tabs 3RF albuterol sulfate 2.5 mg (3 mL) inhalation Q4-6H PRN 180 mL 3RF shortness of breath or wheezing budesonide-formoterol 80-4.5 mcg/actuation (Symbicort) 2 puffs inhalation BID 10.2 grams 1RF albuterol sulfate 2.5 mg (3 mL) inhalation Q4-6H PRN 180 mL 3RF shortness of breath or wheezing
== END 2024-07-19 12:21 | disposition home or self-care (01) ==
LOC: HO.HMCC 11:26
PROVIDERS: PCP Internal Medicine; Visit Provider Internal Medicine
DX: I10 Essential (primary) hypertension (principal); J44.9 Chronic obstructive pulmonary disease, unspecified; Z00.00 Encounter for general adult medical examination without abnormal findings; J32.9 Chronic sinusitis, unspecified

== ENCOUNTER → 2024-07-19 11:26 | Outpatient (BNVA) | payer OTHER, SELFPAY | PROVIDERS: PCP Internal Medicine; Visit Provider Internal Medicine | DX: Z00.00 Encounter for general adult medical examination without abnormal findings (principal); I10 Essential (primary) hypertension; J44.9 Chronic obstructive pulmonary disease, unspecified; J32.9 Chronic sinusitis, unspecified | CPT/HCPCS: 96127 ==

== ENCOUNTER 2024-09-29 09:47 | Outpatient (AMB) | payer OTHER, SELFPAY ==
[2024-09-29 10:03] VITALS: BP 110/78; PULSE 112; TEMP 37.6; O2SAT 97
--- NOTE | 2024-09-29 10:03 | AM.OFFWIN_ITS ---
Intake Vital Signs 09/29/24 10:03 Weight 125 lb BP 110/78 Blood Pressure Location Rt brachial Position Sitting Pulse 112 H Pulse Source Pulse Oximeter Temp 99.6 F Temp Source Oral Pulse Oximetry (%) 97 Oxygen Delivery Method Room Air Intake Visit Reasons: EP head/ear ache, cough, no energy Intake Note: Patient here for cough, body aches, head ache, ear pain, no energy which started yesterday. Patient Tobacco Use Status: Current everyday Tobacco user Allergies spiriva Adverse Reaction (Intermediate, Uncoded 09/29/24 10:16) Chest Pain Do you need a note to return to daycare/school/sports/work: Yes HPI HPI Comments History of Present Illness Details History - The patient is a 54-year-old female pr esenting with acute respiratory infection. - Symptoms started abruptly yesterday wi th generalized body aches, a severe cough, chills, and headache. - There is no known history of asthma or COPD, although Symbicort is used twice daily. - Use of Symbicort has reportedly worsen ed coughing symptoms; patient cannot currently use a nebulizer due to equipment malfunction. - Previous similar condition managed wit h prednisone, but patient's dosage from prior episode not recalled. - There are currently no sick contacts k nown to have had similar symptoms, and the patient resides alone. - Ear discomfort experienced, but initia l assessments reveal no infection, just possible fluid presence. Physical Exam General: Cooperative, healthy appearing, comfortable and no acute distress Orientation/consciousness: Patient oriented x3 Limitations: No limitations Head: Normal to inspection Ears: Hearing grossly normal bilaterally, external ears normal and TM's normal bilaterally though scant fluit noted bilaterally Nose: Normal external nose present, Normal nares present and No nasal discharge present Face and sinus: Normal facial exam and Yes sinuses nontender Mouth: Normal oral and palatal mucosa present and moist mucous membranes Throat: Yes tonsils normal, Yes uvula midline. Posterior oropharynx erythema Eyes: Appearance normal, both eyes and all related structures Neck: Normal visual inspection Respiratory: Expiratory wheezing . Normal respiratory effort, able to speak in complete sentences, Actively coughing, no respiratory distress, not tachypneic, no tripod positioning and no use of accessory muscles, but wheezing present Cardiovascular: tachycardic rate and regular rhythm. Normal S1 and S2 Skin: No rashes or lesions noted Neuro: Patient oriented x3 Extremities: Normal to inspection and Yes no clubbing, cyanosis or edema PFSH Medical History (Updated 09/29/24 @ 10:44 by Tatyana Iglesias PA-C) HTN (hypertension) Annual physical exam Diarrhea GERD (gastroesophageal reflux disease) Dysphagia Chronic anxiety COPD, mild Hemorrhoids Surgical History (Updated 06/13/24 @ 09:13 by GEORGE La) History of tubal ligation History of section Hx of tonsillectomy History of esophagogastroduodenoscopy (EGD) Hx of colonoscopy Hx of cholecystectomy Family History Father No problems noted. Mother No problems noted. Social History Housing: House Alcohol intake: current Alcohol intake frequency: 3 or more drinks per day Patient Tobacco Use Status: Current everyday Tobacco user Tobacco use type: Cigarette Cigarettes Per Day: 15 e-Cigarette/Vaping Use: Never Used service: No Current occupational status: employed Cognitive needs: No Hearing needs: No Vision needs: Yes Review of Systems Const All systems reviewed & are unremarkable except as noted in HPI and below Physical Exam Vital Signs: Last Vital Signs Temp 99.6 F 09/29/24 10:03 Pulse 112 H 09/29/24 10:03 BP 110/78 09/29/24 10:03 Pulse Ox 97 09/29/24 10:03 Oxygen Delivery Method Room Air 09/29/24 10:03 Office Procedures Nebulizer Treatment Nebulizer Treatment 06129-Odyuihbkg/MDI RX initial, or Nebulizer Subsequent Treatment Office Meds ipratropium 0.5 mg-albuterol 3 mg (2.5 mg base)/3 mL nebulization soln Performing Provider: Tatyana Iglesias PA-C Performing Location: [facility] [place] [facility] Administered by: Tatyana Iglesias PA-C on 09/29/24 10:59 Dose Route Admin Location Dispensed Lot Number Expiration Date NDC [employer] 3 mL inhalation 3 mL [id number] 11/17/25 60870-627-24 [employer] Assessment & Plan Assessment & Plan (1) Lower respiratory infection (e.g., bronchitis, pneumonia, pneumonitis, pulmonitis): Code(s): J22 - Unspecified acute lower respiratory infection Plan: Elevated HR likely 2/2 fevers. The patient is assessed for an acute respiratory infection, with influenza-like symptoms, test for for viral causative agents, including flu, COVID-19 and RSV has been sent. A rescue inhaler and prednisone are prescribed to manage symptoms, alongside Tessalon Perles for nocturnal cough control. I have requested a new nebulizer machine through her primary care provider. Nebulizer treatment was given in office with improvement in wheezing upon auscultation. Management will continue based on diagnostic test results, and symptomatic relief measures will be emphasized. Ensuing viral test results will guide next steps in treatment to ensure complete recovery. Patient was informed and verbally consented to the use of an ambient scribe for clinic note documentation during this visit Orders: Orders SARS-CoV2/FLU/RSV Today J22 - Unspecified acute lower respiratory infection AMB Nebulizer Treatment Today J22 - Unspecified acute lower respiratory infection Medications: New albuterol sulfate 90 mcg/actuation 2 puffs inhalation Q6H PRN 8.5 grams 0RF shortness of breath or wheezing or cough prednisone 40 mg (2 x 20 mg) PO DAILY 10 tabs 0RF benzonatate 200 mg PO TID PRN 14 caps 0RF cough Coding Level of Care Code Est Pt Level 4 (26055) Diagnoses Lower respiratory infection (e.g., bronchitis, pneumonia, pneumonitis, pulmonitis) J22 CPT Codes Nebulizer Treatment - Nebulizer Treatment, initial or subsequent: 40071- Nebulizer/MDI RX initial, or Nebulizer Subsequent Treatment ([id number])
== END 2024-09-29 11:09 | disposition home or self-care (01) ==
PROVIDERS: PCP Internal Medicine; Visit Provider Physician Assistant
DX: J22 Unspecified acute lower respiratory infection (principal)

== ENCOUNTER 2024-10-02 13:37 | Outpatient (REF) | payer OTHER, SELFPAY ==
--- NOTE | ~2024-10-02 | XR_ITS ---
EXAMINATION: XR CHEST CLINICAL INFORMATION: J22 - Unspecified acute lower respiratory infection COMPARISON: X-ray dated July 24, 2023 TECHNIQUE: 2 views of the chest were obtained. FINDINGS: No consolidation, pleural effusion or pneumothorax. Cardiomediastinal silhouette is normal. Multilevel thoracic and upper lumbar spondylosis. Vascular clips in the right upper quadrant abdomen likely laparoscopic cholecystectomy. XR/XR chest 2V IMPRESSION: No acute airspace disease. Spondylosis, thoracolumbar spine. Electronically signed by: Rock Razo MD 10/02/2024 01:54 PM EST
== END 2024-10-02 13:38 | disposition home or self-care (01) ==
LOC: HO.HMGCX 13:37
PROVIDERS: PCP Internal Medicine; Visit Provider Nurse Practitioner Family
DX: J22 Unspecified acute lower respiratory infection (principal)
CPT/HCPCS: 71046

== ENCOUNTER → 2024-10-02 13:40 | Outpatient (BNV) | payer OTHER, SELFPAY | PROVIDERS: PCP Internal Medicine; Visit Provider Radiology Diagnostic Radiology | DX: J22 Unspecified acute lower respiratory infection (principal) | CPT/HCPCS: 71046 ==

== ENCOUNTER 2024-10-10 12:26 | Outpatient (AMB) | payer OTHER, SELFPAY ==
[2024-10-10 12:33] VITALS: BP 104/64; PULSE 78; O2SAT 100; BMI 25.7
--- NOTE | 2024-10-10 12:33 | A.OFFPC_ITS ---
Vital Signs 10/10/24 12:33 Height 4 ft 10 in Weight 123 lb BMI 25.7 BP 104/64 Blood Pressure Location Lt brachial Position Sitting Pulse 78 Pulse Source Pulse Oximeter Pulse Oximetry (%) 100 Oxygen Delivery Method Room Air Intake Visit Reasons: Flue Intake Note: Pt is here today for a sick visit. Pt c/o episodes of passing out. Pt states that she has flu 2 weeks ago. Pt states that she passed out yesterday too and has a cut on her head. Pt states that she finished her medications for the flu and still having the cough. Allergies spiriva Adverse Reaction (Intermediate, Uncoded 10/10/24 12:38) Chest Pain Medication List - Last Reconciled 10/10/24 by Agatha Cosme MD albuterol sulfate 2.5 mg (3 mL) inhalation Q4-6H PRN albuterol sulfate 90 mcg/actuation 2 puffs inhalation Q6H PRN budesonide 0.5 mg inhalation BID PRN budesonide-formoterol 80-4.5 mcg/actuation (Symbicort) 2 puffs inhalation BID metoprolol succinate ER 50 mg PO DAILY naproxen 500 mg PO BID PRN 14 days varenicline (Chantix Continuing Month Box) 1 mg PO BID varenicline (Chantix Starting Month Box) PO PER PKG DIR Tobacco use date assessed: 10/10/24 Dental Screening Dental Screen Date: 10/10/24 Did you have a dental visit in the last 12 months?: No Did you have a dental problem in the last 6 months where you did not have access to dental care?: No Was dental information given to patient?: Patient declined HPI Flue HPI Details Patient presents complaining of 2 weeks of productive cough wheezing shortness of breath low-grade fever body aches. She was diagnosed with influenza and was treated with Tamiflu and prednisone. She reports persistent productive cough and wheezing. She has been using albuterol every 6 hours was only temporary relief. She fell down 2 weeks ago and hit her head and possibly lost the consciousness. She developed numbness and tingling sensation in the left upper and left lower extremity 10 days ago but denies any extremity weakness, change in vision, headaches, difficulty swallowing or change in balance. [facility] Medical History (Updated 10/10/24 @ 13:18 by Agatha Cosme MD) HTN (hypertension) Annual physical exam Diarrhea GERD (gastroesophageal reflux disease) Dysphagia Chronic anxiety COPD, mild Hemorrhoids Surgical History (Updated 06/13/24 @ 09:13 by GEORGE La) History of tubal ligation History of section Hx of tonsillectomy History of esophagogastroduodenoscopy (EGD) Hx of colonoscopy Hx of cholecystectomy Family History Father No problems noted. Mother No problems noted. Social History Housing: House Alcohol intake: current Alcohol intake frequency: 3 or more drinks per day Patient Tobacco Use Status: Current everyday Tobacco user Tobacco use type: Cigarette Cigarettes Per Day: 15 e-Cigarette/Vaping Use: Never Used service: No Current occupational status: employed Cognitive needs: No Hearing needs: No Vision needs: Yes Questionnaire PHQ-9 Over the last 2 weeks, how often have you been bothered by any of the following problems? 1. Little interest or pleasure in doing things: more than half the days 2. Feeling down, depressed, or hopeless: not at all 3. Trouble falling or staying asleep, or sleeping too much: not at all 4. Feeling tired or having little energy: more than half the days 5. Poor appetite or overeating: not at all 6. Feeling bad about yourself - or that you are a failure or have let yourself or your family down: not at all 7. Trouble concentrating on things, such as reading the newspaper or watching television: not at all 8. Moving or speaking so slowly that other people could have noticed. Or the opposite - being so fidgety or restless that you have been moving around a lot more than usual: more than half the days 9. Thoughts that you would be better off or of hurting yourself in some way: not at all Total score: 6 Depression Screening Interpretation: Negative Depression Screening Done: Yes 11405 - PHQ-9 Billing: Yes Source: Developed by Drs. Harshil Giron, Miar Conrad, Andres Luke and colleagues, with an educational lily from [employer]. Thrive Questionnaire Date Thrive assessed: 07/19/24 I am a: Patient What is your living situation today?: I have a steady place to live Within the past 12 months, did the food you bought not last and you didn't have the money to get more?: Never true Within the past 12 months, did you worry whether your food would run out before you got money to buy more?: Never true Do you have trouble paying for medicines?: No Do you have trouble getting transportation to medical appointments?: No Do you have trouble paying your heating and electricity bill?: No Do you have trouble taking care of your child, family member or friend?: No Do you have trouble with day-to-day activities such as bathing, preparing meals, shopping, managing finances, etc.?: No Are you currently unemployed and looking for a job?: No Are you interested in more education?: No Please select the resources that you would like help with: None Currently or been in a relationship where the following occur: No concerns reported THRIVE Score: 0 AUDIT C Alcohol Use Questionnaire (AUDIT-C) 1. How often do you have a drink containing alcohol?: 2-4 times a month 2. How many drinks containing alcohol do you have on a typical day when you are drinking?: 1 or 2 3. How often do you have six or more drinks on one occasion?: Never Total Score: 2 MARCO ANTONIO-7 AMB Questionnaire MARCO ANTONIO-7 Date MARCO ANTONIO - 7 assessed: 07/19/24 Feeling nervous, anxious, or on edge: 0 = Not at all Not being able to stop or control worryin = Not at all Worrying too much about different things: 0 = Not at all Trouble relaxin = Not at all Being so restless that it is hard to sit still: 0 = Not at all Becoming easily annoyed or irritable: 0 = Not at all Feeling afraid as if something awful might happen: 0 = Not at all Total MARCO ANTONIO-7 score (0-4 normal; 5-9 mild; 10-14 moderate; 15-21 severe): 0 Source: Developed by Drs. Harshil Giron, Mira Conrad, Andres Luke and colleagues, with an educational lily from [employer] Review of Systems Const All systems reviewed & are unremarkable except as noted in HPI and below Eyes Reports no additional complaints ENT Reports no additional complaints Card Reports no additional complaints Resp Reports no additional complaints GI Reports no additional complaints Reports no additional complaints Physical exam (Primary Care) Vital Signs: Last Vital Signs Pulse 78 10/10/24 12:33 BP 104/64 10/10/24 12:33 Pulse Ox 100 10/10/24 12:33 Oxygen Delivery Method Room Air 10/10/24 12:33 BMI result Body Mass Index 25.7 Tobacco/Smoking Status: Tobacco use Status Tobacco use date assessed 10/10/24 10/10/24 12:40 Patient Tobacco Use Status Current everyday Tobacco 10/10/24 12:34 Tobacco use type Cigarette 10/10/24 12:34 e-Cigarette/Vaping Use Never Used 10/10/24 12:34 PHQ-9: PHQ-9 Score PHQ-9: Total score 6 10/10/24 12:34 Depression Screening Interpretation: Negative Thrive Assessment: Date of Thrive Assessment Date Thrive assessed 07/19/24 10/10/24 12:34 Currently or been in a relationship where the following occur: No concerns reported Const General: no acute distress HENMT Head: Yes normal to inspection Ears: TM's normal bilaterally Face and sinus: Yes normal facial exam Throat: Yes postnasal drainage Eyes General: appearance normal, both eyes and all related structures Neck Neck: Yes supple and Yes lymphadenopathy Resp Effort & Inspection: able to speak in complete sentences Auscultation: rhonchi and wheezes Cardio Rhythm: regular rhythm Heart sounds: S1 normal heart sound present and S2 normal heart sound present Neuro Cranial nerves: Yes CN's II-XII intact bilaterally Gait exam (Neuro): Normal gait present Motor exam (neuro): 5/5 motor strength present throughout Sensory Exam: Upper extremity sensory exam abnormal (Left hypersensitivity to pinprick testing) and Abnormal lower extremity sensory exam (Left hypersensitivity to pinprick) Extrem General: Yes no clubbing, cyanosis or edema Coding Level of Care Code Est Pt Level 4 (18728) Diagnoses CVA (cerebral vascular accident) I63.9 COPD (chronic obstructive pulmonary disease) J44.9 Additional Codes PHQ-9 - 95325 - PHQ-9 Billing: Yes ([id number]) Assessment & Plan Assessment & Plan (1) CVA (cerebral vascular accident): Comment: Left-sided upper and lower extremity numbness and tingling Code(s): I63.9 - Cerebral infarction, unspecified Category: Medical Plan: Obtain stat CT of the brain (2) COPD (chronic obstructive pulmonary disease): Comment: Intolerant to Spiriva Code(s): J44.9 - Chronic obstructive pulmonary disease, unspecified Category: Medical Plan: Prednisone taper and Z-Braden are prescribed, supportive care discussed with the patient, she will continue to use albuterol and Symbicort follow-up in 1 week Orders: Orders CT head/brain wo IV con Today I63.9 - Cerebral infarction, unspecified Medications: New prednisone FOUR TABLETS P.O. Q.D. FOR 3 DAYS THEN 3 TABLETS P.O. Q.D. FOR 3 DAYS THEN 2 TABLETS P.O. Q.D. FOR 3 DAYS THEN 1 TABLET P.O. Q.D. FOR 3 DAYS 10 mg PO DAILY 30 tabs 0RF azithromycin For 250 mg dose pack: take 500 mg today (day 1), then 250 mg for 4 days (days 2-5) PO 6 tabs 0RF
== END 2024-10-10 13:20 | disposition home or self-care (01) ==
PROVIDERS: PCP Internal Medicine; Visit Provider Internal Medicine
DX: I63.9 Cerebral infarction, unspecified (principal); J44.9 Chronic obstructive pulmonary disease, unspecified

== ENCOUNTER → 2024-10-10 12:26 | Outpatient (BNVA) | payer OTHER, SELFPAY | PROVIDERS: PCP Internal Medicine; Visit Provider Internal Medicine | DX: J44.9 Chronic obstructive pulmonary disease, unspecified (principal); I69.398 Other sequelae of cerebral infarction | CPT/HCPCS: 96127 ==

== ENCOUNTER 2024-10-11 16:10 | Outpatient (REF) | payer OTHER, SELFPAY ==
--- NOTE | ~2024-10-11 | CT_ITS ---
CLINICAL HISTORY: I63.9 - Cerebral infarction, unspecified CT of the head without contrast. No comparison. Findings: No acute hemorrhage or infarct is seen. No masses are identified and there is no hydrocephalus. There is no mass-effect. Impression: No acute intracranial abnormality is identified. This document has been electronically signed by: Vern Will MD on 10/11/2024 17:39:21
== END 2024-10-11 16:11 | disposition home or self-care (01) ==
LOC: HO.CT 16:10
PROVIDERS: PCP Internal Medicine; Visit Provider Internal Medicine
DX: I63.9 Cerebral infarction, unspecified (principal)
CPT/HCPCS: 70450

== ENCOUNTER → 2024-10-11 16:14 | Outpatient (BNV) | payer OTHER, SELFPAY | PROVIDERS: PCP Internal Medicine; Visit Provider Radiology Diagnostic Radiology | DX: I63.9 Cerebral infarction, unspecified (principal) | CPT/HCPCS: 70450 ==

== ENCOUNTER 2024-10-19 07:58 | Outpatient (AMB) | payer OTHER, SELFPAY ==
[2024-10-19 08:11] VITALS: BP 114/68; PULSE 90; RESP 18; TEMP 36.7; O2SAT 99; BMI 25.7
--- NOTE | 2024-10-19 08:11 | MHC.PC.OV ---
Vital Signs 10/19/24 08:11 Height 4 ft 10 in Weight 123 lb BMI 25.7 BP 114/68 Blood Pressure Location Lt brachial Position Sitting Respiration 18 Pulse 90 Pulse Source Pulse Oximeter Temp 98.1 F Temp Source Oral Pulse Oximetry (%) 99 Oxygen Delivery Method Room Air Intake Visit Reasons: 1wk follow up Intake Note: Pt is here today for 1 month follow up visit on cough. Allergies spiriva Adverse Reaction (Intermediate, Uncoded 10/19/24 08:13) Chest Pain Medication List - Last Reconciled 10/19/24 by Agatha Cosme MD albuterol sulfate 2.5 mg (3 mL) inhalation Q4-6H PRN albuterol sulfate 90 mcg/actuation 2 puffs inhalation Q6H PRN budesonide 0.5 mg inhalation BID PRN budesonide-formoterol 80-4.5 mcg/actuation (Symbicort) 2 puffs inhalation BID metoprolol succinate ER 50 mg PO DAILY naproxen 500 mg PO BID PRN 14 days prednisone 10 mg PO DAILY varenicline (Chantix Continuing Month Box) 1 mg PO BID varenicline (Chantix Starting Month Box) PO PER PKG DIR Tobacco use date assessed: 10/19/24 Dental Screening Dental Screen Date: 10/10/24 HPI 1wk follow up HPI Details Patient presents for the follow-up of COPD exacerbation. She is feeling better but still complains of productive cough and intermittent wheezing. Patient denies pleurisy fever chills. She completed course of Z-Braden and still taking prednisone taper. Patient has been taking Symbicort 80 mcg twice a day and using albuterol updraft at least once a day. [facility] Medical History (Updated 10/19/24 @ 09:39 by Agatha Cosme MD) HTN (hypertension) Annual physical exam Diarrhea GERD (gastroesophageal reflux disease) Dysphagia Chronic anxiety COPD, mild Hemorrhoids Surgical History History of tubal ligation History of section Hx of tonsillectomy History of esophagogastroduodenoscopy (EGD) Hx of colonoscopy Hx of cholecystectomy Family History Father No problems noted. Mother No problems noted. Social History Housing: House Alcohol intake: current Alcohol intake frequency: 3 or more drinks per day Patient Tobacco Use Status: Current everyday Tobacco user Tobacco use type: Cigarette Cigarettes Per Day: 15 e-Cigarette/Vaping Use: Never Used service: No Current occupational status: employed Cognitive needs: No Hearing needs: No Vision needs: Yes Questionnaire Thrive Questionnaire Date Thrive assessed: 10/10/24 I am a: Patient What is your living situation today?: I have a steady place to live Within the past 12 months, did the food you bought not last and you didn't have the money to get more?: Never true Within the past 12 months, did you worry whether your food would run out before you got money to buy more?: Never true Do you have trouble paying for medicines?: No Do you have trouble getting transportation to medical appointments?: No Do you have trouble paying your heating and electricity bill?: No Do you have trouble taking care of your child, family member or friend?: No Do you have trouble with day-to-day activities such as bathing, preparing meals, shopping, managing finances, etc.?: No Are you currently unemployed and looking for a job?: No Are you interested in more education?: No Please select the resources that you would like help with: None Currently or been in a relationship where the following occur: No concerns reported THRIVE Score: 0 MARCO ANTONIO-7 AMB Questionnaire MARCO ANTONIO-7 Date MARCO ANTONIO - 7 assessed: 07/19/24 Source: Developed by Drs. Harshil Giron, Mira Conrad, Andres Luke and colleagues, with an educational lily from [employer]. Review of Systems Const All systems reviewed & are unremarkable except as noted in HPI and below Eyes Reports no additional complaints ENT Reports no additional complaints Card Reports no additional complaints Resp Reports no additional complaints GI Reports no additional complaints Reports no additional complaints Physical exam (Primary Care) Vital Signs: Last Vital Signs Temp 98.1 F 10/19/24 08:11 Pulse 90 10/19/24 08:11 Resp 18 10/19/24 08:11 BP 114/68 10/19/24 08:11 Pulse Ox 99 10/19/24 08:11 Oxygen Delivery Method Room Air 10/19/24 08:11 BMI result Body Mass Index 25.7 Tobacco/Smoking Status: Tobacco use Status Tobacco use date assessed 10/19/24 10/19/24 08:17 Patient Tobacco Use Status Current everyday Tobacco 10/19/24 08:17 Tobacco use type Cigarette 10/19/24 08:17 e-Cigarette/Vaping Use Never Used 10/19/24 08:17 Thrive Assessment: Date of Thrive Assessment Date Thrive assessed 10/10/24 10/19/24 08:17 Currently or been in a relationship where the following occur: No concerns reported Const General: no acute distress HENMT Head: Yes normal to inspection Throat: Yes posterior oropharynx normal Neck Neck: Yes supple Resp Effort & Inspection: normal respiratory effort Auscultation: diminished lung sounds Cardio Rhythm: regular rhythm Heart sounds: S1 normal heart sound present and S2 normal heart sound present Coding Level of Care Code Est Pt Level 3 (59659) Diagnoses COPD (chronic obstructive pulmonary disease) J44.9 Assessment & Plan Assessment & Plan (1) COPD (chronic obstructive pulmonary disease): Comment: Intolerant to Spiriva Code(s): J44.9 - Chronic obstructive pulmonary disease, unspecified Category: Medical Plan: Doxycycline 100 mg twice a day for 7 days is prescribed Symbicort will be increased to 160 mcg the patient was advised to use albuterol updraft at least twice a day as needed follow-up in 2 weeks Medications: New budesonide-formoterol 160-4.5 mcg/actuation (Symbicort) 2 puffs inhalation BID 10.2 grams 2RF doxycycline hyclate 100 mg PO BID 14 tabs 0RF benzonatate 100 mg PO TID 30 caps 0RF
== END 2024-10-19 08:47 | disposition home or self-care (01) ==
PROVIDERS: PCP Internal Medicine; Visit Provider Internal Medicine
DX: J44.9 Chronic obstructive pulmonary disease, unspecified (principal)

== ENCOUNTER 2024-10-31 08:02 | Outpatient (AMB) | payer OTHER, SELFPAY ==
[2024-10-31 08:24] VITALS: BP 122/80; PULSE 88; TEMP 36.9; O2SAT 96; BMI 25.7
--- NOTE | 2024-10-31 08:24 | MHC.OFFWIV ---
Intake Vital Signs 10/31/24 08:24 Height 4 ft 10 in Weight 123 lb BMI 25.7 BP 122/80 Blood Pressure Location Rt brachial Position Sitting Pulse 88 Pulse Source Pulse Oximeter Temp 98.4 F Temp Source Oral Pulse Oximetry (%) 96 Intake Visit Reasons: EP head cold, ? sinus infection Patient Tobacco Use Status: Current everyday Tobacco user Allergies spiriva Adverse Reaction (Intermediate, Uncoded 10/31/24 08:25) Chest Pain Do you need a note to return to daycare/school/sports/work: Yes HPI HPI Comments History of Present Illness Details History The patient is a 54-year-old female presenting with cough and upper respiratory infection symptoms. - She has COPD, previously treated with increased Symbicort, ZPak, doxycycline, and albuterol nebulizer, with partial relief of symptoms for one day but they started back up 4 days ago. - Post-doxycycline treatment, she noted recurrence of symptoms with green nasal discharge and a persistent cough. - On September 29, a positive test for Influenza A. - Tessalon Perles provided symptom relief. - There have been no fever episodes confirmed, and nebulizer use exacerbated symptoms on some occasions. - Her last chest x-ray was conducted on October 02, and she expressed interest in pulmonology evaluation for ongoing management. - Denies headaches, ear pain but admits to some sinus fullness. Physical Exam General: Cooperative, healthy appearing, comfortable and no acute distress Orientation/consciousness: Patient oriented x3 Limitations: No limitations Head: Normal to inspection Ears: Hearing grossly normal bilaterally, external ears normal and TM's normal bilaterally Nose: Normal external nose present, Normal nares present and Green nasal discharge present Face and sinus: Normal facial exam and Yes sinuses nontender Mouth: Normal oral and palatal mucosa present and moist mucous membranes Throat: Yes tonsils normal, Yes uvula midline. Posterior oropharynx erythema Eyes: Appearance normal, both eyes and all related structures Neck: Normal visual inspection Respiratory: slight rhonchi on expiration, no wheezing. Normal respiratory effort, able to speak in complete sentences, Actively coughing, no respiratory distress, not tachypneic, no tripod positioning and no use of accessory muscles Cardiovascular: Regular rate and rhythm. Normal S1 and S2 Skin: No rashes or lesions noted Neuro: Patient oriented x3 Extremities: Normal to inspection and Yes no clubbing, cyanosis or edema PFSH Medical History (Updated 10/19/24 @ 09:39 by Agatha Cosme MD) HTN (hypertension) Annual physical exam Diarrhea GERD (gastroesophageal reflux disease) Dysphagia Chronic anxiety COPD, mild Hemorrhoids Surgical History History of tubal ligation History of section Hx of tonsillectomy History of esophagogastroduodenoscopy (EGD) Hx of colonoscopy Hx of cholecystectomy Family History Father No problems noted. Mother No problems noted. Social History Housing: House Alcohol intake: current Alcohol intake frequency: 3 or more drinks per day Patient Tobacco Use Status: Current everyday Tobacco user Tobacco use type: Cigarette Cigarettes Per Day: 15 e-Cigarette/Vaping Use: Never Used service: No Current occupational status: employed Cognitive needs: No Hearing needs: No Vision needs: Yes Review of Systems Const All systems reviewed & are unremarkable except as noted in HPI and below Physical Exam Vital Signs: Last Vital Signs Temp 98.4 F 10/31/24 08:24 Pulse 88 10/31/24 08:24 BP 122/80 10/31/24 08:24 Pulse Ox 96 10/31/24 08:24 BMI result Body Mass Index 25.7 Assessment & Plan Assessment & Plan (1) Lower respiratory infection (e.g., bronchitis, pneumonia, pneumonitis, pulmonitis): Code(s): J22 - Unspecified acute lower respiratory infection Plan: The patient may be facing a viral upper respiratory infection, with ongoing symptoms of cough and nasal discharge despite prior antibiotic treatments. Recent doxycycline and Z-Braden use suggests earlier bacterial considerations; however, further testing for viral pathogens like influenza, COVID-19, and RSV is warranted. If these are negative, Levaquin may be considered if bacterial involvement is suspected. A chest x-ray will rule out pneumonia as a precaution, despite clear lung sounds and normal oxygenation, aiming to address the unresolved respiratory symptoms. Prednisone is not prescribed to minimize unnecessary treatment unless warranted. Current COPD therapies, including an inhaler and nebulizer, continue alongside monitoring for symptom worsening. Patient was informed and verbally consented to the use of an ambient scribe for clinic note documentation during this visit Orders: Orders XR chest 2V Today R05.9 - Cough, unspecified SARS-CoV2/FLU/RSV Today J22 - Unspecified acute lower respiratory infection Medications: New prednisone 20 mg PO DAILY 5 tabs 0RF Coding Level of Care Code Est Pt Level 4 (50880) Diagnoses Lower respiratory infection (e.g., bronchitis, pneumonia, pneumonitis, pulmonitis) J22
== END 2024-10-31 09:00 | disposition home or self-care (01) ==
PROVIDERS: PCP Internal Medicine; Visit Provider Physician Assistant
DX: J22 Unspecified acute lower respiratory infection (principal)

== ENCOUNTER 2024-10-31 08:02 | Outpatient (REF) | payer OTHER, SELFPAY ==
[2024-10-31 11:00] LABS: Influenza A PCR NEGATIVE (Negative); Influenza B PCR NEGATIVE (Negative); Resp Syncy Virus RNA Qual PCR NEGATIVE (Negative); SARS COV2 PCR INHOUSE NEGATIVE (Negative)
== END 2024-10-31 08:03 | disposition home or self-care (01) ==
LOC: HO.LAB 08:02
PROVIDERS: PCP Internal Medicine; Visit Provider Physician Assistant
DX: J22 Unspecified acute lower respiratory infection (principal)
CPT/HCPCS: 0241U

== ENCOUNTER 2024-10-31 08:56 | Outpatient (REF) | payer OTHER, SELFPAY ==
--- NOTE | ~2024-10-31 | XR_ITS ---
EXAMINATION: XR CHEST CLINICAL INFORMATION: R05.9 - Cough, unspecified COMPARISON: None available. TECHNIQUE: 2 views of the chest were obtained. FINDINGS: Lungs are well-expanded and clear acute process. Heart size and poor vascularity is normal. There is moderate elevation of right hemidiaphragm. There are Peralta rods in the dorsal and lumbar spine as well as hardware at T10-11 disc level for fusion. XR/XR chest 2V IMPRESSION: No acute cardiopulmonary process seen. Electronically signed by: Shelton Gillette MD 10/31/2024 09:28 AM EST
== END 2024-10-31 08:57 | disposition home or self-care (01) ==
LOC: HO.HMGCX 08:56
PROVIDERS: PCP Internal Medicine; Visit Provider Physician Assistant
DX: R05.9 Cough, unspecified (principal)
CPT/HCPCS: 71046

== ENCOUNTER → 2024-10-31 08:59 | Outpatient (BNV) | payer OTHER, SELFPAY | PROVIDERS: PCP Internal Medicine; Visit Provider Radiology Diagnostic Radiology | DX: R05.9 Cough, unspecified (principal) | CPT/HCPCS: 71046 ==

== ENCOUNTER 2024-11-02 07:31 | Outpatient (REF) | payer OTHER, SELFPAY ==
[2024-11-02 10:15] LABS: MANUAL DIFF FLAG NO
[2024-11-02 10:25] LABS: Basophils Percent Auto 0.3 % (0-2); Eosinophils Absolute Auto 0.2 X10*3/uL (0.0-0.4); Eosinophils Percent Auto 2.2 % (0-4); Hematocrit 37.4 % (37.0-47.0); Hemoglobin 11.2 g/dl (12.0-16.0); Imm Gran Abs Auto 0.04 X10*3/uL (0.00-0.03); Imm Gran Pct Auto 0.5 % (0.0-0.4); Lymphocytes Absolute Auto 2.7 X10*3/uL (1.2-4.9); Lymphocytes Percent Auto 34.9 % (20-40); Mean Corpuscular HGB Conc 29.9 g/dl (31.0-35.0); Mean Corpuscular Hemoglobin 21.6 pg (27.0-33.0); Mean Corpuscular Volume 72.2 fL (80.0-98.0); Mean Platelet Volume 10.3 fL (9.4-12.3); Monocytes Absolute Auto 0.9 X10*3/uL (0.1-1.2); Monocytes Percent Auto 11.4 % (2-11); Neutrophils Absolute Auto 3.9 x10*3/uL (2.0-8.3); Neutrophils Percent Auto 50.7 % (45-73); Platelet Count 193 X10*3/uL (160-400); Red Blood Count 5.18 X10*6/uL (4.20-5.50); Red Cell Distribution Width 20.7 % (11.0-16.0); White Blood Count 7.7 X10*3/uL (4.8-10.8)
[2024-11-02 10:35] LABS: Alanine Aminotransferase 20 U/L (0-31); Albumin Level 4.1 g/dL (3.5-5.0); Alkaline Phosphatase 82 U/L (39-117); Anion Gap 14 (12-20); Aspartate Amino Transferase 29 U/L (5-31); Bilirubin Total 0.2 mg/dL (0.0-1.0); Blood Urea Nitrogen 7 mg/dL (9-16); Calcium 9.3 mg/dL (8.4-10.2); Carbon Dioxide 24 mmol/L (22-29); Chloride 104 mmol/L (96-108); Estimated Glomerular Filt Rate > 60; Glucose Random 118 mg/dL (60-115); Iron 14 mcg/dL (30-160); Percent Iron Saturation 4 % (15-50); Potassium 4.1 mmol/L (3.3-5.1); Sodium 138 mmol/L (135-145); Total Iron Binding Capacity 370 mcg/dL (228-428); Total Protein 7.1 g/dL (6.5-8.0); Unsaturated Iron Binding 356 ug/dL
== END 2024-11-02 07:32 | disposition home or self-care (01) ==
LOC: HO.HMGCLDS 07:31
PROVIDERS: PCP Internal Medicine; Visit Provider Internal Medicine
DX: R06.02 Shortness of breath (principal); D64.9 Anemia, unspecified; J98.6 Disorders of diaphragm
CPT/HCPCS: 36415; 80053; 83540; 85025

== ENCOUNTER 2024-11-08 09:20 | Outpatient (AMB) | payer OTHER, SELFPAY ==
[2024-11-08 09:40] VITALS: BP 110/68; PULSE 105; RESP 18; TEMP 36.8; O2SAT 99; BMI 25.7
--- NOTE | 2024-11-08 09:40 | MHC.PC.OV ---
Vital Signs 11/08/24 09:40 Height 4 ft 10 in Weight 123 lb BMI 25.7 BP 110/68 Blood Pressure Location Lt brachial Position Sitting Respiration 18 Pulse 105 H Pulse Source Pulse Oximeter Temp 98.2 F Temp Source Oral Pulse Oximetry (%) 99 Oxygen Delivery Method Room Air Intake Visit Reasons: 2 weeks f/up Intake Note: Pt is here today for a 2 weeks follow up on cough and SOB. Allergies spiriva Adverse Reaction (Intermediate, Uncoded 11/08/24 09:43) Chest Pain Medication List - Last Reconciled 11/08/24 by Agatha Cosme MD albuterol sulfate 2.5 mg (3 mL) inhalation Q4-6H PRN albuterol sulfate 90 mcg/actuation 2 puffs inhalation Q6H PRN benzonatate 100 mg PO TID budesonide 0.5 mg inhalation BID PRN fluticasone furoate-vilanterol 200-25 mcg/dose (Breo Ellipta) 1 inh inhalation DAILY metoprolol succinate ER 50 mg PO DAILY naproxen 500 mg PO BID PRN 14 days Tobacco use date assessed: 11/08/24 Dental Screening Dental Screen Date: 11/08/24 Did you have a dental visit in the last 12 months?: Yes Did you have a dental problem in the last 6 months where you did not have access to dental care?: No Was dental information given to patient?: Patient has dentist HPI 2 weeks f/up HPI Details Patient presents for a follow-up of persistent cough and chest tightness for 1 month. She took a course of Z-Braden, doxycycline and Levaquin and a prednisone taper with each treatment without significant improvement. Patient has been taking Symbicort 80/4.5 mg twice a day try using albuterol which made her cough more. She denies sputum production pleurisy chest pain palpitations fever chills night sweats. Patient had a chest x-ray last week which showed moderate elevation of right diaphragm but clear lungs. Patient continues to smoke up to 5 cigarettes a day [facility] Medical History (Updated 11/08/24 @ 10:43 by Agatha Cosme MD) HTN (hypertension) Annual physical exam Diarrhea GERD (gastroesophageal reflux disease) Dysphagia Chronic anxiety COPD, mild Hemorrhoids Surgical History History of tubal ligation History of section Hx of tonsillectomy History of esophagogastroduodenoscopy (EGD) Hx of colonoscopy Hx of cholecystectomy Family History Father No problems noted. Mother No problems noted. Social History Housing: House Alcohol intake: current Alcohol intake frequency: 3 or more drinks per day Patient Tobacco Use Status: Current everyday Tobacco user Tobacco use type: Cigarette Cigarettes Per Day: 15 e-Cigarette/Vaping Use: Never Used service: No Current occupational status: employed Cognitive needs: No Hearing needs: No Vision needs: Yes Questionnaire Thrive Questionnaire Date Thrive assessed: 10/10/24 I am a: Patient What is your living situation today?: I have a steady place to live Within the past 12 months, did the food you bought not last and you didn't have the money to get more?: Never true Within the past 12 months, did you worry whether your food would run out before you got money to buy more?: Never true Do you have trouble paying for medicines?: No Do you have trouble getting transportation to medical appointments?: No Do you have trouble paying your heating and electricity bill?: No Do you have trouble taking care of your child, family member or friend?: No Do you have trouble with day-to-day activities such as bathing, preparing meals, shopping, managing finances, etc.?: No Are you currently unemployed and looking for a job?: No Are you interested in more education?: No Please select the resources that you would like help with: None Currently or been in a relationship where the following occur: No concerns reported THRIVE Score: 0 MARCO ANTONIO-7 AMB Questionnaire MARCO ANTONIO-7 Date MARCO ANTONIO - 7 assessed: 07/19/24 Source: Developed by Drs. Harshil Giron, Mira Conrad, Andres Luke and colleagues, with an educational lily from [employer]. Review of Systems Const All systems reviewed & are unremarkable except as noted in HPI and below Eyes Reports no additional complaints ENT Reports no additional complaints Card Reports no additional complaints Resp Reports no additional complaints GI Reports no additional complaints Reports no additional complaints Physical exam (Primary Care) Vital Signs: Last Vital Signs Temp 98.2 F 11/08/24 09:40 Pulse 105 H 11/08/24 09:40 Resp 18 11/08/24 09:40 BP 110/68 11/08/24 09:40 Pulse Ox 99 11/08/24 09:40 Oxygen Delivery Method Room Air 11/08/24 09:40 BMI result Body Mass Index 25.7 Tobacco/Smoking Status: Tobacco use Status Tobacco use date assessed 11/08/24 11/08/24 09:43 Patient Tobacco Use Status Current everyday Tobacco 11/08/24 09:40 Tobacco use type Cigarette 11/08/24 09:40 e-Cigarette/Vaping Use Never Used 11/08/24 09:40 Thrive Assessment: Date of Thrive Assessment Date Thrive assessed 10/10/24 11/08/24 09:40 Currently or been in a relationship where the following occur: No concerns reported Const General: no acute distress HENMT Head: Yes normal to inspection Ears: hearing grossly normal bilaterally Throat: Yes posterior oropharynx normal Neck Neck: Yes no lymphadenopathy and Yes supple Resp Effort & Inspection: able to speak in complete sentences Auscultation: wheezes Cardio Rhythm: regular rhythm Heart sounds: S1 normal heart sound present and S2 normal heart sound present GI Inspection: Yes normal to inspection Palpation (GI): Soft to palpation Percussion: Yes normal to percussion Auscultation: normal bowel sounds Coding Level of Care Code Est Pt Level 3 (75795) Diagnoses COPD (chronic obstructive pulmonary disease) J44.9 Assessment & Plan Assessment & Plan (1) COPD (chronic obstructive pulmonary disease): Comment: PFT 07/2023 Code(s): J44.9 - Chronic obstructive pulmonary disease, unspecified Category: Medical Plan: Change Symbicort to Trelegy 200 mcg, continue albuterol as needed patient will have CT of the chest tomorrow. EKG showed normal sinus rhythm no acute ST-T changes. Tobacco quitting discussed with the patient. Follow-up in 1 week and refer to pulmonology Orders: Orders PFT pulmonary function test Today J44.9 - Chronic obstructive pulmonary disease, unspecified AMB EKG-In Office Today I10 - Essential (primary) hypertension, R06.02 - Shortness of breath Referrals Pulmonology Referral J44.9 - Chronic obstructive pulmonary disease, unspecified Medications: New budesonide-formoterol 160-4.5 mcg/actuation (Symbicort) 2 puffs inhalation BID 10.2 grams 3RF qkobyhspgmn-wvhosgmeq-nxaqblsq 200-62.5-25 mcg (Trelegy Ellipta) 1 inh inhalation DAILY 60 ea 0RF sakdogueqiz-bohwhcvxl-dfwotrgr 200-62.5-25 mcg (Trelegy Ellipta) 1 inh inhalation DAILY 60 ea 0RF Refilled albuterol sulfate 2.5 mg (3 mL) inhalation Q4-6H PRN 180 mL 3RF shortness of breath or wheezing Discontinued benzonatate Discontinued Reason: Doctor's Order 100 mg PO TID 30 caps 0RF fluticasone furoate-vilanterol 200-25 mcg/dose (Breo Ellipta) Discontinued Reason: Doctor's Order 1 inh inhalation DAILY 60 ea 1RF
== END 2024-11-08 10:46 | disposition home or self-care (01) ==
PROVIDERS: PCP Internal Medicine; Visit Provider Internal Medicine
DX: J44.9 Chronic obstructive pulmonary disease, unspecified (principal)

== ENCOUNTER → 2024-11-08 09:20 | Outpatient (BNVA) | payer OTHER, SELFPAY | PROVIDERS: PCP Internal Medicine; Visit Provider Internal Medicine ==

== ENCOUNTER 2024-11-09 16:13 | Outpatient (REF) | payer OTHER, SELFPAY ==
--- NOTE | ~2024-11-09 | CT_ITS ---
EXAMINATION: CT CHEST WITHOUT CONTRAST CLINICAL INFORMATION: Disorders of diaphragm. COMPARISON: None available. TECHNIQUE: Multidetector volumetric CT imaging of the chest was done. Axial MIP volume rendering provided. Sagittal and coronal reformatted images were obtained. This CT examination was performed using dose optimization techniques as appropriate, variously including the following: *Automated exposure control *Adjustment of mA and/or kV according to patient size (this includes techniques or standardized protocols for targeted exams where dose is matched to indication/reason for exam; i.e. extremities or head) *Use of iterative reconstruction technique FINDINGS: BOILER ROOM OPERATOR: Mild elevation right hemidiaphragm noted. LUNGS: There is mild centrilobular emphysema present. There are a few apical blebs. There are localized centrilobular groundglass nodules in the anterior segment right upper lobe, with an appearance suggesting inflammatory/infectious etiology. Similar findings are noted in superior segment right lower lobe. 3 mm nodule in the posterior left lower lobe (series 4, image 106), nonspecific. There is a 1.3 cm pure groundglass nodule in the posterior lateral right upper lobe, nonspecific (series 4, image 53). There are a few small pure groundglass nodules scattered in the left upper lobe largest measuring 5 mm in the posterior left upper lobe (series 4, image 53). These are also nonspecific but likely inflammatory or infectious. Minimal thickening of the small airways, without bronchiectasis, suggesting mild bronchitis. No pleural effusion or pneumothorax. MEDIASTINUM: Normal thyroid. No abnormal lymphadenopathy or mass. Aorta and main pulmonary artery are normal. There is a trace pericardial effusion anteriorly. Heart size is normal. Mildly patulous esophagus present questionable tiny type I hiatus hernia. Findings suggest reflux. Central airways are patent and normal. CORONARY ARTERY CALCIFICATION: None visualized on this study. PLEURA: There is no pleural effusion. No pleural mass or thickening. AXILLA/CHEST WALL: No lymphadenopathy. UPPER ABDOMEN: Cholecystectomy. Unenhanced liver has a normal appearance. Normal spleen, adrenal glands, pancreas, and imaged left kidney. Bowel structures appear normal. OSSEOUS STRUCTURES: No suspicious lytic or blastic bone lesion. Mild degenerative spinal changes. CT/CT chest wo IV con IMPRESSION: 1. There is mild centrilobular emphysema. 2. There are grouped centrilobular groundglass nodules present in the anterior right upper lobe, left upper lobe, superior segment right lower lobe. These are felt to represent infectious/inflammatory abnormality. 3. There is mild diffuse small airway thickening suggesting mild chronic bronchitis. 4. Mild elevation right hemidiaphragm, nonspecific. 5. There is a 1.3 cm groundglass nodule in the posterior lateral right upper lobe. 3 mm nodule left lower lobe. Follow-up CT in one year suggested. 6. Mildly patulous esophagus, with air-fluid levels suggesting possible reflux. 7. Cholecystectomy. Electronically signed by: Preet Brasher MD 11/10/2024 08:28 AM SHELL[facility]
== END 2024-11-09 16:14 | disposition home or self-care (01) ==
LOC: HO.CT 16:13
PROVIDERS: PCP Internal Medicine; Visit Provider Internal Medicine
DX: J98.6 Disorders of diaphragm (principal); R06.02 Shortness of breath
CPT/HCPCS: 71250

== ENCOUNTER → 2024-11-09 16:14 | Outpatient (BNV) | payer OTHER, SELFPAY | PROVIDERS: PCP Internal Medicine; Visit Provider Radiology Diagnostic Radiology | DX: R91.8 Other nonspecific abnormal finding of lung field (principal) | CPT/HCPCS: 71250 ==

== ENCOUNTER 2024-11-17 09:06 | Outpatient (AMB) | payer OTHER, SELFPAY ==
[2024-11-17 09:09] VITALS: BP 110/70; PULSE 92; RESP 18; TEMP 36.7; O2SAT 97; BMI 26.1
--- NOTE | 2024-11-17 09:09 | MHC.PC.OV ---
Vital Signs 11/17/24 09:09 Height 4 ft 10 in Weight 125 lb BMI 26.1 BP 110/70 Blood Pressure Location Lt brachial Position Sitting Respiration 18 Pulse 92 Pulse Source Pulse Oximeter Temp 98.1 F Temp Source Oral Pulse Oximetry (%) 97 Oxygen Delivery Method Room Air Intake Visit Reasons: 1 week follow up Intake Note: Pt is here today for 1 week follow up visit on Ct scan result. Allergies spiriva Adverse Reaction (Intermediate, Uncoded 11/17/24 09:10) Chest Pain Medication List - Last Reconciled 11/17/24 by Agatha Cosme MD albuterol sulfate 90 mcg/actuation 2 puffs inhalation Q6H PRN albuterol sulfate 2.5 mg (3 mL) inhalation Q4-6H PRN budesonide 0.5 mg inhalation BID PRN cbtqbqgvmkj-kpyonhoap-faznlzki 200-62.5-25 mcg (Trelegy Ellipta) 1 inh inhalation DAILY metoprolol succinate ER 50 mg PO DAILY naproxen 500 mg PO BID PRN 14 days Tobacco use date assessed: 11/17/24 Dental Screening Dental Screen Date: 11/08/24 HPI 1 week follow up HPI Details Patient presents for the follow-up of COPD exacerbation. She has been using Trelegy and is feeling significantly better. Patient still reports intermittent cough but denies wheezing shortness of breaths at night. She has been cutting down on smoking and is planning to quit completely. CT of the chest results discussed with the patient it showed mild emphysema, chronic bronchitis and 2 ground-glass lung nodules and repeat CT in 1 year was recommended. Patient has PFT scheduled next month. [facility] Medical History (Updated 11/17/24 @ 09:49 by Agatha Cosme MD) Viral illness HTN (hypertension) Annual physical exam Diarrhea GERD (gastroesophageal reflux disease) Dysphagia Chronic anxiety COPD, mild Hemorrhoids Surgical History History of tubal ligation History of section Hx of tonsillectomy History of esophagogastroduodenoscopy (EGD) Hx of colonoscopy Hx of cholecystectomy Family History Father No problems noted. Mother No problems noted. Social History Housing: House Alcohol intake: current Alcohol intake frequency: 3 or more drinks per day Patient Tobacco Use Status: Current everyday Tobacco user Tobacco use type: Cigarette Cigarettes Per Day: 15 e-Cigarette/Vaping Use: Never Used service: No Current occupational status: employed Cognitive needs: No Hearing needs: No Vision needs: Yes Questionnaire Thrive Questionnaire Date Thrive assessed: 11/17/24 I am a: Patient What is your living situation today?: I have a steady place to live Within the past 12 months, did the food you bought not last and you didn't have the money to get more?: Never true Within the past 12 months, did you worry whether your food would run out before you got money to buy more?: Never true Do you have trouble paying for medicines?: No Do you have trouble getting transportation to medical appointments?: No Do you have trouble paying your heating and electricity bill?: No Do you have trouble taking care of your child, family member or friend?: No Do you have trouble with day-to-day activities such as bathing, preparing meals, shopping, managing finances, etc.?: No Are you currently unemployed and looking for a job?: No Are you interested in more education?: No Please select the resources that you would like help with: None Currently or been in a relationship where the following occur: No concerns reported THRIVE Score: 0 MARCO ANTONIO-7 AMB Questionnaire MARCO ANTONIO-7 Date MARCO ANTONIO - 7 assessed: 11/17/24 Feeling nervous, anxious, or on edge: 0 = Not at all Not being able to stop or control worryin = Not at all Worrying too much about different things: 0 = Not at all Trouble relaxin = Not at all Being so restless that it is hard to sit still: 0 = Not at all Becoming easily annoyed or irritable: 0 = Not at all Feeling afraid as if something awful might happen: 0 = Not at all Total MARCO ANTONIO-7 score (0-4 normal; 5-9 mild; 10-14 moderate; 15-21 severe): 0 Source: Developed by Drs. Harshil Giron, Mira Conrad, Andres Luke and colleagues, with an educational lily from [employer]. MARCO ANTONIO-7 Assessment Billing MARCO ANTONIO-7 Assessment Tool: MARCO ANTONIO-7 Assessment 11798 Review of Systems Const All systems reviewed & are unremarkable except as noted in HPI and below Eyes Reports no additional complaints ENT Reports no additional complaints Card Reports no additional complaints Resp Reports no additional complaints GI Reports no additional complaints Reports no additional complaints Physical exam (Primary Care) Vital Signs: Last Vital Signs Temp 98.1 F 11/17/24 09:09 Pulse 92 11/17/24 09:09 Resp 18 11/17/24 09:09 BP 110/70 11/17/24 09:09 Pulse Ox 97 11/17/24 09:09 Oxygen Delivery Method Room Air 11/17/24 09:09 BMI result Body Mass Index 26.1 Tobacco/Smoking Status: Tobacco use Status Tobacco use date assessed 11/17/24 11/17/24 09:17 Patient Tobacco Use Status Current everyday Tobacco 11/17/24 09:17 Tobacco use type Cigarette 11/17/24 09:17 e-Cigarette/Vaping Use Never Used 11/17/24 09:17 Thrive Assessment: Date of Thrive Assessment Date Thrive assessed 11/17/24 11/17/24 09:17 Currently or been in a relationship where the following occur: No concerns reported Const General: no acute distress HENMT Head: Yes normal to inspection Face and sinus: Yes normal facial exam Neck Neck: Yes supple Resp Effort & Inspection: normal respiratory effort Auscultation: diminished lung sounds Cardio Rhythm: regular rhythm Heart sounds: S1 normal heart sound present and S2 normal heart sound present Coding Level of Care Code Est Pt Level 4 (35676) Diagnoses Anemia D64.9 HTN (hypertension) I10 Elevated hemidiaphragm J98.6 COPD (chronic obstructive pulmonary disease) J44.9 Smoker F17.200 Additional Codes MARCO ANTONIO-7 Assessment Billing - MARCO ANTONIO-7 Assessment Tool: MARCO ANTONIO-7 Assessment 87180 ([id number]) Assessment & Plan Assessment & Plan (1) Anemia: Comment: Iron deficiency due to heavy menses, on iron replacement Code(s): D64.9 - Anemia, unspecified Category: Medical Plan: Start iron replacement every other day check CBC and iron count in 2 months (2) HTN (hypertension): Code(s): I10 - Essential (primary) hypertension Category: Medical Plan: Continue metoprolol (3) Elevated hemidiaphragm: Comment: RIGHT, CT chest 10/2024 not significant mild right hemidiaphragm elevation Code(s): J98.6 - Disorders of diaphragm Category: Medical Plan: Benign (4) COPD (chronic obstructive pulmonary disease): Comment: PFT 07/2023 Code(s): J44.9 - Chronic obstructive pulmonary disease, unspecified Category: Medical Plan: Continue Trelegy and albuterol p.r.n., patient has an appointment with change control manager next month and PFTs. Follow-up in 2 months (5) Smoker: Comment: since 11 yro, 1/ PPD Code(s): F17.200 - Nicotine dependence, unspecified, uncomplicated Category: Social Hx Plan: Tobacco quitting discussed with the patient. She will try to quit smoking with Chantix Orders: Orders Complete Blood Count Auto Diff 2 Months D64.9 - Anemia, unspecified, I10 - Essential (primary) hypertension IRON PROFILE 2 Months D64.9 - Anemia, unspecified, I10 - Essential (primary) hypertension Comprehensive [place]. Panel Fast 2 Months D64.9 - Anemia, unspecified, I10 - Essential (primary) hypertension Vitamin D 25-OH Total 2 Months D64.9 - Anemia, unspecified, I10 - Essential (primary) hypertension Medications: New ferrous sulfate 324 mg PO Q OTHER DAY 30 tabs 1RF varenicline tartrate (Chantix Starting Month Box) PO PER PKG DIR 53 ea 0RF varenicline tartrate (Chantix Continuing Month Box) 1 mg PO BID 56 tabs 1RF cholecalciferol (vitamin D3) 50 mcg PO DAILY 90 caps 1RF Refilled ayogmcmqnrc-uysyvkhep-mmkmvtsi 200-62.5-25 mcg (Trelegy Ellipta) 1 inh inhalation DAILY 60 ea 0RF
== END 2024-11-17 09:51 | disposition home or self-care (01) ==
PROVIDERS: PCP Internal Medicine; Visit Provider Internal Medicine
DX: D64.9 Anemia, unspecified (principal); I10 Essential (primary) hypertension; J98.6 Disorders of diaphragm; J44.9 Chronic obstructive pulmonary disease, unspecified; F17.200 Nicotine dependence, unspecified, uncomplicated

== ENCOUNTER → 2024-11-17 09:06 | Outpatient (BNVA) | payer OTHER, SELFPAY | PROVIDERS: PCP Internal Medicine; Visit Provider Internal Medicine | DX: J44.9 Chronic obstructive pulmonary disease, unspecified (principal); D64.9 Anemia, unspecified; I10 Essential (primary) hypertension; J98.6 Disorders of diaphragm; F17.210 Nicotine dependence, cigarettes, uncomplicated; Z79.899 Other long term (current) drug therapy | CPT/HCPCS: 96127 ==

== ENCOUNTER 2024-11-22 14:14 | Outpatient (AMB) | payer OTHER, SELFPAY ==
--- NOTE | 2024-11-22 14:30 | A.OFFVIS_ITS ---
Vital Signs 11/22/24 14:31 Height 4 ft 10 in Weight 127 lb BMI 26.5 BP 116/64 Blood Pressure Location Rt brachial Pulse 96 Pulse Source Pulse Oximeter Pulse Oximetry (%) 100 Oxygen Delivery Method Room Air Intake Visit Reasons: COPD Computer Language Coder Required: No Revenue Cycle Consultant: Revenue Cycle Consultant offered & declined Accompanied by: Self / Same As Patient Allergies spiriva Adverse Reaction (Intermediate, Uncoded 11/22/24 14:37) Chest Pain Medication List - Last Reconciled 11/22/24 by Jovanna Holden LPN albuterol sulfate 90 mcg/actuation 2 puffs inhalation Q6H PRN albuterol sulfate 2.5 mg (3 mL) inhalation Q4-6H PRN budesonide 0.5 mg inhalation BID PRN cholecalciferol (vitamin D3) 50 mcg PO DAILY ferrous sulfate 324 mg PO Q OTHER DAY [id number]-zdwiicaud-[id number] 200-62.5-25 mcg (Trelegy Ellipta) 1 inh inhalation DAILY metoprolol succinate ER 50 mg PO DAILY naproxen 500 mg PO BID PRN 14 days varenicline tartrate (Chantix Starting Month Box) PO PER PKG DIR varenicline tartrate (Chantix Continuing Month Box) 1 mg PO BID HPI HPI COPD: Details: Maggie is a pleasant 54 year old female, current smoker, with approximately 50 pack year history with underlying COPD, HTN and GERD. She was referred by PCP for pulmonary evaluation for subacute cough. Her symptoms began after mika Influenza A in September, leading to treatment with Tamiflu and prednisone but negligible improvement in symptoms. She was also prescribed azithromycin and levaquin, in addition to prednisone without significant relief. There has been moderate improvement in symptoms since commencing Trelegy, whereas Symbicort provided minimal benefit previously. Cough was previously dry however after starting Trelegy about a week ago has had slight improvement in persistence of cough and cough now productive with grayish sputum with associated chest tightness, and wheezing. . A CT scan of the lungs has revealed small nodules and ground glass opacities consistent with inflammatory, possibly infectious changes.She denies prior h/o asthma or hospitalizations/intubations related to respiratory distress. She continues to smoke 1/2 ppd for the last few months, previously 1-2ppd smoker. She reports occupational exposures working in the [employer] industry with exposure to potentially harmful chemicals possibly exacerbating her condition including MEK, Toluene and Acetone, only recently wearing a mask. The patient has not used omeprazole for GERD management, contributing to possible silent reflux symptoms worsening the cough, will be further evaluated by GI. She reports father, smoker, with COPD and paternal grandmother, smoker, with lung cancer. She has a h/o a seasonal allergies, ragweed and trees, previously under the care of allergy. [facility] Medical History (Updated 11/17/24 @ 09:49 by Agatha Cosme MD) Viral illness HTN (hypertension) Annual physical exam Diarrhea GERD (gastroesophageal reflux disease) Dysphagia Chronic anxiety COPD, mild Hemorrhoids Surgical History History of tubal ligation History of section Hx of tonsillectomy History of esophagogastroduodenoscopy (EGD) Hx of colonoscopy Hx of cholecystectomy Family History Father No problems noted. Mother No problems noted. Social History (Updated 11/22/24 @ 14:39 by Jovanna Holden LPN) Housing: House Alcohol intake: current Alcohol intake frequency: 3 or more drinks per day Patient Tobacco Use Status: Current everyday Tobacco user Tobacco use type: Cigarette Cigarettes Per Day: 10 e-Cigarette/Vaping Use: Never Used service: No Current occupational status: employed Cognitive needs: No Hearing needs: No Vision needs: Yes Review of Systems Const Denies chills, Denies excessive sweating, Denies fever(s), Denies headache(s) and Denies night sweats Eyes Denies dry eyes, Denies irritation and Denies itchy eyes ENT Reports Normal hearing present, Denies headache(s), Denies nasal congestion, Denies nasal discharge, Denies post nasal drip and Denies sore throat Card Denies chest pain, Denies chest pain at rest, Denies chest pain with activity, Denies claudication, Denies leg edema, Denies orthopnea and Denies paroxysmal n octurnal dyspnea Resp Denies excessive phlegm production, Denies pain on inspiration, Denies pain with cough and Denies stridor Musc Denies myalgias Neuro Reports Normal hearing present and Denies headache(s) Endo Denies excessive sweating Arnel/Lymph Denies lymphadenopathy Aller/Immun Denies itchy eyes and Denies seasonal rhinorrhea Physical Exam Vital Signs: Last Vital Signs Pulse 96 11/22/24 14:31 BP 116/64 11/22/24 14:31 Pulse Ox 100 11/22/24 14:31 Oxygen Delivery Method Room Air 11/22/24 14:31 BMI result Body Mass Index 26.5 Const General: cooperative, healthy appearing, no acute distress, well developed and alert Orientation/consciousness: patient oriented x3 Limitations: no limitations HEENT Head: Yes normal to inspection, Yes normocephalic and Yes atraumatic Ears: hearing grossly normal bilaterally and external ears normal Eyes General: appearance normal, both eyes and all related structures Eyelids: Yes eyelids normal Sclerae: sclerae normal EOM: EOMs intact bilaterally Neck Neck: Yes normal visual inspection and Yes no lymphadenopathy Lymphatic: no lymphadenopathy noted Chest Chest palpation & inspection: normal inspection of the chest Resp Effort & Inspection: normal respiratory effort, able to speak in complete sentences, no audible wheezes, Actively coughing (harsh cough throughout visit), no stridor, not tachypneic, no tripod positioning and no use of accessory muscles Auscultation: rhonchi and wheezes Cardio Jugular venous distension: no JVD Rate: regular rate Rhythm: regular rhythm Skin Other: warm, dry General skin exam: no rashes or lesions noted Neuro General: patient oriented x3 Cranial nerves: Yes Normal hearing present Cognition (Neuro): normal cognition Gait exam (Neuro): Normal gait present Extrem General: Yes normal to inspection, Yes capillary refill normal, Yes no clubbing, cyanosis or edema and Yes no pedal edema Psych Appearance: grossly normal and well kempt Speech and movement: Normal speech and movement present and Clear speech present Affect: normal affect Attitude: cooperative Thought process: Normal thought process present Thought content: Normal thought content present Insight: Good insight present (Psych) Judgement: Good judgement present (Psych) Results Reviewed Results Reviewed: [address] [address] [address] Scan Report Signed Patient: Maggie Cerda MR#: [id number] : 1970 Acct:[id number] Age/Sex: 54 / F ADM Date: 11/09/24 Loc: HO.CT Attending Dr: Agatha Cosme MD Ordering Physician: Agatha Cosme MD Date of Service: 11/09/24 Procedure(s): CT chest wo IV con Accession Number(s): [id number] cc: Agatha Cosme MD~ Report Number: [id number]: Total DLP = 102.00 mGy-cm EXAMINATION: CT CHEST WITHOUT CONTRAST CLINICAL INFORMATION: Disorders of diaphragm. COMPARISON: None available. TECHNIQUE: Multidetector volumetric CT imaging of the chest was done. Axial MIP volume rendering provided. Sagittal and coronal reformatted images were obtained. This CT examination was performed using dose optimization techniques as appropriate, variously including the following: *Automated exposure control *Adjustment of mA and/or kV according to patient size (this includes techniques or standardized protocols for targeted exams where dose is matched to indication/reason for exam; i.e. extremities or head) *Use of iterative reconstruction technique FINDINGS: ARCHITECTURAL ADMINISTRATIVE ASSISTANT: Mild elevation right hemidiaphragm noted. LUNGS: There is mild centrilobular emphysema present. There are a few apical blebs. There are localized centrilobular groundglass nodules in the anterior segment right upper lobe, with an appearance suggesting inflammatory/infectious etiology. Similar findings are noted in superior segment right lower lobe. 3 mm nodule in the posterior left lower lobe (series 4, image 106), nonspecific. There is a 1.3 cm pure groundglass nodule in the posterior lateral right upper lobe, nonspecific (series 4, image 53). There are a few small pure groundglass nodules scattered in the left upper lobe largest measuring 5 mm in the posterior left upper lobe (series 4, image 53). These are also nonspecific but likely inflammatory or infectious. Minimal thickening of the small airways, without bronchiectasis, suggesting mild bronchitis. No pleural effusion or pneumothorax. MEDIASTINUM: Normal thyroid. No abnormal lymphadenopathy or mass. Aorta and main pulmonary artery are normal. There is a trace pericardial effusion anteriorly. Heart size is normal. Mildly patulous esophagus present questionable tiny type I hiatus hernia. Findings suggest reflux. Central airways are patent and normal. CORONARY ARTERY CALCIFICATION: None visualized on this study. PLEURA: There is no pleural effusion. No pleural mass or thickening. AXILLA/CHEST WALL: No lymphadenopathy. UPPER ABDOMEN: Cholecystectomy. Unenhanced liver has a normal appearance. Normal spleen, adrenal glands, pancreas, and imaged left kidney. Bowel structures appear normal. OSSEOUS STRUCTURES: No suspicious lytic or blastic bone lesion. Mild degenerative spinal changes. CT/CT chest wo IV con IMPRESSION: 1. There is mild centrilobular emphysema. 2. There are grouped centrilobular groundglass nodules present in the anterior right upper lobe, left upper lobe, superior segment right lower lobe. These are felt to represent infectious/inflammatory abnormality. 3. There is mild diffuse small airway thickening suggesting mild chronic bronchitis. 4. Mild elevation right hemidiaphragm, nonspecific. 5. There is a 1.3 cm groundglass nodule in the posterior lateral right upper lobe. 3 mm nodule left lower lobe. Follow-up CT in one year suggested. 6. Mildly patulous esophagus, with air-fluid levels suggesting possible reflux. 7. Cholecystectomy. Electronically signed by: Preet Brasher MD 11/10/2024 08:28 AM EST Dictated By: Preet Brasher MD Signed By: <Electronically signed by Preet Brasher MD in OV> 11/10/24 0828 DD/ 1625 TD/TT: 11/09/24 1637 Flare Worker: Assessment & Plan Assessment & Plan (1) COPD (chronic obstructive pulmonary disease): Comment: PFT 07/2023 Code(s): J44.9 - Chronic obstructive pulmonary disease, unspecified Category: Medical (2) SOB (shortness of breath): Code(s): R06.02 - Shortness of breath Category: Medical (3) Smoker: Comment: since 9 yro, 1/ PPD Code(s): F17.200 - Nicotine dependence, unspecified, uncomplicated Category: Social Hx (4) Lung nodule, multiple: Comment: 11/09/2024 :CT chest: Mild emphysema, chronic bronchitis, ground-glass nodules in central right upper lobe, left upper lobe, superior segment of right lower lobe, 1.3 cm ground-glass posterior lateral right upper lobe nodule and 3 mm left lower lobe nodule, repeat CT in 1 year recommend Code(s): R91.8 - Other nonspecific abnormal finding of lung field Category: Medical (5) GERD (gastroesophageal reflux disease): Code(s): K21.9 - Gastro-esophageal reflux disease without esophagitis Category: Medical Plan Maggie presents for pulmonary evaluation for subacute cough with grayish sputum, rhonchi and wheezing on exam. Chest CT suggestive of infectious/inflammatory process despite prior abx and prednisone. She has had slight improvements since switching to Trelegy however cough is quite harsh and persistent. We discussed the multifactorial nature of her respiratory conditions, acknowledging the overlapping factors including COPD, possible occupational bronchitis, and environmental irritants. Will send in longer taper of prednisone,emphasizing the benefit of systemic corticosteroids and long-acting bronchodilators. She previously trialed nebulized therapy but had worsening respiratory symptoms so will avoid at this time. Will also send Bactrim for possible atypical bacteria, and send for sputum if no improvement. Addressed her GERD-related concerns, suggesting the resumption of omeprazole, and reviewed potential occupational inhalant exposures, advising the use of masks and cessation of smoking. Will have close follow up in 2-4 weeks or sooner if needed. All questions were answered and patient is in agreement of plan. Orders: Orders Sputum Cult + Gram stain Today R05.9 - Cough, unspecified Medications: New sulfamethoxazole-trimethoprim 800-160 mg (Bactrim DS) 1 tab PO BID 14 tabs 0RF prednisone see taper instructions Take 4 pills daily for 5 days, then go down by 1 pill every 5 days; 20 days 50 tabs 0RF 10 mg PO DIRECTED 50 tabs 0RF Coding Level of Care Code New Pt Level 4 (21682) Diagnoses COPD (chronic obstructive pulmonary disease) J44.9 SOB (shortness of breath) R06.02 Smoker F17.200 Lung nodule, multiple R91.8 GERD (gastroesophageal reflux disease) K21.9
[2024-11-22 14:31] VITALS: BP 116/64; PULSE 96; O2SAT 100; BMI 26.5
== END 2024-11-22 15:23 | disposition home or self-care (01) ==
PROVIDERS: PCP Internal Medicine; Referring Provider Internal Medicine; Visit Provider Nurse Practitioner Family
DX: J44.9 Chronic obstructive pulmonary disease, unspecified (principal); R06.02 Shortness of breath; F17.200 Nicotine dependence, unspecified, uncomplicated; R91.8 Other nonspecific abnormal finding of lung field; K21.9 Gastro-esophageal reflux disease without esophagitis
CPT/HCPCS: 99204

== ENCOUNTER → 2024-11-22 14:14 | Outpatient (BNVA) | payer OTHER, SELFPAY | PROVIDERS: PCP Internal Medicine; Referring Provider Internal Medicine; Visit Provider Nurse Practitioner Family ==

== ENCOUNTER 2024-12-13 07:10 | Outpatient (REF) | payer OTHER, SELFPAY | END 2024-12-13 07:11 | disposition home or self-care (01) | LOC: HO.MAMMO 07:10 | PROVIDERS: PCP Internal Medicine; Visit Provider Internal Medicine | DX: Z12.31 Encounter for screening mammogram for malignant neoplasm of breast (principal) | CPT/HCPCS: 77063; 77067 ==

== ENCOUNTER → 2024-12-13 07:30 | Outpatient (BNV) | payer OTHER, SELFPAY | PROVIDERS: PCP Internal Medicine; Visit Provider Internal Medicine | DX: Z12.31 Encounter for screening mammogram for malignant neoplasm of breast (principal) | CPT/HCPCS: 77063; 77067 ==

== ENCOUNTER 2024-12-15 13:49 | Outpatient (REF) | payer OTHER, SELFPAY ==
--- NOTE | 2024-12-15 13:56 | PFT_ITS ---
Indication: COPD Spirometry [FEV1 to FVC pre bronchodilator 69% post bronchodilator 71%; FEV1 1.99 L; FVC 2.79 L. No significant response to bronchodilators noted.] Lung Volumes [Total lung capacity 99% predicted] Diffusion Capacity [DLCO 82% predicted] Comparisons [none] Interpretation [The patient appears to have a partially reversible obstruction consistent with asthma COPD overlap syndrome or uncontrolled asthma. No significant response to bronchodilators noted. Lung volumes are within normal limits. The patient does have a low normal diffusing capacity. Clinical correlation warranted.] MTDD
[2024-12-15 14:35] VITALS: PULSE 85; O2SAT 99
== END 2024-12-15 13:50 | disposition home or self-care (01) ==
LOC: HO.RESP 13:49
PROVIDERS: PCP Internal Medicine; Visit Provider Internal Medicine
DX: J44.9 Chronic obstructive pulmonary disease, unspecified (principal)
CPT/HCPCS: 94010; 94640; 94727; 94729

== ENCOUNTER → 2024-12-15 13:56 | Outpatient (BNV) | payer OTHER, SELFPAY | PROVIDERS: PCP Internal Medicine; Visit Provider Hospitalist | DX: J44.9 Chronic obstructive pulmonary disease, unspecified (principal) | CPT/HCPCS: 94060; 94727; 94729 ==

== ENCOUNTER 2024-12-19 13:53 | Outpatient (AMB) | payer OTHER, SELFPAY ==
[2024-12-19 14:04] VITALS: BP 118/64; PULSE 90; O2SAT 99; BMI 26.7
--- NOTE | 2024-12-19 14:04 | A.OFFVIS_ITS ---
Vital Signs 12/19/24 14:04 Height 4 ft 10 in Weight 128 lb BMI 26.7 BP 118/64 Blood Pressure Location Rt brachial Position Sitting Pulse 90 Pulse Source Pulse Oximeter Pulse Oximetry (%) 99 Oxygen Delivery Method Room Air Intake Visit Reasons: COPD Slack Line Yarder Required: No Salvage Mechanic: Salvage Mechanic offered & declined Accompanied by: Self / Same As Patient Allergies spiriva Adverse Reaction (Intermediate, Uncoded 12/19/24 14:07) Chest Pain Medication List - Last Reconciled 12/19/24 by Jovanna Holden LPN albuterol sulfate 90 mcg/actuation 2 puffs inhalation Q6H PRN albuterol sulfate 2.5 mg (3 mL) inhalation Q4-6H PRN budesonide 0.5 mg inhalation BID PRN cholecalciferol (vitamin D3) 50 mcg PO DAILY ferrous sulfate 324 mg PO Q OTHER DAY [id number]-onhwdupqi-kjkebkyi 200-62.5-25 mcg (Trelegy Ellipta) 1 inh inhalation DAILY metoprolol succinate ER 50 mg PO DAILY naproxen 500 mg PO BID PRN 14 days varenicline tartrate (Chantix Starting Month Box) PO PER PKG DIR varenicline tartrate (Chantix Continuing Month Box) 1 mg PO BID HPI HPI COPD: Details: Maggie is a pleasant 54 year old female, current smoker, with approximately 50 pack year history with underlying COPD, HTN and GERD. She was initially referred by PCP for pulmonary evaluation for subacute cough. Her symptoms began after mika Influenza A in September, leading to treatment with Tamiflu and prednisone but negligible improvement in symptoms. She was also prescribed azithromycin and levaquin, in addition to prednisone without significant relief. There has been moderate improvement in symptoms since commencing Trelegy, whereas Symbicort provided minimal benefit previously. Cough was previously dry however after starting Trelegy about a week ago has had slight improvement in persistence of cough and cough now productive with grayish sputum with associated chest tightness, and wheezing. At the last visit she was treated with prednisone in addition to Bactrim with complete resolution of symptoms for two weeks. Unfortunately she reports cough has returned, mostly dry with associated wheezing. She denies dyspnea or chest tightness. Since the last visit, she has also increased her smoking from 1/2 ppd back to 1 ppd. Today she presents to review PFT results. [facility] Medical History (Updated 11/17/24 @ 09:49 by Agatha Cosme MD) Viral illness HTN (hypertension) Annual physical exam Diarrhea GERD (gastroesophageal reflux disease) Dysphagia Chronic anxiety COPD, mild Hemorrhoids Surgical History History of tubal ligation History of section Hx of tonsillectomy History of esophagogastroduodenoscopy (EGD) Hx of colonoscopy Hx of cholecystectomy Family History Father No problems noted. Mother No problems noted. Social History (Updated 12/19/24 @ 14:10 by Jovanna Holden LPN) Housing: House Alcohol intake: current Alcohol intake frequency: 3 or more drinks per day Patient Tobacco Use Status: Current everyday Tobacco user Tobacco use type: Cigarette Cigarette Packs Per Day: 1 e-Cigarette/Vaping Use: Never Used service: No Current occupational status: employed Cognitive needs: No Hearing needs: No Vision needs: Yes Review of Systems Const Denies chills, Denies excessive sweating, Denies fever(s), Denies headache(s) and Denies night sweats Eyes Denies dry eyes, Denies irritation and Denies itchy eyes ENT Reports Normal hearing present, Denies headache(s), Denies nasal congestion, Denies nasal discharge, Denies post nasal drip and Denies sore throat Card Denies chest pain, Denies chest pain at rest, Denies chest pain with activity, Denies claudication, Denies leg edema, Denies dyspnea on exertion, Denies orthopnea and Denies paroxysmal nocturnal dyspnea Resp Denies chest congestion, Reports cough, Denies hemoptysis, Denies excessive phlegm production, Denies pain on inspiration, Denies pain with cough, Denies dyspnea on exertion, Denies stridor and Reports wheezing Musc Denies myalgias Neuro Reports Normal hearing present and Denies headache(s) Endo Denies excessive sweating Arnel/Lymph Denies lymphadenopathy Aller/Immun Denies itchy eyes, Denies seasonal rhinorrhea and Reports wheezing Physical Exam Vital Signs: Last Vital Signs Pulse 90 12/19/24 14:04 BP 118/64 12/19/24 14:04 Pulse Ox 99 12/19/24 14:04 Oxygen Delivery Method Room Air 12/19/24 14:04 BMI result Body Mass Index 26.7 Const General: cooperative, healthy appearing, no acute distress, well developed and alert Orientation/consciousness: patient oriented x3 Limitations: no limitations HEENT Head: Yes normal to inspection, Yes normocephalic and Yes atraumatic Ears: hearing grossly normal bilaterally and external ears normal Eyes General: appearance normal, both eyes and all related structures Eyelids: Yes eyelids normal Sclerae: sclerae normal EOM: EOMs intact bilaterally Neck Neck: Yes normal visual inspection and Yes no lymphadenopathy Lymphatic: no lymphadenopathy noted Chest Chest palpation & inspection: normal inspection of the chest Resp Effort & Inspection: normal respiratory effort, able to speak in complete sentences, no audible wheezes, Actively coughing (harsh cough throughout visit), no stridor, not tachypneic, no tripod positioning and no use of accessory muscles Auscultation: no crackles, no rales, no rhonchi and wheezes Cardio Jugular venous distension: no JVD Rate: regular rate Rhythm: regular rhythm Skin Other: warm, dry General skin exam: no rashes or lesions noted Neuro General: patient oriented x3 Cranial nerves: Yes Normal hearing present Cognition (Neuro): normal cognition Gait exam (Neuro): Normal gait present Extrem General: Yes normal to inspection, Yes capillary refill normal, Yes no clubbing, cyanosis or edema and Yes no pedal edema Psych Appearance: grossly normal and well kempt Speech and movement: Normal speech and movement present and Clear speech present Affect: normal affect Attitude: cooperative Thought process: Normal thought process present Thought content: Normal thought content present Insight: Good insight present (Psych) Judgement: Good judgement present (Psych) Assessment & Plan Assessment & Plan (1) COPD (chronic obstructive pulmonary disease): Comment: PFT 07/2023 Code(s): J44.9 - Chronic obstructive pulmonary disease, unspecified Category: Medical (2) SOB (shortness of breath): Code(s): R06.02 - Shortness of breath Category: Medical (3) Smoker: Comment: since 9 yro, 1/ PPD Code(s): F17.200 - Nicotine dependence, unspecified, uncomplicated Category: Social Hx (4) Lung nodule, multiple: Comment: 11/09/2024 :CT chest: Mild emphysema, chronic bronchitis, ground-glass nodules in central right upper lobe, left upper lobe, superior segment of right lower lobe, 1.3 cm ground-glass posterior lateral right upper lobe nodule and 3 mm left lower lobe nodule, repeat CT in 1 year recommend Code(s): R91.8 - Other nonspecific abnormal finding of lung field Category: Medical (5) GERD (gastroesophageal reflux disease): Code(s): K21.9 - Gastro-esophageal reflux disease without esophagitis Category: Medical Plan Will treat with prednisone at this time as she has had improvements in cough after Bactrim. If cough becomes productive will attempt sputum culture or if symptoms do not improve to call office. Advised to continue Trelegy and encouraged more frequent use of nebulized therapy. Will send DuoNeb. Prior Chest CT revealed small nodules and ground glass opacities consistent with inflammatory, possibly infectious changes and has repeat chest CT scheduled to assess for resolution after abx and prednisone. Discussed the likelihood that there are multiple exposures contributing to her symptoms including exposures at work, increased smoking and possible allergies. Will send for RAST to assess. Importance of smoking cessation reviewed. She states she will discuss with PCP. All questions were answered and patient is in agreement of plan. Will follow up in 6-8 weeks to review results of CT or sooner if needed. Orders: Orders Immunoglobulin E Today Z91.09 - Other allergy status, other than to drugs and biological substances Resp Allergy Profile Region I Today Z91.09 - Other allergy status, other than to drugs and biological substances Medications: New ipratropium-albuterol 0.5 mg-3 mg(2.5 mg base)/3 mL 3 mL inhalation Q6H PRN 180 mL 0RF wheezing prednisone see taper instructions; 40 mg Daily x3 days, 30 mg daily x3 days, 20 mg daily x3 days, 10 mg daily x3 days 10 mg PO DIRECTED 30 tabs 0RF Refilled albuterol sulfate 90 mcg/actuation 2 puffs inhalation Q6H PRN 1 ea 3RF shortness of breath or wheezing or cough Coding Level of Care Code Est Pt Level 4 (99761) Diagnoses COPD (chronic obstructive pulmonary disease) J44.9 SOB (shortness of breath) R06.02 Smoker F17.200 Lung nodule, multiple R91.8 GERD (gastroesophageal reflux disease) K21.9
== END 2024-12-19 14:35 | disposition home or self-care (01) ==
LOC: HO.HPSW 13:54
PROVIDERS: PCP Internal Medicine; Visit Provider Nurse Practitioner Family
DX: J44.9 Chronic obstructive pulmonary disease, unspecified (principal); R06.02 Shortness of breath; F17.200 Nicotine dependence, unspecified, uncomplicated; R91.8 Other nonspecific abnormal finding of lung field; K21.9 Gastro-esophageal reflux disease without esophagitis
CPT/HCPCS: 99214

== ENCOUNTER 2025-01-09 09:17 | Outpatient (REF) | payer OTHER, SELFPAY ==
--- NOTE | ~2025-01-09 | US_ITS ---
EXAMINATION: MM DIAGNOSTIC DIGITAL BREAST TOMOSYNTHESIS, BILATERAL Bilateral Limited ultrasound. CLINICAL INFORMATION: Call back from screening for bilateral asymmetries. COMPARISON: Mammography: Comparison is made with relevant prior exams. TECHNIQUE: Digital breast mammography with tomosynthesis is performed in both the craniocaudal and mediolateral oblique views along with computer-aided detection (CAD). FINDINGS: The breasts are heterogeneously dense, which may obscure small masses (ACR BI-RADS breast composition Category c). Left: Asymmetry medial breast posterior depth localizing superiorly persist on additional imaging projections No suspicious calcifications or other abnormal findings. Targeted color Doppler ultrasound scanning in the left breast from 10-2 o'clock demonstrates incidental adjacent simple to minimally complicated cyst at 2:00 3 cm from nipple measuring 6 x 6 x 7 mm. No sonographic correlate for the asymmetry seen on mammography. Right: Asymmetry inferior breast posterior depth on MLO view persists on additional imaging projections. Targeted color Doppler ultrasound was performed from 40 8:00 and demonstrates an incidental hypoechoic oval circumscribed probable minimally complicated cyst at 6:00 1 cm from nipple measuring 3 x 1 x 4 mm. No sonographic correlate is seen for the oval mass on mammography. Results are provided to the patient at time of visit by the technologist. US/US breast BI limited mamm only IMPRESSION: Left: Asymmetry medial breast posterior depth without sonographic correlate. Recommend six-month follow-up mammography for further evaluation of stability. Right: Oval mass inferior right breast on MLO view a posterior depth without sonographic correlate. Recommend 6 month follow-up mammography for further evaluation of stability. ASSESSMENT: BI-RADS BI-RADS 3 - Probably benign finding(s) - 6 month follow-up suggested RECOMMENDATION: 6 Month F/U This patient's information was entered into a reminder system with a target due date for their next mammogram. Electronically signed by: Candelaria Lu DO 01/09/2025 11:58 AM EDT
== END 2025-01-09 09:18 | disposition home or self-care (01) ==
LOC: HO.MAMMO 09:17
PROVIDERS: PCP Internal Medicine; Visit Provider Internal Medicine
DX: N64.89 Other specified disorders of breast (principal)
CPT/HCPCS: 76642; 77062; 77066

== ENCOUNTER → 2025-01-09 09:30 | Outpatient (BNV) | payer OTHER, SELFPAY | PROVIDERS: PCP Internal Medicine; Visit Provider Internal Medicine | DX: N63.15 Unspecified lump in the right breast, overlapping quadrants (principal); N63.21 Unspecified lump in the left breast, upper outer quadrant | CPT/HCPCS: 76642; 77062; 77066 ==

== ENCOUNTER 2025-01-13 11:26 | Outpatient (REF) | payer OTHER, SELFPAY ==
[2025-01-20 05:44] LABS: Class Alternaria alternata 0; Class Aspergillus fumigatus 0; Class Bermuda Grass 0/1; Class Birch 0; Class Cat Dander 0; Class Cladosporium herbarum 0; Class Cockroach 0; Class Common Ragweed 0; Class Cottonwood 0; Class Derm. pterony 0; Class Dermatophagoides farinae 0; Class Dog Dander 0; Class Elm 0; Class Maple Box Elder 0; Class Mountain Cedar 0; Class Mouse Urine Protein 0; Class Mugwort 0; Class Oak 0; Class Penicillium crysogenum 0; Class Rough Pigweed 0; Class Sheep Sorrel 0; Class Sycamore 0; Class Timothy Grass 0; Class Walnut Tree 0; Class White Ash 0; Class White Mulberry 0; D001 IgE D pteronyssinus <0.10 kU/L; D002 - IgE D farinae <0.10 kU/L; E001 - IgE Cat Dander <0.10 kU/L; E005 - IgE Dog Dander <0.10 kU/L; E072-IgE Mouse Urine <0.10 kU/L; G002 IgE Bermuda Grass 0.22 kU/L; G006 - IgE Timothy Grass <0.10 kU/L; I006-IgE Cockroach, German <0.10 kU/L; Immunoglobulin E 127 kU/L (<OR=114); M001 IgE Penicillium chrysogen <0.10 kU/L; M002 - IgE Cladosporium herbar <0.10 kU/L; M003 - IgE Aspergillus fumigat <0.10 kU/L; M006 - IgE Alternaria alternat <0.10 kU/L; T001 IgE Maple/Box Elder <0.10 kU/L; T003 IgE Common Silver Birch <0.10 kU/L; T006 - IgE Cedar, Mountain <0.10 kU/L; T007 - IgE Oak, White <0.10 kU/L; T008 IgE Elm, American <0.10 kU/L; T010 - IgE Walnut <0.10 kU/L; T011 - IgE Maple Leaf Sycamore <0.10 kU/L; T014 - IgE Cottonwood <0.10 kU/L; T015 - IgE Ash, White <0.10 kU/L; T070 - IgE White Mulberry <0.10 kU/L; W001 - IgE Ragweed, Short <0.10 kU/L; W006 - IgE Mugwort <0.10 kU/L; W014 IgE Pigweed, Common <0.10 kU/L; W018 IgE Sheep Sorrel <0.10 kU/L
== END 2025-01-13 11:27 | disposition home or self-care (01) ==
LOC: HO.HMGCLDS 11:26
PROVIDERS: PCP Internal Medicine; Visit Provider Nurse Practitioner Family
DX: Z91.09 Other allergy status, other than to drugs and biological substances (principal)
CPT/HCPCS: 36415; 82785; 86003

== ENCOUNTER 2025-01-15 11:19 | Outpatient (AMB) | payer OTHER, SELFPAY ==
[2025-01-15 11:41] VITALS: BP 118/80; PULSE 86; RESP 20; TEMP 36.7; O2SAT 97; BMI 26.3
--- NOTE | 2025-01-15 11:41 | A.OFFPC_ITS ---
Vital Signs 01/15/25 11:41 Height 4 ft 10 in Weight 126 lb BMI 26.3 BP 118/80 Blood Pressure Location Rt brachial Position Sitting Respiration 20 Pulse 86 Pulse Source Pulse Oximeter Temp 98.1 F Temp Source Oral Pulse Oximetry (%) 97 Oxygen Delivery Method Room Air Intake Visit Reasons: 2m follow up Intake Note: Pt is here today for 2 months follow up visit. Allergies spiriva Adverse Reaction (Intermediate, Uncoded 01/15/25 11:42) Chest Pain Medication List - Last Reconciled 01/15/25 by Agatha Cosme MD albuterol sulfate 2.5 mg (3 mL) inhalation Q4-6H PRN albuterol sulfate 90 mcg/actuation 2 puffs inhalation Q6H PRN bupropion HCl SR 150 mg PO DAILY cholecalciferol (vitamin D3) 50 mcg PO DAILY ferrous sulfate 324 mg PO Q OTHER DAY tposzkxamwf-gdkgyjgbk-qwjodplq 200-62.5-25 mcg (Trelegy Ellipta) 1 inh inhalation DAILY ipratropium-albuterol 0.5 mg-3 mg(2.5 mg base)/3 mL 3 mL inhalation Q6H PRN metoprolol succinate ER 50 mg PO DAILY naproxen 500 mg PO BID PRN 14 days varenicline tartrate (Chantix Starting Month Box) PO PER PKG DIR varenicline tartrate (Chantix Continuing Month Box) 1 mg PO BID Tobacco use date assessed: 11/17/24 Dental Screening Dental Screen Date: 11/08/24 HPI 2m follow up HPI Details Patient presents for the follow-up COPD/asthma controlled on Trelegy. she is quitting smoking PFSH Medical History Viral illness HTN (hypertension) Annual physical exam Diarrhea GERD (gastroesophageal reflux disease) Dysphagia Chronic anxiety COPD, mild Hemorrhoids Surgical History History of tubal ligation History of section Hx of tonsillectomy History of esophagogastroduodenoscopy (EGD) Hx of colonoscopy Hx of cholecystectomy Family History Father No problems noted. Mother No problems noted. Social History Housing: House Alcohol intake: current Alcohol intake frequency: 3 or more drinks per day Patient Tobacco Use Status: Current everyday Tobacco user Tobacco use type: Cigarette Cigarette Packs Per Day: 1 e-Cigarette/Vaping Use: Never Used service: No Current occupational status: employed Cognitive needs: No Hearing needs: No Vision needs: Yes Questionnaire Thrive Questionnaire Date Thrive assessed: 10/10/24 I am a: Patient What is your living situation today?: I have a steady place to live Within the past 12 months, did the food you bought not last and you didn't have the money to get more?: Never true Within the past 12 months, did you worry whether your food would run out before you got money to buy more?: Never true Do you have trouble paying for medicines?: No Do you have trouble getting transportation to medical appointments?: No Do you have trouble paying your heating and electricity bill?: No Do you have trouble taking care of your child, family member or friend?: No Do you have trouble with day-to-day activities such as bathing, preparing meals, shopping, managing finances, etc.?: No Are you currently unemployed and looking for a job?: No Are you interested in more education?: No Please select the resources that you would like help with: None Currently or been in a relationship where the following occur: No concerns reported THRIVE Score: 0 MARCO ANTONIO-7 AMB Questionnaire MARCO ANTONIO-7 Date MARCO ANTONIO - 7 assessed: 11/17/24 Source: Developed by Drs. Harshil Giron, Mira Conrad, Andres Luke and colleagues, with an educational lily from [employer]. Review of Systems Const All systems reviewed & are unremarkable except as noted in HPI and below Eyes Reports no additional complaints ENT Reports no additional complaints Card Reports no additional complaints Resp Reports no additional complaints GI Reports no additional complaints Reports no additional complaints Physical exam (Primary Care) Vital Signs: Last Vital Signs Temp 98.1 F 01/15/25 11:41 Pulse 86 01/15/25 11:41 Resp 20 01/15/25 11:41 BP 118/80 01/15/25 11:41 Pulse Ox 97 01/15/25 11:41 Oxygen Delivery Method Room Air 01/15/25 11:41 BMI result Body Mass Index 26.3 Tobacco/Smoking Status: Tobacco use Status Tobacco use date assessed 11/17/24 01/15/25 11:45 Patient Tobacco Use Status Current everyday Tobacco 01/15/25 11:45 Tobacco use type Cigarette 01/15/25 11:45 e-Cigarette/Vaping Use Never Used 01/15/25 11:45 Thrive Assessment: Date of Thrive Assessment Date Thrive assessed 10/10/24 01/15/25 11:45 Currently or been in a relationship where the following occur: No concerns r eported Const General: no acute distress HENMT Head: Yes normal to inspection Face and sinus: Yes normal facial exam Eyes General: appearance normal, both eyes and all related structures Neck Neck: Yes no lymphadenopathy and Yes supple Resp Effort & Inspection: normal respiratory effort Auscultation: clear to auscultation bilaterally Cardio Rhythm: regular rhythm Heart sounds: S1 normal heart sound present and S2 normal heart sound present GI Inspection: Yes normal to inspection Palpation (GI): Soft to palpation Percussion: Yes normal to percussion Auscultation: normal bowel sounds Coding Level of Care Code Est Pt Level 3 (08249) Diagnoses Lung nodule, multiple R91.8 Asthma-COPD overlap syndrome J44.89 Assessment & Plan Assessment & Plan (1) Lung nodule, multiple: Comment: 11/09/2024 :CT chest: Mild emphysema, chronic bronchitis, ground-glass nodules in central right upper lobe, left upper lobe, superior segment of right lower lobe, 1.3 cm ground-glass posterior lateral right upper lobe nodule and 3 mm left lower lobe nodule, repeat CT in 1 year recommended Code(s): R91.8 - Other nonspecific abnormal finding of lung field Category: Medical Plan: Upper respiratory symptoms resolved after antibiotic and prednisone treatment, repeat CT in 1 year to follow-up (2) Asthma-COPD overlap syndrome: Comment: PFTs partially reversible obstruction, no decreased diffusion capacity 11/2024 Code(s): J44.89 - Other specified chronic obstructive pulmonary disease Category: Medical Plan: Continue Trelegy and albuterol PRN. IgE and RAST test is pending, tobacco quitting discussed with the patient, return for physical in July with a fasting labs before Orders: Orders Complete Blood Count Auto Diff 7 Months I10 - Essential (primary) hypertension, J44.89 - Other specified chronic obstructive pulmonary disease Lipid Panel 7 Months I10 - Essential (primary) hypertension, J44.89 - Other specified chronic obstructive pulmonary disease TSH reflex Free T4 7 Months I10 - Essential (primary) hypertension, J44.89 - Other specified chronic obstructive pulmonary disease Comprehensive Peerless. Panel Fast 7 Months I10 - Essential (primary) hypertension, J44.89 - Other specified chronic obstructive pulmonary disease Vitamin D 25-OH Total 7 Months I10 - Essential (primary) hypertension, J44 - Other specified chronic obstructive pulmonary disease Medications: Discontinued budesonide Discontinued Reason: Doctor's Order 0.5 mg inhalation BID PRN 60 mL 0RF neb
== END 2025-01-15 11:54 | disposition home or self-care (01) ==
LOC: HO.HMCC 11:20
PROVIDERS: PCP Internal Medicine; Visit Provider Internal Medicine
DX: R91.8 Other nonspecific abnormal finding of lung field (principal); J44.89 Other specified chronic obstructive pulmonary disease

== ENCOUNTER → 2025-01-15 11:19 | Outpatient (BNVA) | payer OTHER, SELFPAY | PROVIDERS: PCP Internal Medicine; Visit Provider Internal Medicine ==

== ENCOUNTER 2025-04-18 08:51 | Outpatient (AMB) | payer OTHER, SELFPAY ==
--- NOTE | 2025-04-18 08:53 | A.OFFVIS_ITS ---
Vital Signs 04/18/25 08:54 Height 4 ft 10 in Weight 124 lb 8 oz BMI 26.0 BP 118/70 Blood Pressure Location Lt brachial Position Sitting Pulse 81 Pulse Source Pulse Oximeter Pulse Oximetry (%) 97 Oxygen Delivery Method Room Air Intake Visit Reasons: COPD Allergies spiriva Adverse Reaction (Intermediate, Uncoded 04/18/25 08:56) Chest Pain HPI HPI COPD: Details: Maggie is a pleasant 54 year old female, current smoker, with approximately 50 pack year history with underlying COPD, HTN and GERD. Since the last visit, patient reports excellent control of respiratory symptoms without the need for any medications. She has since stopped Trelegy and has not required albuterol MDI. However, she does note after using a perfume last week symptoms recurred resulting productive cough with clear sputum otherwise denies dyspnea, chest tightness or wheezing. Denies chest congestion, fevers or chills. She denies any visits to urgent Care or hospitalizations related to respiratory distress since the last visit. Today she presents to review RAST testing and discuss repeating chest CT. [facility] Medical History Viral illness HTN (hypertension) Annual physical exam Diarrhea GERD (gastroesophageal reflux disease) Dysphagia Chronic anxiety COPD, mild Hemorrhoids Surgical History History of tubal ligation History of section Hx of tonsillectomy History of esophagogastroduodenoscopy (EGD) Hx of colonoscopy Hx of cholecystectomy Family History Father No problems noted. Mother No problems noted. Social History Housing: House Alcohol intake: current Alcohol intake frequency: 3 or more drinks per day Patient Tobacco Use Status: Current everyday Tobacco user Tobacco use type: Cigarette Cigarette Packs Per Day: 1 e-Cigarette/Vaping Use: Never Used service: No Current occupational status: employed Cognitive needs: No Hearing needs: No Vision needs: Yes Review of Systems Const Denies chills, Denies excessive sweating, Denies fever(s), Denies headache(s) and Denies night sweats Eyes Denies dry eyes, Denies irritation and Denies itchy eyes ENT Reports Normal hearing present, Denies headache(s), Denies nasal congestion, Denies nasal discharge, Denies post nasal drip and Denies sore throat Card Denies chest pain, Denies chest pain at rest, Denies chest pain with activity, Denies claudication, Denies leg edema, Denies dyspnea, Denies dyspnea on exertion, Denies orthopnea and Denies paroxysmal nocturnal dyspnea Resp Denies chest congestion, Reports cough, Denies excessive phlegm production, Denies pain on inspiration, Denies pain with cough, Denies dyspnea, Denies dyspnea on exertion, Denies stridor and Denies wheezing Musc Denies myalgias Neuro Reports Normal hearing present and Denies headache(s) Endo Denies excessive sweating Arnel/Lymph Denies lymphadenopathy Aller/Immun Denies itchy eyes, Denies seasonal rhinorrhea and Denies wheezing Physical Exam Vital Signs: Last Vital Signs Pulse 81 04/18/25 08:54 BP 118/70 04/18/25 08:54 Pulse Ox 97 04/18/25 08:54 Oxygen Delivery Method Room Air 04/18/25 08:54 BMI result Body Mass Index 26.0 Const General: cooperative, healthy appearing, comfortable, no acute distress, well developed and alert Orientation/consciousness: patient oriented x3 Limitations: no limitations HEENT Head: Yes normal to inspection, Yes normocephalic and Yes atraumatic Ears: hearing grossly normal bilaterally and external ears normal Eyes General: appearance normal, both eyes and all related structures Eyelids: Yes eyelids normal Sclerae: sclerae normal EOM: EOMs intact bilaterally Neck Neck: Yes normal visual inspection and Yes no lymphadenopathy Lymphatic: no lymphadenopathy noted Chest Chest palpation & inspection: normal inspection of the chest Resp Effort & Inspection: normal respiratory effort, able to speak in complete sentences, no audible wheezes, no cough, no stridor, not tachypneic, no tripod positioning and no use of accessory muscles Auscultation: clear to auscultation bilaterally Cardio Jugular venous distension: no JVD Rate: regular rate Rhythm: regular rhythm Skin Other: warm, dry General skin exam: no rashes or lesions noted Neuro General: patient oriented x3 Cranial nerves: Yes Normal hearing present Cognition (Neuro): normal cognition Gait exam (Neuro): Normal gait present Extrem General: Yes normal to inspection, Yes capillary refill normal, Yes no clubbing, cyanosis or edema and Yes no pedal edema Psych Appearance: grossly normal and well kempt Speech and movement: Normal speech and movement present and Clear speech present Affect: normal affect Attitude: cooperative Thought process: Normal thought process present Thought content: Normal thought content present Insight: Good insight present (Psych) Judgement: Good judgement present (Psych) Results Reviewed Results Reviewed: [address] [address] [address] Scan Report Signed Patient: Maggie Cerda MR#: [id number] : 1970 Acct:[id number] Age/Sex: 54 / F ADM Date: 11/09/24 Loc: HO.CT Attending Dr: Agatha Cosme MD Ordering Physician: Agatha Cosme MD Date of Service: 11/09/24 Procedure(s): CT chest wo IV con Accession Number(s): [id number] cc: Agatha Cosme MD~ Report Number: [id number]: Total DLP = 102.00 mGy-cm EXAMINATION: CT CHEST WITHOUT CONTRAST CLINICAL INFORMATION: Disorders of diaphragm. COMPARISON: None available. TECHNIQUE: Multidetector volumetric CT imaging of the chest was done. Axial MIP volume rendering provided. Sagittal and coronal reformatted images were obtained. This CT examination was performed using dose optimization techniques as appropriate, variously including the following: *Automated exposure control *Adjustment of mA and/or kV according to patient size (this includes techniques or standardized protocols for targeted exams where dose is matched to indication/reason for exam; i.e. extremities or head) *Use of iterative reconstruction technique FINDINGS: [employer]: Mild elevation right hemidiaphragm noted. LUNGS: There is mild centrilobular emphysema present. There are a few apical blebs. There are localized centrilobular groundglass nodules in the anterior segment right upper lobe, with an appearance suggesting inflammatory/infectious etiology. Similar findings are noted in superior segment right lower lobe. 3 mm nodule in the posterior left lower lobe (series 4, image 106), nonspecific. There is a 1.3 cm pure groundglass nodule in the posterior lateral right upper lobe, nonspecific (series 4, image 53). There are a few small pure groundglass nodules scattered in the left upper lobe largest measuring 5 mm in the posterior left upper lobe (series 4, image 53). These are also nonspecific but likely inflammatory or infectious. Minimal thickening of the small airways, without bronchiectasis, suggesting mild bronchitis. No pleural effusion or pneumothorax. MEDIASTINUM: Normal thyroid. No abnormal lymphadenopathy or mass. Aorta and main pulmonary artery are normal. There is a trace pericardial effusion anteriorly. Heart size is normal. Mildly patulous esophagus present questionable tiny type I hiatus hernia. Findings suggest reflux. Central airways are patent and normal. CORONARY ARTERY CALCIFICATION: None visualized on this study. PLEURA: There is no pleural effusion. No pleural mass or thickening. AXILLA/CHEST WALL: No lymphadenopathy. UPPER ABDOMEN: Cholecystectomy. Unenhanced liver has a normal appearance. Normal spleen, adrenal glands, pancreas, and imaged left kidney. Bowel structures appear normal. OSSEOUS STRUCTURES: No suspicious lytic or blastic bone lesion. Mild degenerative spinal changes. CT/CT chest wo IV con IMPRESSION: 1. There is mild centrilobular emphysema. 2. There are grouped centrilobular groundglass nodules present in the anterior right upper lobe, left upper lobe, superior segment right lower lobe. These are felt to represent infectious/inflammatory abnormality. 3. There is mild diffuse small airway thickening suggesting mild chronic bronchitis. 4. Mild elevation right hemidiaphragm, nonspecific. 5. There is a 1.3 cm groundglass nodule in the posterior lateral right upper lobe. 3 mm nodule left lower lobe. Follow-up CT in one year suggested. 6. Mildly patulous esophagus, with air-fluid levels suggesting possible reflux. 7. Cholecystectomy. Electronically signed by: Preet Brasher MD 11/10/2024 08:28 AM [facility] [place], [place] Assessment & Plan Assessment & Plan (1) COPD (chronic obstructive pulmonary disease): Comment: PFT 07/2023 Code(s): J44.9 - Chronic obstructive pulmonary disease, unspecified Category: Medical (2) Smoker: Comment: since 9 yro, 1/2 PPD Code(s): F17.200 - Nicotine dependence, unspecified, uncomplicated Category: Social Hx (3) Lung nodule, multiple: Code(s): R91.8 - Other nonspecific abnormal finding of lung field Category: Medical Plan Maggie reports good control of respiratory symptoms without the need for any medication however has developed productive cough after recent chemical exposure. Encouragedpatient to restart Trelegy and if symptoms do not improve to call office. Prior Chest CT 11/14 revealed small nodules and ground glass opacities largest measuring 1.3 cm the right upper lobe, will send for repeat chest CT to assess for resolution. RAST revealed allergy to [place] grass otherwise negative. Smoking cessation reviewed. Patient continues to smoke about a pack a day and not interested in quitting at this time. All questions were answered and patient is in agreement of plan. Will follow up in 3 months or sooner if needed. Orders: Orders CT chest wo IV con Today F17.200 - Nicotine dependence, unspecified, uncomplicated, R91.8 - Other nonspecific abnormal finding of lung field Coding Level of Care Code Est Pt Level 4 (82703) Diagnoses COPD (chronic obstructive pulmonary disease) J44.9 Smoker F17.200 Lung nodule, multiple R91.8
[2025-04-18 08:54] VITALS: BP 118/70; PULSE 81; O2SAT 97; BMI 26.0
== END 2025-04-18 09:35 | disposition home or self-care (01) ==
PROVIDERS: PCP Internal Medicine; Visit Provider Nurse Practitioner Family
DX: J44.9 Chronic obstructive pulmonary disease, unspecified (principal); F17.200 Nicotine dependence, unspecified, uncomplicated; R91.8 Other nonspecific abnormal finding of lung field
CPT/HCPCS: 99214

== ENCOUNTER 2025-07-03 16:28 | Outpatient (REF) | payer OTHER, SELFPAY ==
--- NOTE | ~2025-07-03 | CT_ITS ---
EXAMINATION: CT CHEST WITHOUT IV CONTRAST INDICATION: R91.8 - Other nonspecific abnormal finding of lung field COMPARISON: Comparison is made with the prior examination dated 11/09/2024. TECHNIQUE: Helical CT scan of the chest was performed without intravenous contrast. Coronal and sagittal reformatted images were generated and reviewed. This CT exam was performed with one or more of the following dose reduction techniques: automated exposure control, adjustment of the mA and/or kV according to patient size, use of iterative reconstruction technique. DLP: 99 mGy-cm CHEST: THYROID: The thyroid is unremarkable. LUNGS: Again seen is mild emphysema. There is a 1.4 cm groundglass nodule in the right upper lobe (series 4, images 47-49). There is a 2 mm nodule in the left lower lobe (series 4, image 101). No additional pulmonary nodules are identified. MEDIASTINUM: There is no mediastinal lymphadenopathy. JESÚS: Evaluation of the hilar regions is limited by lack of intravenous contrast material. CARDIOVASCULATURE: The heart is normal in size. Again seen is a small pericardial effusion versus anterior pericardial thickening. The thoracic aorta is normal in caliber. DEGREE OF CORONARY CALCIFICATION: none PLEURA: There is no pleural effusion. No pneumothorax. MAIN AIRWAYS: The mainstem bronchi and proximal branches are patent. AXILLA: There is no axillary lymphadenopathy. BONES AND SOFT TISSUES: Unremarkable UPPER ABDOMEN: The visualized portions of the liver, spleen, and adrenals have an unremarkable unenhanced appearance. CT/CT chest wo IV con IMPRESSION: 1. Stable 1.4 cm groundglass nodule in the right upper lobe. Stable 2 mm nodule in the left lower lobe. 2. Mild emphysema. Because mild emphysema is an independent risk factor for lung cancer, consider entering the patient into a program of yearly lung cancer screening with low dose chest CT. Electronically signed by: Harshil Ortega MD 07/04/2025 07:16 AM EDT
== END 2025-07-03 16:29 | disposition home or self-care (01) ==
LOC: HO.CT 16:28
PROVIDERS: PCP Internal Medicine; Visit Provider Nurse Practitioner Family
DX: R91.8 Other nonspecific abnormal finding of lung field (principal); F17.200 Nicotine dependence, unspecified, uncomplicated
CPT/HCPCS: 71250

== ENCOUNTER → 2025-07-03 16:31 | Outpatient (BNV) | payer OTHER, SELFPAY | PROVIDERS: PCP Internal Medicine; Visit Provider Radiology Diagnostic Radiology | DX: R91.8 Other nonspecific abnormal finding of lung field (principal); J43.9 Emphysema, unspecified | CPT/HCPCS: 71250 ==

== ENCOUNTER 2025-07-14 11:22 | Outpatient (AMB) | payer OTHER, SELFPAY ==
[2025-07-14 11:23] VITALS: BP 140/82; PULSE 83; TEMP 36.7; O2SAT 96; BMI 25.9
--- NOTE | 2025-07-14 11:23 | AM.OFFWIN_ITS ---
Intake Vital Signs 07/14/25 11:23 Height 4 ft 10 in Weight 124 lb BMI 25.9 BP 140/82 H Blood Pressure Location Lt brachial Position Sitting Pulse 83 Pulse Source Pulse Oximeter Temp 98.0 F Temp Source Oral Pulse Oximetry (%) 96 Intake Visit Reasons: EP Left side of throat swollen Patient Tobacco Use Status: Current everyday Tobacco user Allergies spiriva Adverse Reaction (Intermediate, Uncoded 07/14/25 11:29) Chest Pain Medication List - Last Reconciled 07/14/25 by Patti Kaufman, COORDINATE MEASURING MACHINE OPERATOR- albuterol sulfate 2.5 mg (3 mL) inhalation Q4-6H PRN albuterol sulfate 90 mcg/actuation 2 puffs inhalation Q6H PRN bupropion HCl SR 150 mg PO BID cholecalciferol (vitamin D3) 50 mcg PO DAILY ferrous sulfate 324 mg PO Q OTHER DAY ipratropium-albuterol 0.5 mg-3 mg(2.5 mg base)/3 mL 3 mL inhalation Q6H PRN metoprolol succinate ER 50 mg PO DAILY naproxen 500 mg PO BID PRN 14 days Do you need a note to return to daycare/school/sports/work: No HPI HPI Comments History of Present Illness Details History of Present Illness The patient is a 55-year-old female presenting with complaints of left side throat swelling and pain. Pharyngitis: - Left side throat swelling onset yester day. Pain is deeper than her throat - Pain radiates from throat to jaw, wors ened by swallowing and chewing. - Reports metallic taste of blood with s wallowing. - No fever, chills, or cough. Gastroesophageal Reflux Disease (GERD): - Diagnosed GERD, treated with Prilosec daily. - Avoids spicy foods due to exacerbation of GERD. Tobacco Use Disorder: - Current daily tobacco use. - Smoking discussed in context of risk f or deeper symptoms. Review of Systems - Ears, Nose, Throat: Reports throat cherie n on left side, swelling, tasting blood when swallowing. Denies fever, chills, cough, and previous throat issues. - Gastrointestinal: Reports daily use of Prilosec for GERD. Avoids spicy foods. - Social: Reports being a current everyd ay tobacco user. Physical Exam General: Well developed, well nourished, in no acute distress. Appears stated age. Head: Normocephalic, atraumatic. Eyes: Pupils are equal, round and reactive to light and accommodation. Conjunctivae are clear. Ears: TM intact and clear bilat Nose: Patent Throat: MMM pharynx clear, uvula midline She has pain with palpation over the left lateral side of anterior neck/trachea; no hot potatoe voice; managing secretions. Neck: Supple, no adenopathy. Lungs: Clear to auscultation bilaterally. No rales, rhonchi or wheeze noted. Good air flow in all reina. Heart: Regular rate and rhythm. No murmurs, click, rubs or gallops are noted. Discussion Notes I discussed with the patient her current symptoms of left-side throat pain and the sensation of tasting blood when swallowing. An antibiotic was prescribed to cover potential bacterial causes, such as pharyngitis. I advised her to continue omeprazole for GERD and explained the likelihood of throat irritation compounded by tobacco use. Pain management options like Tylenol were suggested, and I expressed the importance of returning if symptoms do not improve, emphasizing the potential need for further investigation into deeper esophageal issues. The patient was informed of dietary precautions to avoid exacerbating symptoms. Follow-up with her primary care physician was advised for continuity of care. Patient was given time to ask questions. All questions were answered to their satisfaction. Assessment and Plan 1. Pharyngitis - Augmentin 2x daily for 7 days. - Use OTC pain relievers PRN - Return if no improvement to assess fur ther. 2. Gastroesophageal Reflux Disease (GERD ) - Continue Prilosec daily. - Maintain dietary precautions. 3. Tobacco Use Disorder - Discuss cessation support. Patient Instructions - Take Amoxicillin as directed, with theo d. - Use Tylenol or ibuprofen for pain. - Avoid hot, spicy, and sharp foods. - Continue taking omeprazole daily. - Quit smoking. - Return to healthcare provider if sympt oms do not improve. Consent. Patient was informed and verbally consented to the use of an ambient scribe for clinic note documentation during this visit. [facility] Medical History Viral illness HTN (hypertension) Annual physical exam Diarrhea GERD (gastroesophageal reflux disease) Dysphagia Chronic anxiety COPD, mild Hemorrhoids Surgical History History of tubal ligation History of section Hx of tonsillectomy History of esophagogastroduodenoscopy (EGD) Hx of colonoscopy Hx of cholecystectomy Family History Father No problems noted. Mother No problems noted. Social History Housing: House Alcohol intake: current Alcohol intake frequency: 3 or more drinks per day Patient Tobacco Use Status: Current everyday Tobacco user Tobacco use type: Cigarette Cigarette Packs Per Day: 1 e-Cigarette/Vaping Use: Never Used service: No Current occupational status: employed Cognitive needs: No Hearing needs: No Vision needs: Yes Physical Exam Vital Signs: Last Vital Signs Temp 98.0 F 07/14/25 11:23 Pulse 83 07/14/25 11:23 BP 140/82 H 07/14/25 11:23 Pulse Ox 96 07/14/25 11:23 BMI result Body Mass Index 25.9 Assessment & Plan Assessment & Plan (1) Throat pain: Code(s): R07.0 - Pain in throat (2) Smoker: Comment: since 9 yro, 1/ PPD Code(s): F17.200 - Nicotine dependence, unspecified, uncomplicated (3) GERD (gastroesophageal reflux disease): Code(s): K21.9 - Gastro-esophageal reflux disease without esophagitis Plan . Orders: Orders AMB Rapid Strep Screen Today Z13.9 - Encounter for screening, unspecified Medications: New amoxicillin-pot clavulanate 875-125 mg 1 tab PO BID 14 tabs 0RF 7 days Coding Level of Care Code Est Pt Level 3 (42985) Diagnoses Throat pain R07.0 Smoker F17.200 GERD (gastroesophageal reflux disease) K21.9
== END 2025-07-14 11:39 | disposition home or self-care (01) ==
PROVIDERS: PCP Internal Medicine; Visit Provider Nurse Practitioner Family
DX: R07.0 Pain in throat (principal); F17.200 Nicotine dependence, unspecified, uncomplicated; K21.9 Gastro-esophageal reflux disease without esophagitis

== ENCOUNTER → 2025-07-14 11:22 | Outpatient (BNVA) | payer OTHER, SELFPAY | PROVIDERS: PCP Internal Medicine; Visit Provider Nurse Practitioner Family | DX: K21.9 Gastro-esophageal reflux disease without esophagitis (principal); J02.9 Acute pharyngitis, unspecified; F17.210 Nicotine dependence, cigarettes, uncomplicated | CPT/HCPCS: 87880 ==

== ENCOUNTER 2025-07-27 11:52 | Outpatient (AMB) | payer OTHER, SELFPAY ==
[2025-07-27 12:10] VITALS: BP 114/66; PULSE 73; RESP 17; TEMP 36.6; O2SAT 98; BMI 27.0
--- NOTE | 2025-07-27 12:10 | A.OFFPC_ITS ---
Vital Signs 07/27/25 12:10 Height 4 ft 10 in Weight 129 lb BMI 27.0 BP 114/66 Blood Pressure Location Lt brachial Position Sitting Respiration 17 Pulse 73 Pulse Source Pulse Oximeter Temp 97.9 F Temp Source Oral Pulse Oximetry (%) 98 Oxygen Delivery Method Room Air Intake Visit Reasons: Annual PE Intake Note: Pt is here today for PE. Allergies spiriva Adverse Reaction (Intermediate, Uncoded 07/27/25 12:10) Chest Pain Medication List - Last Reconciled 07/27/25 by Agatha Cosme MD albuterol sulfate 2.5 mg (3 mL) inhalation Q4-6H PRN albuterol sulfate 90 mcg/actuation 2 puffs inhalation Q6H PRN bupropion HCl SR 150 mg PO BID cholecalciferol (vitamin D3) 50 mcg PO DAILY ferrous sulfate 324 mg PO Q OTHER DAY ipratropium-albuterol 0.5 mg-3 mg(2.5 mg base)/3 mL 3 mL inhalation Q6H PRN metoprolol succinate ER 50 mg PO DAILY naproxen 500 mg PO BID PRN 14 days Tobacco use date assessed: 07/27/25 Dental Screening Dental Screen Date: 11/08/24 HPI Annual PE HPI Details Pt presents for PE. PFSH Medical History (Updated 07/27/25 @ 15:37 by Agatha Cosme MD) Lung nodule, multiple Asthma-COPD overlap syndrome Viral illness HTN (hypertension) Annual physical exam Diarrhea GERD (gastroesophageal reflux disease) Dysphagia Chronic anxiety COPD, mild Hemorrhoids Surgical History History of tubal ligation History of section Hx of tonsillectomy History of esophagogastroduodenoscopy (EGD) Hx of colonoscopy Hx of cholecystectomy Family History Father No problems noted. Mother No problems noted. Social History Housing: House Alcohol intake: current Alcohol intake frequency: 3 or more drinks per day Patient Tobacco Use Status: Current everyday Tobacco user Tobacco use type: Cigarette Cigarette Packs Per Day: 1 e-Cigarette/Vaping Use: Never Used service: No Current occupational status: employed Cognitive needs: No Hearing needs: No Vision needs: Yes Questionnaire PHQ-9 Over the last 2 weeks, how often have you been bothered by any of the following problems? 1. Little interest or pleasure in doing things: more than half the days 2. Feeling down, depressed, or hopeless: not at all 3. Trouble falling or staying asleep, or sleeping too much: not at all 4. Feeling tired or having little energy: more than half the days 5. Poor appetite or overeating: not at all 6. Feeling bad about yourself - or that you are a failure or have let yourself or your family down: not at all 7. Trouble concentrating on things, such as reading the newspaper or watching television: not at all 8. Moving or speaking so slowly that other people could have noticed. Or the opposite - being so fidgety or restless that you have been moving around a lot more than usual: more than half the days 9. Thoughts that you would be better off or of hurting yourself in some way: not at all Total score: 6 Depression Screening Interpretation: Negative Depression Screening Done: Yes Source: Developed by Drs. Harshil Giron, Mira Conrad, Andres Luke and colleagues, with an educational lily from [employer]. Thrive Questionnaire Date Thrive assessed: 10/10/24 I am a: Patient What is your living situation today?: I have a steady place to live Within the past 12 months, did the food you bought not last and you didn't have the money to get more?: Never true Within the past 12 months, did you worry whether your food would run out before you got money to buy more?: Never true Do you have trouble paying for medicines?: No Do you have trouble getting transportation to medical appointments?: No Do you have trouble paying your heating and electricity bill?: No Do you have trouble taking care of your child, family member or friend?: No Do you have trouble with day-to-day activities such as bathing, preparing meals, shopping, managing finances, etc.?: No Are you currently unemployed and looking for a job?: No Are you interested in more education?: No Please select the resources that you would like help with: None Currently or been in a relationship where the following occur: No concerns reported THRIVE Score: 0 MARCO ANTONIO-7 AMB Questionnaire MARCO ANTONIO-7 Date MARCO ANTONIO - 7 assessed: 11/17/24 Feeling nervous, anxious, or on edge: 0 = Not at all Not being able to stop or control worryin = Not at all Worrying too much about different things: 0 = Not at all Trouble relaxin = Not at all Being so restless that it is hard to sit still: 0 = Not at all Becoming easily annoyed or irritable: 0 = Not at all Feeling afraid as if something awful might happen: 0 = Not at all Total MARCO ANTONIO-7 score (0-4 normal; 5-9 mild; 10-14 moderate; 15-21 severe): 0 Source: Developed by Drs. Harshil Giron, Mira Conrad, Andres Luke and colleagues, with an educational lily from [employer]. Review of Systems Const All systems reviewed & are unremarkable except as noted in HPI and below Eyes Reports no additional complaints ENT Reports no additional complaints Card Reports no additional complaints Resp Reports no additional complaints GI Reports no additional complaints Reports no additional complaints Physical exam (Primary Care) Vital Signs: Last Vital Signs Temp 97.9 F 07/27/25 12:10 Pulse 73 07/27/25 12:10 Resp 17 07/27/25 12:10 BP 114/66 07/27/25 12:10 Pulse Ox 98 07/27/25 12:10 Oxygen Delivery Method Room Air 07/27/25 12:10 BMI result Body Mass Index 27.0 Tobacco/Smoking Status: Tobacco use Status Tobacco use date assessed 07/27/25 07/27/25 12:16 Patient Tobacco Use Status Current everyday Tobacco 07/27/25 12:16 Tobacco use type Cigarette 07/27/25 12:16 e-Cigarette/Vaping Use Never Used 07/27/25 12:16 PHQ-9: PHQ-9 Score PHQ-9: Total score 6 07/27/25 12:44 Depression Screening Interpretation: Negative Thrive Assessment: Date of Thrive Assessment Date Thrive assessed 10/10/24 07/27/25 12:16 Currently or been in a relationship where the following occur: No concerns reported Const General: no acute distress HENMT Head: Yes normal to inspection Face and sinus: Yes normal facial exam Throat: Yes posterior oropharynx normal Neck Neck: Yes supple Resp Effort & Inspection: normal respiratory effort Auscultation: clear to auscultation bilaterally Cardio Rhythm: regular rhythm Heart sounds: S1 normal heart sound present and S2 normal heart sound present GI Inspection: Yes normal to inspection Palpation (GI): Soft to palpation Percussion: Yes normal to percussion Auscultation: normal bowel sounds Coding Level of Care Code Est Pt Prev Care 40-64y(00058) Diagnoses HTN (hypertension) I10 Anemia D64.9 Asthma-COPD overlap syndrome J44.89 Annual physical exam Z00.00 Assessment & Plan Assessment & Plan (1) HTN (hypertension): Code(s): I10 - Essential (primary) hypertension Category: Medical Plan: Continue metoprolol (2) Anemia: Comment: Iron deficiency due to heavy menses, on iron replacement Code(s): D64.9 - Anemia, unspecified Category: Medical Plan: Monitor CBC and iron, continue iron supplement (3) Asthma-COPD overlap syndrome: Comment: PFTs partially reversible obstruction, no decreased diffusion capacity 11/2024, use albuterol PRN Code(s): J44.89 - Other specified chronic obstructive pulmonary disease Category: Medical Plan: Continue albuterol PRN (4) Annual physical exam: Code(s): Z00.00 - Encounter for general adult medical examination without abnormal findings Category: Medical Plan: Well-balanced diet regular physical activity discussed with the patient continue Wellbutrin for chronic anxiety. Patient is up-to-date with the mammogram colonoscopy and Pap smear Orders: Orders Lipid Panel Today D64.9 - Anemia, unspecified, I10 - Essential (primary) hypertension thyroid Today E04.9 - Nontoxic goiter, unspecified Comprehensive [place]. Panel Fast Today D64.9 - Anemia, unspecified, I10 - Essential (primary) hypertension Complete Blood Count Auto Diff Today D64.9 - Anemia, unspecified, I10 - Essential (primary) hypertension TSH reflex Free T4 Today D64.9 - Anemia, unspecified, I10 - Essential (primary) hypertension Vitamin D 25-OH Total Today D64.9 - Anemia, unspecified, I10 - Essential (primary) hypertension Medications: New bupropion HCl XL (Wellbutrin XL) 150 mg PO QAM 90 tabs 1RF Discontinued bupropion HCl SR Discontinued Reason: Doctor's Order 150 mg PO BID 180 tabs 3RF
== END 2025-07-27 15:41 | disposition home or self-care (01) ==
LOC: HO.HMCC 11:52
PROVIDERS: PCP Internal Medicine; Visit Provider Internal Medicine
DX: Z00.00 Encounter for general adult medical examination without abnormal findings (principal); I10 Essential (primary) hypertension; D64.9 Anemia, unspecified; J44.89 Other specified chronic obstructive pulmonary disease

== ENCOUNTER 2025-08-23 08:23 | Outpatient (REF) | payer OTHER, SELFPAY ==
--- NOTE | ~2025-08-23 | US_ITS ---
EXAMINATION: US THYROID CLINICAL INFORMATION: Goiter. COMPARISON: None available. TECHNIQUE: Linear transducer grayscale and color Doppler examination with attention to the region of the thyroid. FINDINGS: SIZE: Measurements of the thyroid lobes and nodules are given in sagittal, anteroposterior and transverse dimensions respectively. Right Thyroid Lobe: 5.8 x 1.6 x 2.2 cm, volume 10.8 mL. Parenchyma: The gland echotexture is normal. Thyroid vascularity is normal. Left Thyroid Lobe: 5.2 x 1.3 x 2.0 cm, volume 7.3 mL. Parenchyma: The gland echotexture is normal. Thyroid vascularity is normal. Isthmus: 0.4 cm in maximum AP dimension. Estimated total number of nodules greater than or equal to 1 cm: 0. [employer] nodules are described as follows: 1. Location: Lower pole left lobe. Size: 0.4 x 0.3 x 0.4 cm, volume 0.0 23 mL. Nodule characteristics: Composition: Solid (2). Echogenicity: Hypoechoic (2). Shape: Not taller than wide (0). Margins: Smooth (0). Echogenic Foci: None (0). ACR TI-RADS total points: 4 ACR TI-RADS category: 4 2. Location: Lower pole left lobe. Size: 0.9 x 0.6 x 0.9 cm, volume 0.267 mL. Nodule characteristics: Composition: Solid/almost completely solid (2). Echogenicity: Undetermined (1) Shape: Not taller than wide (0). Margins: Smooth (0). Echogenic Foci: None (0). ACR TI-RADS total points: 3 ACR TI-RADS category: 3 NODES: No lymphadenopathy is seen in the tissue surrounding the thyroid gland. US/US thyroid IMPRESSION: ACR TI-RADS category 3 and 4. ACR TI-RADS RECOMMENDATION REFERENCE: Ultrasound-guided fine-needle aspiration, followup ultrasound, no further follow up. * TR1 (0 point) and TR2 (2 points): No FNA or follow up. * TR3 (3 points): FNA if more than or equal to 2.5 cm in maximum dimension, followup ultrasound in 1, 3 and 5 years if 1.5 to 2.4 cm in maximum dimension. * TR4 (4-6 points): FNA if more than or equal to 1.5 cm in maximum dimension, followup ultrasound in 1, 2, 3 and 5 years if 1 to 1.4 cm in maximum dimension. * TR5 (more than or equal to 7 points): FNA if more than or equal to 1 cm in maximum dimension, followup ultrasound every year for 5 years if 0.5 to 0.9 cm in maximum dimension. * TR3, TR4 or TR5 nodules that are below the size threshold for followup receive no follow up. Electronically signed by: Rock Razo MD 08/23/2025 10:04 AM SHELLI MOHAMUD
== END 2025-08-23 08:24 | disposition home or self-care (01) ==
LOC: HO.US 08:23
PROVIDERS: PCP Internal Medicine; Visit Provider Internal Medicine
DX: E04.9 Nontoxic goiter, unspecified (principal)
CPT/HCPCS: 76536

== ENCOUNTER → 2025-08-23 08:25 | Outpatient (BNV) | payer OTHER, SELFPAY | PROVIDERS: PCP Internal Medicine; Visit Provider Radiology Diagnostic Radiology | DX: E04.9 Nontoxic goiter, unspecified (principal) | CPT/HCPCS: 76536 ==